=== PATIENT | male | born 1970 | race American Indian/Alaskan Native ===

== ENCOUNTER 2018-01-11 15:15 | Inpatient (IN) | payer MEDICARE, BC ==
[2018-01-11] MEDS ORDERED: Aspirin 325 mg EC Tablets PO STA (15:30)
--- NOTE | 2018-01-11 15:35 | C.PDOC ---
History Of Present Illness 47 y/o male with history of HTN, CHF and End stage Renal disease presents to ED after dialysis with c/o chest pain 4/10 and palpitations with associated nausea and sob. Patient speaking in short sentences and denies vomiting, abdominal pain , leg swelling, lightheadedness or any other complaints at this time. PMD Dr. Johns in [place], [place] Time Seen by Provider: 01/11/18 15:22 Chief Complaint (Nursing): Chest Pain History Per: Patient History/Exam Limitations: no limitations Onset/Duration Of Symptoms: Hrs Current Symptoms Are (Timing): Still Present Quality: "Pain" Past Medical History Reviewed: Historical Data, Nursing Documentation, Vital Signs Vital Signs: Last Vital Signs Temp 100.5 F H 01/11/18 15:39 Pulse 98 H 01/11/18 17:04 Resp 21 01/11/18 17:04 BP 92/55 L 01/11/18 17:04 Pulse Ox 100 01/11/18 17:37 - Medical History PMH: CHF, HTN Surgical History: No Surg Hx Family History: States: No Known Family Hx - Social History Hx Alcohol Use: No Hx Substance Use: No - Immunization History Hx Tetanus Toxoid Vaccination: No Hx Influenza Vaccination: No Hx Pneumococcal Vaccination: No Review Of Systems Constitutional: Negative for: Fever, Chills Cardiovascular: Positive for: Chest Pain, Palpitations Respiratory: Positive for: Shortness of Breath. Negative for: Cough Gastrointestinal: Positive for: Nausea. Negative for: Vomiting, Abdominal Pain Skin: Negative for: Rash Physical Exam - Physical Exam Appears: Non-toxic, Other (Anxious) Skin: Warm, Dry, No Rash Head: Atraumatic, Normacephalic Eye(s): bilateral: Normal Inspection Oral Mucosa: Moist Neck: Normal ROM, Supple Cardiovascular: Rhythm Regular, Other (Tachycardic) Respiratory: Normal Breath Sounds, No Rales, No Rhonchi, No Wheezing Gastrointestinal/Abdominal: Soft, No Tenderness, No Guarding, No Rebound Extremity: No Pedal Edema, No Calf Tenderness, Capillary Refill (<2 seconds), Other (AV fistula to right arm noted) Neurological/Psych: Oriented x3, Normal Speech, Normal Cognition ED Course And Treatment - Laboratory Results Result Diagrams: 01/11/18 15:54 01/11/18 15:54 ECG: Interpreted By Me, Viewed By Me ECG Rhythm: Sinus Tachycardia, L BBB Rate From EC (BPM) O2 Sat by Pulse Oximetry: 100 (RA) Pulse Ox Interpretation: Normal Progress Note: EKG, CXR, Blood work ordered. Apririn adminsitered. Spoke to Dr. Ortiz, consult with diyalysis doctor . Patient on repeat vitals fever of 102 started on antibiotics to treat possible infection. Patient stable feeling comfortable denies any pain sat O2 at 100%. Spoke to Dr. Herrera leather currier for consult Disposition Discussed With Dr.: Almita Ortiz Doctor Will See Patient In The: Hospital Counseled Patient/Family Regarding: Studies Performed - Disposition Disposition: HOSPITALIZED Disposition Time: 17:31 Condition: GUARDED - Clinical Impression Clinical Impression: Chest pain, SOB (shortness of breath) - Scribe Statement The provider has reviewed the documentation as recorded by the Scribe Artie Mcpherson All medical record entries made by the Scribe were at my direction and personally dictated by me. I have reviewed the chart and agree that the record accurately reflects my personal performance of the history, physical exam, medical decision making, and the department course for this patient. I have also personally directed, reviewed, and agree with the discharge instructions and disposition. Decision To Admit - Pt Status Changed To: Hospital Disposition Of: Observation - InPatient: Physician Admission Certification: I certify that this patient requires 2 or more midnights of care for the following reason:: cp, SOB in patient with multiple risk factors. Abnormal EKG - . Bed Request Type: Telemetry Patient Diagnosis: Chest pain, SOB (shortness of breath)
[2018-01-11 15:57] LABS: BASO # 0.1 K/uL (0.0-0.2); BASO % 1.1 % (0.0-2.0); EOS % 0.2 % (0.0-4.0); HEMOGLOBIN 11.1 g/dL (12.0-18.0); LYMPH # 2.4 K/uL (1.0-4.3); LYMPH % 20.9 % (20.0-40.0); MEAN CELL VOLUME 91.8 fL (80.0-94.0); MEAN CORPUSCULAR HEMOGLOBIN 31.4 pg (27.0-31.0); MEAN CORPUSCULAR HGB CONC 34.2 g/dL (33.0-37.0); MEAN PLATELET VOLUME 7.1 fL (7.2-11.7); MONO # 1.4 K/uL (0.0-0.8); MONO % 11.7 % (0.0-10.0); NEUT # 7.7 K/uL (1.8-7.0); NEUT % 66.1 % (50.0-75.0); RBC 3.54 Mil/uL (4.40-5.90); RED CELL DISTRIBUTION WIDTH 13.4 % (11.5-14.5); WHITE BLOOD COUNT 11.7 K/uL (4.8-10.8)
--- NOTE | 2018-01-11 16:17 | RAD ---
PROCEDURE: CHEST RADIOGRAPH, 1 VIEW HISTORY: chest pain COMPARISON: None available. FINDINGS: LUNGS: Clear. PLEURA: No pneumothorax or pleural fluid seen. CARDIOVASCULAR: No radiographic findings to suggest acute or significant cardiovascular disease. OSSEOUS STRUCTURES: No significant abnormalities. VISUALIZED UPPER ABDOMEN: Normal. OTHER FINDINGS: None. IMPRESSION: No active disease.
[2018-01-11 16:35] LABS: ALBUMIN 4.2 g/dL (3.5-5.0); CALCIUM 9.2 mg/dl (8.6-10.4)
[2018-01-11 16:38] LABS: TROPONIN I 0.07 ng/mL (0.00-0.120)
[2018-01-11] MEDS ORDERED: Vancomycin 1 gm/NS 200 ml 1 GM/200 ML BAG IVPB STA (18:08)
[2018-01-11] MEDS ORDERED: Piperacill/Tazo 3.375gm in Dex 3.375 GM/50 ML BAG IVPB STA (18:08)
[2018-01-11 18:57] LABS: VENOUS BLOOD GAS BASE EXCESS 10.5 mmol/L (0.0-2.0); VENOUS BLOOD GAS PCO2 41 mmHg (40-60); VENOUS BLOOD GAS PO2 35 mm/Hg (30-55); VENOUS BLOOD PH 7.53 (7.32-7.43)
--- NOTE | 2018-01-11 19:00 | RAD ---
HISTORY: Sepsis Patient COMPARISON: January 11, 2018. 15:53. FINDINGS: LUNGS: No active pulmonary disease. PLEURA: No significant pleural effusion identified, no pneumothorax apparent. CARDIOVASCULAR: She No radiographic findings to suggest acute or significant cardiovascular disease. OSSEOUS STRUCTURES: No significant abnormalities. VISUALIZED UPPER ABDOMEN: Normal. OTHER FINDINGS: None. IMPRESSION: No active disease. No significant interval change compared to the prior examination(s).
--- NOTE | 2018-01-11 20:09 | CP.PCM.HP ---
History of Present Illness - History of Present Illness History of Present Illness: COMPREHENSIVE HISTORY & PHYSICAL EXAM HPI ADMITTED [facility] FOR CHEST PAIN AND FEVER OF 101F NO COUGH/SOB PAST HIST. HTN/CRF ON HD PERSONAL HIST: Smoking. N Alcohol. N Allergy N Travel_- . FAMILY HIST : ROS : Constitutional: . Eyes: Negative for redness, swelling, itching, discharge, vision changes, blurry vision, double vision, glaucoma, cataracts, Ears: Negative for hearing loss, ringing, , tinnitus, vertigo Nose: Negative for rhinorrhea, stuffiness, sniffing, itching, postnasal drip, discoloration, nasal congestion and epistaxis. Throat: Negative for throat clearing, sore throat, hoarseness, difficulty swallowing and difficulty speaking. Respiratory: Negative for cough, chest tightness, sputum or phlegm, chronic cough, hemoptysis, wheezing, snoring at night, pleuritic chest pain and daytime somnolence. Cardiovascular: Negative, Edema of legs, leg cramps, angina, claudication, , irregular heartbeat, Neurology: Negative for irritability, muscle weakness, numbness and tingling, seizures, tremors, migraines, slurred speech, syncope, memory loss, mood changes , recurrent headaches Gastrointestinal: Negative for difficulty swallowing, diarrhea, constipation, black stools, rectal bleeding, nausea, flatulence, reflux, poor appetite, changes in bowel habits, abdominal pain Genitourinary: Negative for frequent urination, hematuria, discharge, incontinence, urinary retention, frequent UTI, Psychiatric: Negative for depression, anxiety/panic, suicidal tendencies, Musculoskeletal: Negative for swollen joints, back pain, , neck pain, morning stiffness of joints, . Skin: Negative for rash, ulcers, itching, dry skin and pigmented lesions. P/E: Constitutional: Appears stated age and in no apparent distress. Head: Normocephalic. Ears: External ear canals patent without inflammation. Tympanic membranes intact with normal light reflex and landmark. Eyes: Pupils are central, bilaterally equal, symmetrical and reacts to light with normal movements and no icterus or pallor. Nose: External nares are patent. Mucosa is pink Mouth-Throat: Good general appearance and condition. No post-pharyngeal/oropharyngeal erythema and tonsillar hypertrophy. Good dental hygiene. Neck-Lymphatic: Neck is supple with normal ROM, no thyromegaly, lymph nodes or masses. JVD is normal with no carotid bruit. Lungs: Clear to percussion and auscultation with bilateral normal air entry. Cardiovascular: S1 and S2 are normal with no murmurs, gallops and rub. GI Exam: No hepatomegaly. Abdomen is soft and non-tender. No Organomegaly , masses or hernias are evident and bowel sounds are normal and active. Neurology: Higher function and all cranial nerves intact, with no gross motor or sensory deficit. Superficial and deep reflexes are normal with downwards planters. No cerebellar deficit with normal gait. Musculoskeletal: No tender spots with normal curvature of the spine with no swelling or restricted ROM of the small and large joints. Extremities: Homans sign absent. Intact pulses with no pitting edema, calf tenderness or skin color changes. L ARM AV SHUNT Skin: No rash, eruptions or abnormal skin pigmentation LAB/RADIOLOGY: ASSESMENT : ACUTE CORONARY SYND SEPSIS CRF ON HD ACUTE ON CH. SYSTOLIC HF Present on Admission - Present on Admission Any Indicators Present on Admission: No Past Patient History - Past Social History Smoking Status: Never Smoked - CARDIAC Hx Congestive Heart Failure: Yes Hx Hypertension: Yes - RENAL Hx Renal Failure: Yes - PSYCHIATRIC Hx Substance Use: No Meds Allergies/Adverse Reactions: Allergies Allergy/AdvReac Type Severity Reaction Status Date / Time No Known Allergies Allergy Verified 01/11/18 15:23 Results - Vital Signs Recent Vital Signs: Last Vital Signs Temp 98.3 F 01/11/18 19:20 Pulse 92 H 01/11/18 19:20 Resp 20 01/11/18 19:20 BP 104/68 01/11/18 19:20 Pulse Ox 98 01/11/18 19:20 - Labs Result Diagrams: 01/14/18 11:32 01/14/18 11:32 Labs: Laboratory Results - last 24 hr 01/11/18 01/11/18 01/11/18 15:54 15:54 18:53 WBC 11.7 H RBC 3.54 L Hgb 11.1 L Hct 32.5 L MCV 91.8 MCH 31.4 H MCHC 34.2 RDW 13.4 Plt Count 337 MPV 7.1 L Neut % (Auto) 66.1 Lymph % (Auto) 20.9 [place] % (Auto) 11.7 H Eos % (Auto) 0.2 Baso % (Auto) 1.1 Neut # (Auto) 7.7 H Lymph # (Auto) 2.4 [place] # (Auto) 1.4 H Eos # (Auto) 0.0 Baso # (Auto) 0.1 pO2 35 VBG pH 7.53 H VBG pCO2 41 VBG HCO3 32.5 VBG Total CO2 35.6 H VBG O2 Sat (Calc) 76.9 H VBG Base Excess 10.5 H VBG Potassium 3.2 L Glucose 133 H Lactate 1.5 Sodium 140 138.0 Potassium 3.6 Chloride 89 L 97.0 L Carbon Dioxide 29 Anion Gap 25 H BUN 40 H Creatinine 8.8 H* Est GFR ( Amer) 8 Est GFR (Non-Af Amer) 6 Random Glucose 109 Calcium 9.2 Total Bilirubin 1.0 AST 27 ALT 21 Alkaline Phosphatase 77 Troponin I 0.0700 NT-Pro-B Natriuret Pep 6870 H Total Protein 8.5 H Albumin 4.2 Globulin 4.3 H Albumin/Globulin Ratio 1.0 Venous Blood Potassium 3.2 L
--- NOTE | 2018-01-11 21:26 | CP.PCM.CON ---
History of Present Illness - History of Present Illness History of Present Illness: INFECTIOUS DISEASE CONSULT; HPI; 47 y/o male with history of HTN, CHF and End stage Renal disease on HD TTS, presents to ED after dialysis with c/o chest pain 4/10 and palpitations with associated nausea and Shortness of breath. Patient was found to have fever of 102 with chills, myalgias and pain both lower extremities. Patient's proBNP was 6870, a chest x-ray was unremarkable with no active disease. Patient's d-dimer was also elevated to 863. Patient was empirically started on Zosyn 3.3751 dose and IV vancomycin 1 g dose was given in the ER after appropriate cultures. Patient denies any history of hemoptysis/or hematemesis. Patient reported he was at urologist Dr. Cervantes 's office yesterday because of hematuria, who sent him to lab [facility] for appropriate UA and urine cultures and patient was supposed to see him the next day that he had chest pain and came to the ER. INFECTIOUS DISEASE CONSULTATION REQUESTED BY PMD FOR ELEVATED FEVERS AND LEUKOCYTOSIS. PATIENT UNDERWENT VQ SCAN THIS A.M WHICH WAS NEGATIVE FOR PE. VENOUS DOPPLERS LOWER EXTREMITY ALSO -VE FOR DVT. PMH: CHF, HTN Surgical History: No Surg Hx Family History: States: No Known Family Hx - Social History Hx Alcohol Use: No Hx Substance Use: No - Immunization History Hx Tetanus Toxoid Vaccination: No Hx Influenza Vaccination: No Hx Pneumococcal Vaccination: No ALLERGY; NKA Review of Systems - Review of Systems Systems not reviewed;Unavailable: Respiratory Distress - Constitutional Constitutional: Chills, Fever. absent: Headache - EENT Eyes: absent: Change in Vision, Photophobia Nose/Mouth/Throat: absent: Mouth Lesions, Sore Throat - Cardiovascular Cardiovascular: Chest Pain, Dyspnea, Leg Edema - Respiratory Respiratory: absent: Cough, Hemoptysis - Gastrointestinal Gastrointestinal: absent: Abdominal Pain, Constipation, Diarrhea, Loose Stools - Genitourinary Genitourinary: Difficulty Urinating, Dysuria, Hematuria, Urinary Hesitance - Musculoskeletal Musculoskeletal: Myalgias. absent: Back Pain, Neck Pain - Neurological Neurological: absent: Dizziness, Headaches - Hematologic/Lymphatic Hematologic: As Per HPI. absent: Easy Bruising, Lymphadenopathy Past Patient History - Past Social History Smoking Status: Never Smoked - CARDIAC Hx Congestive Heart Failure: Yes Hx Hypertension: Yes - RENAL Hx Renal Failure: Yes - PSYCHIATRIC Hx Substance Use: No Meds Allergies/Adverse Reactions: Allergies Allergy/AdvReac Type Severity Reaction Status Date / Time No Known Allergies Allergy Verified 01/11/18 15:23 - Medications Medications: Current Medications Aspirin (Ecotrin) 81 mg PO DAILY [facility] Cinacalcet (Sensipar) 60 mg PO DAILY [facility] Heparin Sodium (Porcine) (Heparin) 5,000 units SC Q8 [facility] Ceftriaxone Sodium 1 gm/ (Sodium Chloride) 100 mls @ 100 mls/hr IVPB DAILY [facility] PRN Reason: Protocol Sevelamer Carbonate (Renvela) 3,200 mg PO TIDCC [facility] Vitamin B Complex/Vit C/Folic Acid (Nephro-Kell) 1 tab PO DAILY [facility] Physical Exam - Constitutional Appears: No Acute Distress - Head Exam Head Exam: NORMAL INSPECTION - Eye Exam Eye Exam: EOMI, PERRL - ENT Exam ENT Exam: Normal Oropharynx - Neck Exam Neck exam: Positive for: Normal Inspection - Respiratory Exam Respiratory Exam: Clear to Auscultation Bilateral - Cardiovascular Exam Cardiovascular Exam: Tachycardia, REGULAR RHYTHM, +S1, +S2 - GI/Abdominal Exam GI & Abdominal Exam: Normal Bowel Sounds - Extremities Exam Extremities exam: Positive for: pedal pulses present. Negative for: calf tenderness, pedal edema - Neurological Exam Neurological exam: Alert, CN II-XII Intact, Oriented x3, Reflexes Normal - Psychiatric Exam Psychiatric exam: Normal Affect, Normal Mood - Skin Skin Exam: Normal Color, Warm Results - Vital Signs Recent Vital Signs: Last Vital Signs Temp 98.3 F 01/11/18 19:20 Pulse 95 H 01/11/18 20:06 Resp 20 01/11/18 19:20 BP 104/68 01/11/18 19:20 Pulse Ox 98 01/11/18 19:20 - Labs Result Diagrams: 01/12/18 06:58 01/12/18 06:58 Labs: Laboratory Results - last 24 hr 01/11/18 01/11/18 01/11/18 15:54 15:54 18:53 WBC 11.7 H RBC 3.54 L Hgb 11.1 L Hct 32.5 L MCV 91.8 MCH 31.4 H MCHC 34.2 RDW 13.4 Plt Count 337 MPV 7.1 L Neut % (Auto) 66.1 Lymph % (Auto) 20.9 [place] % (Auto) 11.7 H Eos % (Auto) 0.2 Baso % (Auto) 1.1 Neut # (Auto) 7.7 H Lymph # (Auto) 2.4 [place] # (Auto) 1.4 H Eos # (Auto) 0.0 Baso # (Auto) 0.1 pO2 35 VBG pH 7.53 H VBG pCO2 41 VBG HCO3 32.5 VBG Total CO2 35.6 H VBG O2 Sat (Calc) 76.9 H VBG Base Excess 10.5 H VBG Potassium 3.2 L Glucose 133 H Lactate 1.5 Sodium 140 138.0 Potassium 3.6 Chloride 89 L 97.0 L Carbon Dioxide 29 Anion Gap 25 H BUN 40 H Creatinine 8.8 H* Est GFR ( Amer) 8 Est GFR (Non-Af Amer) 6 Random Glucose 109 Calcium 9.2 Total Bilirubin 1.0 AST 27 ALT 21 Alkaline Phosphatase 77 Troponin I 0.0700 NT-Pro-B Natriuret Pep 6870 H Total Protein 8.5 H Albumin 4.2 Globulin 4.3 H Albumin/Globulin Ratio 1.0 Venous Blood Potassium 3.2 L - Imaging and Cardiology Chest x-ray Status: Report reviewed by me (NAD) Assessment & Plan (1) Chest pain Assessment and Plan: PER PMD. Status: Acute (2) Fever and chills Assessment and Plan: SEPTIC W/U IN PROGRESS SOURCE OF FEVER NOT CLEAR ? (HEMATURIA ) START iv CEFTRIAXONE 1 G ONCE A DAY DAILY 01/11/18. PATIENT GOT ONE DOSE OF VANCOMYCIN 1 G IN THE ER. Status: Acute (3) ESRD (end stage renal disease) on dialysis Assessment and Plan: ON HD TTS Status: Acute (4) SOB (shortness of breath) Assessment and Plan: CXR -NAD. VQ SCAN -VE PE. Status: Acute
[2018-01-11 22:21] LABS: VENOUS BLOOD GAS BASE EXCESS 10.3 mmol/L (0.0-2.0); VENOUS BLOOD GAS PCO2 46 mmHg (40-60); VENOUS BLOOD GAS PO2 38 mm/Hg (30-55); VENOUS BLOOD PH 7.49 (7.32-7.43)
[2018-01-11 23:23] LABS: CK-MB < 0.22 ng/mL (0.0-3.38)
[2018-01-12 07:08] LABS: BASO # 0.1 K/uL (0.0-0.2); BASO % 0.4 % (0.0-2.0); EOS # 0.1 K/uL (0.0-0.7); EOS % 0.7 % (0.0-4.0); HEMOGLOBIN 10.3 g/dL (12.0-18.0); LYMPH # 2.9 K/uL (1.0-4.3); LYMPH % 17.8 % (20.0-40.0); MEAN CORPUSCULAR HEMOGLOBIN 30.9 pg (27.0-31.0); MEAN CORPUSCULAR HGB CONC 33.6 g/dL (33.0-37.0); MEAN PLATELET VOLUME 6.7 fL (7.2-11.7); MONO # 1.8 K/uL (0.0-0.8); MONO % 11.2 % (0.0-10.0); NEUT # 11.3 K/uL (1.8-7.0); NEUT % 69.9 % (50.0-75.0); RBC 3.32 Mil/uL (4.40-5.90); RED CELL DISTRIBUTION WIDTH 13.5 % (11.5-14.5); WHITE BLOOD COUNT 16.2 K/uL (4.8-10.8)
--- NOTE | 2018-01-12 07:19 | NM ---
EXAM: NM Lung Perfusion and Ventilation Scan CLINICAL HISTORY: 47 years old, male; Pain and signs and symptoms; Shortness of breath and other: Nausea, palpitations; Chest pain; Type not specified; Patient HX: HTN, chf, end stage renal disease (on dialysis); Additional info: SOB. Chest x-rays sent for comparison. Additional clinical information (emergency department documentation) also sent for clinical correlation. TECHNIQUE: Nuclear Medicine ventilation and perfusion images of the lungs were obtained in multiple projections following inhalation of and injection of Tc99m MAA. COMPARISON: CR - CHEST PORTABLE 2018-01-11 18:29 FINDINGS: Ventilation: Unremarkable. No ventilation defects. Perfusion: Unremarkable. No perfusion defects. IMPRESSION: No findings to suggest pulmonary embolism.
[2018-01-12 07:47] LABS: CK-MB < 0.22 ng/mL (0.0-3.38)
[2018-01-12 08:19] LABS: CALCIUM 9.6 mg/dl (8.6-10.4)
[2018-01-12] MEDS ORDERED: Perflutren Lipid Microsphere 1.5 ML SUS IV ONE (09:16)
[2018-01-12] MEDS: Multivitamin Vitamin B Complex (Nephro-Vite) Tab PO SCH (10:06)
--- NOTE | 2018-01-12 12:03 | VASCLAB ---
PROCEDURE: Lower Extremity Venous Duplex Exam. HISTORY: sob PRIORS: None. TECHNIQUE: Bilateral common femoral, femoral, popliteal and posterior tibial, peroneal and great saphenous veins were evaluated. Flow was assessed with color Doppler, compressibility, assessment of phasic flow and augmentation response. Report prepared by Levi Mckeon, CAITLIN, RVT FINDINGS: RIGHT: 1. Common Femoral Vein: 1.1. Compressibility - Fully compressible: Thrombus - None : Flow - Phasic: Augmentation -Normal: Reflux - None. 2. Femoral Vein: 2.1. Compressibility - Fully compressible: Thrombus - None : Flow - Phasic: Augmentation -Normal: Reflux - None. 3. Popliteal Vein: 3.1. Compressibility - Fully compressible: Thrombus - None : Flow - Phasic: Augmentation -Normal: Reflux - None. 4. Posterior Tibial Vein: 4.1. Compressibility - Fully compressible: Thrombus - None: Flow - Phasic: Augmentation -Normal: Reflux - None. 5. Peroneal Vein: 5.1. Compressibility - Fully compressible: Thrombus - None: Flow - Phasic: Augmentation -Normal: Reflux - None. 6. Great Saphenous Vein: 6.1. Compressibility - Fully compressible: Thrombus - None: Flow - Phasic: Augmentation - Normal: Reflux - None. LEFT: 1. Common Femoral Vein: 1.1. Compressibility - Fully compressible: Thrombus - None: Flow - Phasic: Augmentation -Normal: Reflux - None. 2. Femoral Vein: 2.1. Compressibility - Fully compressible: Thrombus - None: Flow - Phasic: Augmentation -Normal: Reflux - None. 3. Popliteal Vein: 3.1. Compressibility - Fully compressible: Thrombus - None : Flow - Phasic: Augmentation -Normal: Reflux - None. 4. Posterior Tibial Vein: 4.1. Compressibility - Fully compressible: Thrombus - None: Flow - Phasic: Augmentation -Normal: Reflux - None. 5. Peroneal Vein: 5.1. Compressibility - Fully compressible: Thrombus - None: Flow - Phasic: Augmentation -Normal: Reflux - None. 6. Great Saphenous Vein: 6.1. Compressibility - Fully compressible: Thrombus - None: Flow - Phasic: Augmentation - Normal: Reflux - None. OTHER FINDINGS: Right: None significant. Left: None significant. IMPRESSION: Right: No evidence of deep or superficial vein thrombosis of the right lower extremity. Normal valve function noted of the right side. Left: No evidence of deep or superficial vein thrombosis of the left lower extremity. Normal valve function noted of the left side.
--- NOTE | 2018-01-12 13:51 | CP.PCM.PN ---
Subjective - Date & Time of Evaluation Date of Evaluation: 01/12/18 Time of Evaluation: 13:48 - Subjective Subjective: CHIEF COMPLAINTS TODAY : NO FURTHER TEMP/CP ROS. HEENT : N. Resp : No cough, wheezing ,pleuritic CP ,or hemoptysis Cardio : No anginal CP, PND, orthopnea, palpitation GI : No abd.pain, n/v ,diarrhea or GI bleeding . TURK[employer] RUBBER : No headache, vertigo, focal deficit. Musculoskel : No joint swelling , Derm : No rash Psych : Normal affect. Ext : No swelling ,calf pain PE. Pt. is alert awake in no distress. V.S As noted in the chart Head ,ear nose,throat and eyes : Normal. Neck : Supple with normal carotids. Lungs: Clear air entry. Heart : S1 & S2 normal with S4. No murmur. Abd : Soft non tender with normal bowel sounds. Neuro : Moves all ext. with no localized deficit. Ext : No edema with intact pulses.Non tender calves Derm : No rashes or decubitus ulcer. LABS/RADIOLOGY: V/Q SCAN AND VENOUS DOPPLER NEG ECHO : LFEV 25%, APICAL BALLOONING SEPTAL WALL MOTION ABN ASSESSMENT/PLAN : ADD CARVIEDOL IV AB NO CATH NOW Objective - Vital Signs/Intake and Output Vital Signs (last 24 hours): Temp Pulse Resp BP Pulse Ox 97.5 F L 102 H 20 119/75 98 01/12/18 07:00 01/12/18 07:44 01/12/18 07:00 01/12/18 07:00 01/12/18 07:00 Intake and Output: 01/12/18 01/12/18 11:59 23:59 Intake Total 20 Balance 20 - Medications Medications: Current Medications Aspirin (Ecotrin) 81 mg PO DAILY [facility] Last Admin: 01/12/18 10:05 Dose: 81 mg Cinacalcet (Sensipar) 60 mg PO DAILY [facility] Last Admin: 01/12/18 10:05 Dose: 60 mg Heparin Sodium (Porcine) (Heparin) 5,000 units SC Q8 [facility] Last Admin: 01/12/18 05:26 Dose: 5,000 units Ceftriaxone Sodium 1 gm/ (Sodium Chloride) 100 mls @ 100 mls/hr IVPB DAILY [facility] PRN Reason: Protocol Last Admin: 01/12/18 10:08 Dose: 100 mls/hr Pneumococcal Polyvalent Vaccine (Pneumovax 23 Vaccine) 0.5 ml IM .ONCE ONE Stop: 01/13/18 12:01 Sevelamer Carbonate (Renvela) 3,200 mg PO TIDCC [facility] Last Admin: 01/12/18 12:58 Dose: 3,200 mg Vitamin B Complex/Vit C/Folic Acid (Nephro-Kell) 1 tab PO DAILY [facility] Last Admin: 01/12/18 10:06 Dose: 1 tab - Labs Labs: 01/12/18 06:58 01/12/18 06:58
--- NOTE | 2018-01-12 15:18 | CP.PCM.PN ---
Subjective - Date & Time of Evaluation Date of Evaluation: 01/12/18 Time of Evaluation: 09:45 - Subjective Subjective: Renal Note pt seen and examined labs and vitals reviewed plan for HD in AM as per TTS schedule Thanks for consult Objective - Vital Signs/Intake and Output Vital Signs (last 24 hours): Temp Pulse Resp BP Pulse Ox 97.5 F L 102 H 20 119/75 98 01/12/18 07:00 01/12/18 07:44 01/12/18 07:00 01/12/18 07:00 01/12/18 07:00 Intake and Output: 01/12/18 01/12/18 06:59 18:59 Intake Total 460 Balance 460 - Medications Medications: Current Medications Aspirin (Ecotrin) 81 mg PO DAILY [facility] Last Admin: 01/12/18 10:05 Dose: 81 mg Carvedilol (Coreg) 12.5 mg PO BID [facility] Cinacalcet (Sensipar) 60 mg PO DAILY [facility] Last Admin: 01/12/18 10:05 Dose: 60 mg Heparin Sodium (Porcine) (Heparin) 5,000 units SC Q8 [facility] Last Admin: 01/12/18 14:53 Dose: 5,000 units Ceftriaxone Sodium 1 gm/ (Sodium Chloride) 100 mls @ 100 mls/hr IVPB DAILY [facility] PRN Reason: Protocol Last Admin: 01/12/18 10:08 Dose: 100 mls/hr Ondansetron HCl (Zofran Inj) 4 mg IVP Q6 PRN PRN Reason: Nausea/Vomiting Last Admin: 01/12/18 14:53 Dose: 4 mg Pneumococcal Polyvalent Vaccine (Pneumovax 23 Vaccine) 0.5 ml IM .ONCE ONE Stop: 01/13/18 12:01 Sevelamer Carbonate (Renvela) 3,200 mg PO TIDCC [facility] Last Admin: 01/12/18 12:58 Dose: 3,200 mg Vitamin B Complex/Vit C/Folic Acid (Nephro-Kell) 1 tab PO DAILY [facility] Last Admin: 01/12/18 10:06 Dose: 1 tab - Labs Labs: 01/12/18 06:58 01/12/18 06:58
--- NOTE | 2018-01-12 21:10 | CP.PCM.PN ---
Subjective - Date & Time of Evaluation Date of Evaluation: 01/12/18 Time of Evaluation: 21:10 - Subjective Subjective: CHIEF COMPLAINTS TODAY : TEMP DOWN -N TODAY DENIES ANY FURTHER CHEST PAIN. DECREASE SHORTNESS OF BREATH. ROS. HEENT : N. Resp : No cough, wheezing ,pleuritic CP ,or hemoptysis Cardio : +VE CHEST PAIN ,NO PND, orthopnea, palpitation GI : No abd.pain, n/v ,diarrhea or GI bleeding . GIRL FRIDAY : No headache, vertigo, focal deficit. Musculoskel : No joint swelling , Derm : No rash Psych : Normal affect. Ext : No swelling ,calf pain PE. Pt. is alert awake in no distress. V.S As noted in the chart Head ,ear nose,throat and eyes : Normal. Neck : Supple with normal carotids. Lungs: Clear air entry. Heart : S1 & S2 normal with S4. No murmur. Abd : Soft non tender with normal bowel sounds. Neuro : Moves all ext. with no localized deficit. Ext : No edema with intact pulses.Non tender calves Derm : No rashes or decubitus ulcer. LABS/RADIOLOGY: V/Q SCAN AND VENOUS DOPPLER NEG ECHO : LFEV 25%, APICAL BALLOONING SEPTAL WALL MOTION ABN Objective - Vital Signs/Intake and Output Vital Signs (last 24 hours): Temp Pulse Resp BP Pulse Ox 98.7 F 100 H 20 121/77 98 01/12/18 15:03 01/12/18 16:27 01/12/18 15:03 01/12/18 17:37 01/12/18 16:27 - Medications Medications: Current Medications Acetaminophen (Tylenol 325mg Tab) 650 mg PO Q6 PRN PRN Reason: Pain Aspirin (Ecotrin) 81 mg PO DAILY [facility] Last Admin: 01/12/18 10:05 Dose: 81 mg Carvedilol (Coreg) 12.5 mg PO BID [facility] Last Admin: 01/12/18 17:37 Dose: 12.5 mg Cinacalcet (Sensipar) 60 mg PO DAILY [facility] Last Admin: 01/12/18 10:05 Dose: 60 mg Heparin Sodium (Porcine) (Heparin) 5,000 units SC Q8 [facility] Last Admin: 01/12/18 14:53 Dose: 5,000 units Ceftriaxone Sodium 1 gm/ (Sodium Chloride) 100 mls @ 100 mls/hr IVPB DAILY [facility] PRN Reason: Protocol Last Admin: 01/12/18 10:08 Dose: 100 mls/hr Ondansetron HCl (Zofran Inj) 4 mg IVP Q6 PRN PRN Reason: Nausea/Vomiting Last Admin: 01/12/18 14:53 Dose: 4 mg Pneumococcal Polyvalent Vaccine (Pneumovax 23 Vaccine) 0.5 ml IM .ONCE ONE Stop: 01/13/18 12:01 Sevelamer Carbonate (Renvela) 3,200 mg PO TIDCC [facility] Last Admin: 01/12/18 17:36 Dose: 3,200 mg Vitamin B Complex/Vit C/Folic Acid (Nephro-Kell) 1 tab PO DAILY [facility] Last Admin: 01/12/18 10:06 Dose: 1 tab - Labs Labs: 01/12/18 06:58 01/12/18 06:58 Assessment and Plan (1) Fever and chills Assessment & Plan: W/U IN PROGRESS. SOURCE OF FEVER MOST LIKELY ? RECENT HEMATURIA AND DYSURIA F/U UA / URINE CULTURES CONTINUE iv CEFTRIAXONE 1 G ONCE A DAY DAILY. ADD IV VANCOMYCIN 1GM POST HD TTS X 5 DOSES.STARTING 01/13/18 F/U VANCO TROUGH PRIOR TO 4TH DOSE AND KEEP BTWEEN 10-20. EVAL TO CONSIDER CYSTOSCOPY. Status: Acute (2) Chest pain Assessment & Plan: W/U PER PMD. Status: Acute (3) SOB (shortness of breath) Status: Acute (4) ESRD (end stage renal disease) on dialysis Assessment & Plan: ON HD TTS. Status: Acute
--- NOTE | 2018-01-13 | CARD ---
APPROVED REPORT EKG Measurement Heart [id number] IA [id number] [id number] <Conclusion> Sinus tachycardia Left axis deviation Left bundle branch block Abnormal ECG
[2018-01-13] MEDS: Vancomycin 1 gm/NS 200 ml 1 GM/200 ML BAG IVPB SCH ×2 (10:00→14:57)
[2018-01-13] MEDS: Multivitamin Vitamin B Complex (Nephro-Vite) Tab PO SCH (10:00)
--- NOTE | 2018-01-13 10:46 | US ---
Renal ultrasound History: Hematuria. Comparison: None available. Technique: Real-time sonography was performed through the kidneys. Findings: Right kidney: Atrophic. 6.9 x 3.2 x 3.2 centimeters. Increased echogenicity of the renal parenchymal cortex suggestive for medical renal disease. Lower pole hypoechoic cyst measuring 9 x 7 x 9 millimeters. No calculi or hydronephrosis. Left Kidney: Atrophic. 8.1 x 4.4 x 4.7 centimeters. Midpole hypoechoic cyst with associated thickening of the peripheral wall measuring up to 2.7 x 3.1 x 3.1 centimeters. Increased echogenicity of the renal parenchymal cortex suggestive for medical renal disease. No calculi or hydronephrosis. Visualized aorta is grossly preserved. Urinary bladder is not well distended, limiting evaluation. Impression: 1. Atrophic kidneys bilaterally. 2. Bilateral renal cysts as described above. The left renal cyst appears to demonstrate a prominent wall thickening and measures up to 3.1 centimeters. Continued interval followup may be helpful if clinically indicated. 3. Increased echogenicity of the bilateral renal parenchymal cortices suggestive for medical renal disease. Clinical correlation. 4. Limited evaluation of the urinary bladder.
[2018-01-13] MEDS ORDERED: Pneumococcal 23-Valent Vaccine IM ONE (12:00)
--- NOTE | 2018-01-13 13:44 | CP.PCM.PN ---
Subjective - Date & Time of Evaluation Date of Evaluation: 01/13/18 Time of Evaluation: 13:43 - Subjective Subjective: CHIEF COMPLAINTS TODAY : NO FURTHER TEMP/CP PT. HAD CARDIAC CATH FEW WEEKS AGO IN [facility]. HEENT : N. Resp : No cough, wheezing ,pleuritic CP ,or hemoptysis Cardio : No anginal CP, PND, orthopnea, palpitation GI : No abd.pain, n/v ,diarrhea or GI bleeding . 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 Musculoskel : No joint swelling , Derm : No rash Psych : Normal affect. Ext : No swelling ,calf pain PE. Pt. is alert awake in no distress. V.S As noted in the chart Head ,ear nose,throat and eyes : Normal. Neck : Supple with normal carotids. Lungs: Clear air entry. Heart : S1 & S2 normal with S4. DANIELLE IN [facility]LS[facility] Abd : Soft non tender with normal bowel sounds. Neuro : Moves all ext. with no localized deficit. Ext : No edema with intact pulses.Non tender calves Derm : No rashes or decubitus ulcer. LABS/RADIOLOGY: V/Q SCAN AND VENOUS DOPPLER NEG ECHO : LFEV 25%, APICAL BALLOONING SEPTAL WALL MOTION ABN ASSESSMENT/PLAN : ADD CARVIEDOL IV AB NO CATH NOW Objective - Vital Signs/Intake and Output Vital Signs (last 24 hours): Temp Pulse Resp BP Pulse Ox 98 F 79 20 142/81 99 01/13/18 13:10 01/13/18 13:10 01/13/18 10:25 01/13/18 13:10 01/13/18 07:25 - Medications Medications: Current Medications Acetaminophen (Tylenol 325mg Tab) 650 mg PO Q6 PRN PRN Reason: Pain Aspirin (Ecotrin) 81 mg PO DAILY [facility] Last Admin: 01/12/18 10:05 Dose: 81 mg Carvedilol (Coreg) 12.5 mg PO BID [facility] Last Admin: 01/12/18 17:37 Dose: 12.5 mg Cinacalcet (Sensipar) 60 mg PO DAILY [facility] Last Admin: 01/12/18 10:05 Dose: 60 mg Heparin Sodium (Porcine) (Heparin) 5,000 units SC Q8 [facility] Last Admin: 01/13/18 05:34 Dose: 5,000 units Ceftriaxone Sodium 1 gm/ (Sodium Chloride) 100 mls @ 100 mls/hr IVPB DAILY [facility] PRN Reason: Protocol Last Admin: 01/12/18 10:08 Dose: 100 mls/hr Vancomycin/Sodium Chloride (Vancomycin 1 Gm/Ns 200 Ml) 1 gm in 200 mls @ 166.7 mls/hr IVPB TTS [facility] PRN Reason: Protocol Stop: 01/18/18 10:01 Ondansetron HCl (Zofran Inj) 4 mg IVP Q6 PRN PRN Reason: Nausea/Vomiting Last Admin: 01/12/18 14:53 Dose: 4 mg Sevelamer Carbonate (Renvela) 3,200 mg PO TIDCC [facility] Last Admin: 01/13/18 08:40 Dose: 1,600 mg Vitamin B Complex/Vit C/Folic Acid (Nephro-Kell) 1 tab PO DAILY [facility] Last Admin: 01/12/18 10:06 Dose: 1 tab - Labs Labs: 01/12/18 06:58 01/12/18 06:58
--- NOTE | 2018-01-13 14:21 | CP.PCM.PN ---
Subjective - Date & Time of Evaluation Date of Evaluation: 01/13/18 Time of Evaluation: 14:19 - Subjective Subjective: pt seen on dialysis labs and vitals reviewed tolerating dialysis well, says feel always cold while on HD d/w team Objective - Vital Signs/Intake and Output Vital Signs (last 24 hours): Temp Pulse Resp BP Pulse Ox 98 F 79 20 142/81 99 01/13/18 13:10 01/13/18 13:10 01/13/18 10:25 01/13/18 13:10 01/13/18 07:25 - Medications Medications: Current Medications Acetaminophen (Tylenol 325mg Tab) 650 mg PO Q6 PRN PRN Reason: Pain Aspirin (Ecotrin) 81 mg PO DAILY [facility] Last Admin: 01/12/18 10:05 Dose: 81 mg Carvedilol (Coreg) 12.5 mg PO BID [facility] Last Admin: 01/12/18 17:37 Dose: 12.5 mg Cinacalcet (Sensipar) 60 mg PO DAILY [facility] Last Admin: 01/12/18 10:05 Dose: 60 mg Heparin Sodium (Porcine) (Heparin) 5,000 units SC Q8 [facility] Last Admin: 01/13/18 05:34 Dose: 5,000 units Ceftriaxone Sodium 1 gm/ (Sodium Chloride) 100 mls @ 100 mls/hr IVPB DAILY [facility] PRN Reason: Protocol Last Admin: 01/12/18 10:08 Dose: 100 mls/hr Vancomycin/Sodium Chloride (Vancomycin 1 Gm/Ns 200 Ml) 1 gm in 200 mls @ 166.7 mls/hr IVPB TTS [facility] PRN Reason: Protocol Stop: 01/18/18 10:01 Ondansetron HCl (Zofran Inj) 4 mg IVP Q6 PRN PRN Reason: Nausea/Vomiting Last Admin: 01/12/18 14:53 Dose: 4 mg Sevelamer Carbonate (Renvela) 3,200 mg PO TIDCC [facility] Last Admin: 01/13/18 08:40 Dose: 1,600 mg Vitamin B Complex/Vit C/Folic Acid (Nephro-Kell) 1 tab PO DAILY [facility] Last Admin: 01/12/18 10:06 Dose: 1 tab - Labs Labs: 01/12/18 06:58 01/12/18 06:58
[2018-01-13 15:17] LABS: SQUAMOUS EPITHIAL 1 /hpf (0-5); URINE BACTERIA RARE (<OCC); URINE BILIRUBIN NEGATIVE (NEGATIVE); URINE BLOOD 1+ (NEGATIVE); URINE CLARITY Hazy (Clear); URINE COLOR Yellow (YELLOW); URINE GLUCOSE (UA) NORMAL (Normal); URINE LEUKOCYTE ESTERASE 3+ Leu/uL (Negative); URINE PROTEIN 2+ mg/dL (NEGATIVE); URINE UROBILINOGEN NORMAL mg/dL (0.2-1.0)
--- NOTE | 2018-01-13 19:25 | CP.PCM.PN ---
Subjective - Date & Time of Evaluation Date of Evaluation: 01/13/18 Time of Evaluation: 19:25 - Subjective Subjective: CHIEF COMPLAINTS TODAY : TEMP DOWN -N TODAY DENIES ANY FURTHER CHEST PAIN. DECREASE SHORTNESS OF BREATH. C/O LT.FLANK PAIN S/P HD TODAY (TTS ) ROS. HEENT : N. Resp : No cough, wheezing ,pleuritic CP ,or hemoptysis Cardio : +VE CHEST PAIN ,NO PND, orthopnea, palpitation GI : LT. FLANK PAIN, NO n/v ,diarrhea or GI bleeding . 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 Musculoskel : No joint swelling , Derm : No rash Psych : Normal affect. Ext : No swelling ,calf pain PE. Pt. is alert awake in no distress. V.S As noted in the chart Head ,ear nose,throat and eyes : Normal. Neck : Supple with normal carotids. Lungs: Clear air entry. Heart : S1 & S2 normal with S4. No murmur. Abd : Soft non tender with normal bowel sounds. Neuro : Moves all ext. with no localized deficit. Ext : No edema with intact pulses.Non tender calves Derm : No rashes or decubitus ulcer. LABS/RADIOLOGY: REVIEWED WBC 16.5 BLOOD CULTURES -VE TO DATE V/Q SCAN AND VENOUS DOPPLER NEG ECHO : LFEV 25%, APICAL BALLOONING SEPTAL WALL MOTION ABN Objective - Vital Signs/Intake and Output Vital Signs (last 24 hours): Temp Pulse Resp BP Pulse Ox 100.0 F H 79 20 101/66 97 01/13/18 18:20 01/13/18 17:36 01/13/18 17:36 01/13/18 18:55 01/13/18 15:06 - Medications Medications: Current Medications Acetaminophen (Tylenol 325mg Tab) 650 mg PO Q6 PRN PRN Reason: Pain Last Admin: 01/13/18 17:20 Dose: 650 mg Aspirin (Ecotrin) 81 mg PO DAILY [facility] Last Admin: 01/13/18 14:58 Dose: 81 mg Carvedilol (Coreg) 12.5 mg PO BID [facility] Last Admin: 01/13/18 18:55 Dose: Not Given Cinacalcet (Sensipar) 60 mg PO DAILY [facility] Last Admin: 01/13/18 10:00 Dose: Not Given Heparin Sodium (Porcine) (Heparin) 5,000 units SC Q8 [facility] Last Admin: 01/13/18 15:00 Dose: 5,000 units Ceftriaxone Sodium 1 gm/ (Sodium Chloride) 100 mls @ 100 mls/hr IVPB DAILY [facility] PRN Reason: Protocol Last Admin: 01/13/18 10:00 Dose: Not Given Vancomycin/Sodium Chloride (Vancomycin 1 Gm/Ns 200 Ml) 1 gm in 200 mls @ 166.7 mls/hr IVPB TTS [facility] PRN Reason: Protocol Stop: 01/18/18 10:01 Last Admin: 01/13/18 14:57 Dose: 166.7 mls/hr Ondansetron HCl (Zofran Inj) 4 mg IVP Q6 PRN PRN Reason: Nausea/Vomiting Last Admin: 01/12/18 14:53 Dose: 4 mg Sevelamer Carbonate (Renvela) 3,200 mg PO TIDCC [facility] Last Admin: 01/13/18 17:21 Dose: 3,200 mg Vitamin B Complex/Vit C/Folic Acid (Nephro-Kell) 1 tab PO DAILY [facility] Last Admin: 01/13/18 10:00 Dose: Not Given - Labs Labs: 01/12/18 06:58 01/12/18 06:58 Assessment and Plan (1) Fever and chills Assessment & Plan: W/U IN PROGRESS. SOURCE OF FEVER MOST LIKELY ? RECENT HEMATURIA AND DYSURIA F/U UA / URINE CULTURES CONTINUE iv CEFTRIAXONE 1 G ONCE A DAY DAILY. ADD IV VANCOMYCIN 1GM POST HD TTS X 5 DOSES.STARTING 01/13/18 F/U VANCO TROUGH PRIOR TO 4TH DOSE AND KEEP BTWEEN 10-20. EVAL TO CONSIDER CYSTOSCOPY. CT ABDOMEN /PELVIS ORDERED BY PMD. Status: Acute (2) Chest pain Status: Acute (3) SOB (shortness of breath) Status: Acute (4) ESRD (end stage renal disease) on dialysis Status: Acute
[2018-01-13] MEDS ORDERED: Iohexol 240 (50 ml) PO ONE (21:00)
--- NOTE | 2018-01-13 23:14 | CARD ---
APPROVED REPORT EXAM: Two-dimensional and M-mode echocardiogram with Doppler, color Doppler with contrast. Other Information Quality : GoodRhythm : INDICATION Dyspnea Chest Pain Congestive Heart Failure DIALYSIS Echo Enhancing Agent Indication: LOW EF Agent/Amount Used: Definity RISK FACTORS Hypertension Obesity 2D DIMENSIONS IVSd1.6 (0.7-1.1cm)LVDd6.2 (3.9-5.9cm) PWd1.5 (0.7-1.1cm)LVDs5.0 (2.5-4.0cm) FS (%) 20.6 %LVEF (%)25.0 (>50%) M-Mode DIMENSIONS RVDd2.14 (2.1-3.2cm)Left Atrium (MM)4.04 (2.5-4.0cm) IVSd1.14 (0.7-1.1cm)Aortic Root3.36 (2.2-3.7cm) LVDd7.31 (4.0-5.6cm)Aortic Cusp Exc.2.46 (1.5-2.0cm) PWd1.24 (0.7-1.1cm)FS (%) 27 % LVDs5.34 (2.0-3.8cm)LVEF (%)28 (>50%) Mitral Valve MV E Bswnhmwz76.3cm/sMV A Wxajkyep656.0cm/sE/A ratio0.4 TDI E/Lateral E'0.0E/Medial E'0.0 Tricuspid Valve TR Peak Isbiikwc706kz/sTR Peak Gr.[id number] LEFT VENTRICLE The Left Ventricle is severely dilated. There is mild to mild to moderate concentric left ventricular hypertrophy. Left ventricle systolic function is severely impaired. The Ejection Fraction is 20-25%. There is moderate to severe hypokinesis in the the basal anteroseptal wall. The left ventricular diastolic function is abnormal- Grade I-abnormal relaxation pattern. No left ventricle thrombus noted on this study. RIGHT VENTRICLE The right ventricle is normal size. The right ventricular systolic function is normal. ATRIA The left atrium is borderline dilated. The right atrium size is normal. The interatrial septum is intact with no evidence for an atrial septal defect. AORTIC VALVE The aortic valve is mildlymildly thickened. The aortic valve is trileaflet. No aortic regurgitation is present. There is no aortic valvular stenosis. There is no aortic valvular vegetation. MITRAL VALVE Mitral annular calcification is mild. There is no evidence of mitral valve prolapse. There is no mitral valve stenosis. Mitral regurgitation is mild. TRICUSPID VALVE The tricuspid valve is normal in structure. There is mild tricuspid regurgitation. Right ventricular systolic pressure is estimated at less than 30 mmHg. There is no pulmonary hypertension. There is no tricuspid valve prolapse or vegetation. There is no tricuspid valve stenosis. PULMONIC VALVE The pulmonary valve is normal in structure. There is trace pulmonic valvular regurgitation. There is no pulmonic valvular stenosis. GREAT VESSELS The aortic root is normal in size. The IVC is normal in size and collapses >50% with inspiration. PERICARDIAL EFFUSION There is no pericardial effusion. There is no pleural effusion. <Conclusion> The Left Ventricle is severely dilated. There is mild to mild to moderate concentric left ventricular hypertrophy. Left ventricle systolic function is severely impaired. The Ejection Fraction is 20-25%. The left ventricular diastolic function is abnormal- Grade I-abnormal relaxation pattern. The right ventricle is normal size. The right ventricular systolic function is normal. The left atrium is borderline dilated. The right atrium size is normal. Mitral regurgitation is mild. There is mild tricuspid regurgitation. The pulmonary valve is normal in structure.
--- NOTE | 2018-01-13 23:35 | CT ---
EXAM: CT Abdomen and Pelvis Without Intravenous Contrast CLINICAL HISTORY: 47 years old, male; Pain; Abdominal pain; Flank; Left upper quadrant (luq); Additional info: Left lower abdominal pain radiating to lower back TECHNIQUE: Axial computed tomography images of the abdomen and pelvis without intravenous contrast. All CT scans at this facility use one or more dose reduction techniques, viz.: automated exposure control; ma/kV adjustment per patient size (including targeted exams where dose is matched to indication; i.e. head); or iterative reconstruction technique. Coronal and sagittal reformatted images were created and reviewed. COMPARISON: No relevant prior studies available. FINDINGS: Lung bases: Trace left pleural effusion and lung base consolidation secondary to atelectasis or infiltrate. Mild right lung base atelectasis. ABDOMEN: Liver: There is a 2.1 x 1.0 cm low density lesion in the left hepatic lobe. Gallbladder and bile ducts: Unremarkable. No calcified stones. No ductal dilation. Pancreas: Unremarkable. No ductal dilation. Spleen: Unremarkable. No splenomegaly. Adrenals: Unremarkable. No mass. Kidneys and ureters: The kidneys are atrophic bilaterally. Solid appearing lesion in the upper pole the right kidney measures 2.0 x 2.1 x 3.1 cm. There is a cyst in the lower pole the right kidney measuring 11 mm. Thick walled, complex cystic mass in the upper to midpole the left kidney with moderate surrounding inflammatory stranding measuring 3.8 x 3.4 x 3.8 cm. Diagnostic considerations include infected cyst or abscess. Neoplasia is not excluded. Stomach and bowel: Mild diverticulosis is present in the sigmoid and descending colon. There is no evidence of diverticulitis. No obstruction. PELVIS: Appendix: Not visualized. Bladder: Decompressed. Reproductive: Unremarkable as visualized. ABDOMEN and PELVIS: Intraperitoneal space: Unremarkable. No free air. No significant fluid collection. Bones/joints: No acute fracture. No dislocation. Soft tissues: Unremarkable. Vasculature: The vasculature demonstrates diffuse mild atherosclerotic calcification. No abdominal aortic aneurysm. Lymph nodes: There are multiple small retroperitoneal lymph nodes. The largest lymph node at the level of the left renal hilum measures 1.3 cm. IMPRESSION: Solid appearing right renal lesion. Renal cell carcinoma should be considered until proven otherwise. Evaluation is limited by unenhanced technique. Followup MRI of the abdomen is recommended. Thick walled, complex left renal cystic mass with surrounding inflammatory stranding. Diagnostic considerations include infected renal cyst or abscess. Neoplasia is not excluded. Atrophic kidneys bilaterally. Right renal cyst. Diverticulosis without acute diverticulitis.
--- NOTE | 2018-01-13 23:52 | CP.PCM.PN ---
Subjective - Date & Time of Evaluation Date of Evaluation: 01/13/18 Time of Evaluation: 23:49 - Subjective Subjective: MRI w/ contrast recommended for f/u as per [facility] for mass seen on CT scan What looks like infected cyst on CT scan Call will be placed to Dr. Ortiz for further orders Marshall Edmonds PGY2 Objective - Vital Signs/Intake and Output Vital Signs (last 24 hours): Temp Pulse Resp BP Pulse Ox 100.0 F H 79 20 101/66 97 01/13/18 18:20 01/13/18 17:36 01/13/18 17:36 01/13/18 18:55 01/13/18 15:06 - Medications Medications: Current Medications Acetaminophen (Tylenol 325mg Tab) 650 mg PO Q6 PRN PRN Reason: Pain Last Admin: 01/13/18 17:20 Dose: 650 mg Aspirin (Ecotrin) 81 mg PO DAILY [facility] Last Admin: 01/13/18 14:58 Dose: 81 mg Carvedilol (Coreg) 12.5 mg PO BID [facility] Last Admin: 01/13/18 18:55 Dose: Not Given Cinacalcet (Sensipar) 60 mg PO DAILY [facility] Last Admin: 01/13/18 10:00 Dose: Not Given Heparin Sodium (Porcine) (Heparin) 5,000 units SC Q8 [facility] Last Admin: 01/13/18 21:02 Dose: 5,000 units Ceftriaxone Sodium 1 gm/ (Sodium Chloride) 100 mls @ 100 mls/hr IVPB DAILY [facility] PRN Reason: Protocol Last Admin: 01/13/18 23:25 Dose: 100 mls/hr Vancomycin/Sodium Chloride (Vancomycin 1 Gm/Ns 200 Ml) 1 gm in 200 mls @ 166.7 mls/hr IVPB TTS [facility] PRN Reason: Protocol Stop: 01/18/18 10:01 Last Admin: 01/13/18 14:57 Dose: 166.7 mls/hr Ondansetron HCl (Zofran Inj) 4 mg IVP Q6 PRN PRN Reason: Nausea/Vomiting Last Admin: 01/12/18 14:53 Dose: 4 mg Sevelamer Carbonate (Renvela) 3,200 mg PO TIDCC [facility] Last Admin: 01/13/18 17:21 Dose: 3,200 mg Vitamin B Complex/Vit C/Folic Acid (Nephro-Kell) 1 tab PO DAILY [facility] Last Admin: 01/13/18 10:00 Dose: Not Given - Labs Labs: 01/12/18 06:58 01/12/18 06:58
[2018-01-14] MEDS: Multivitamin Vitamin B Complex (Nephro-Vite) Tab PO SCH (09:52)
[2018-01-14 11:45] LABS: BASO # 0.1 K/uL (0.0-0.2); BASO % 0.7 % (0.0-2.0); EOS # 0.1 K/uL (0.0-0.7); EOS % 0.8 % (0.0-4.0); HEMOGLOBIN 9.7 g/dL (12.0-18.0); LYMPH # 2.9 K/uL (1.0-4.3); LYMPH % 16.6 % (20.0-40.0); MEAN CELL VOLUME 92.6 fL (80.0-94.0); MEAN CORPUSCULAR HEMOGLOBIN 32.1 pg (27.0-31.0); MEAN CORPUSCULAR HGB CONC 34.7 g/dL (33.0-37.0); MEAN PLATELET VOLUME 7.4 fL (7.2-11.7); MONO # 1.6 K/uL (0.0-0.8); MONO % 9.5 % (0.0-10.0); NEUT # 12.6 K/uL (1.8-7.0); NEUT % 72.4 % (50.0-75.0); RBC 3.03 Mil/uL (4.40-5.90); RED CELL DISTRIBUTION WIDTH 13.2 % (11.5-14.5); WHITE BLOOD COUNT 17.4 K/uL (4.8-10.8)
[2018-01-14 12:16] LABS: ALB/GLOB RATIO 0.9 (1.0-2.1); ALBUMIN 3.7 g/dL (3.5-5.0); CALCIUM 9.6 mg/dl (8.6-10.4)
--- NOTE | 2018-01-14 12:47 | CP.PCM.PN ---
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 Continue with Nephrovite 1 tab/day. PRBC as needed for anemia. not On FUNMI with HD as with concerns for RCC Continue with phos binders home dose, check phos level Continue with sensipar BP controlled with meds as ordered. Glycemic control, Dialysis consistent diet Further work up/management as per primary team Dose meds/antibiotics (if needed) for ESRD status. Avoid fleets enema/magnesium based laxatives. ID following. work up for fever ongoing Thanks for allowing me to participate in care of your patient. Will follow patient with you. Please call if any Qs Dr Tomas Cox Office: [phone] Chief Complaint; feels cold HPI: Pt is a 47 M with hx of ESRD on hemodialysis (TTS) via AVF, last dialysis Wednesday, chronic anemia, hyperphosphatemia, secondary hyperparathyroidism, HTN presented with complaints of chest pain, SOB and fever at home after dialysis session. renal consult for ESRD management now feels better. reports resolved SOB. denies chest pain pt on HD x 4 years, minimal urine output ROS: Cardiovascular: No chest pain now. Pulmonary: no shortness of breath Gastrointestinal: denies abdominal pain No nausea. No vomiting. reports lef lower back pain/flank pain better Genitourinary: anuric mostly. reports hx of hematuria and seeing urologist All other negative except as mentioned in HPI Physical Examination: General Appearance: Comfortable, in no acute respiratory distress, co-operative . obese Vitals reviewed and noted as below Head; Atraumatic, normocephalic ENT: no ulcers no thrush. Tongue is midline. Oropharynx: no rash or ulcers. EYES: Pupils are equal, round and reactive to light accommodation. Eye muscles and extraocular movement intact. Sclera is anicteric. Neck; supple no lymphadenopathy, no thyromegaly or bruit Lungs: Normal respiratory rate/effort. Breath sounds bilateral equal and clear Heart: Normal rate. s1s2 normal. No rub or gallop. Extremities: no edema. No varicose veins Neurological: Patient is alert, awake and oriented to person, place and time. No focal deficit. Strength bilateral appropriate and equal Skin: Warm and dry. Normal turgor. No rash. Palpitation: Normal elasticity for age Abdomen: Abdomen is soft. Bowel sounds +. There is no abdominal tenderness, no guarding/rigidity or organomegaly. Psych: normal insight and normal affect/mood MSK: no joint tenderness or swelling. Digits and nails normal, no deformity : kidney or bladder not palpable Access: left AVF Labs/imaging reviewed. Past medical history, past surgical history, family history, social history, allergy reviewed and noted as below Family Hx: 2 brother on dialysis rest Non contributory Objective - Vital Signs/Intake and Output Vital Signs (last 24 hours): Temp Pulse Resp BP Pulse Ox 99.1 F 87 20 116/76 99 01/14/18 09:11 01/14/18 09:11 01/14/18 09:11 01/14/18 09:11 01/14/18 09:11 Intake and Output: 01/14/18 01/14/18 06:59 18:59 Intake Total 150 Balance 150 - Medications Medications: Current Medications Acetaminophen (Tylenol 325mg Tab) 650 mg PO Q6 PRN PRN Reason: Pain Last Admin: 01/14/18 09:03 Dose: 650 mg Aspirin (Ecotrin) 81 mg PO DAILY [facility] Last Admin: 01/14/18 09:00 Dose: 81 mg Carvedilol (Coreg) 12.5 mg PO BID [facility] Last Admin: 01/14/18 09:00 Dose: 12.5 mg Cinacalcet (Sensipar) 60 mg PO DAILY [facility] Last Admin: 01/14/18 09:58 Dose: 60 mg Heparin Sodium (Porcine) (Heparin) 5,000 units SC Q8 [facility] Last Admin: 01/14/18 05:07 Dose: 5,000 units Ceftriaxone Sodium 1 gm/ (Sodium Chloride) 100 mls @ 100 mls/hr IVPB DAILY [facility] PRN Reason: Protocol Last Admin: 01/14/18 09:50 Dose: 100 mls/hr Vancomycin/Sodium Chloride (Vancomycin 1 Gm/Ns 200 Ml) 1 gm in 200 mls @ 166.7 mls/hr IVPB TTS [facility] PRN Reason: Protocol Stop: 01/18/18 10:01 Last Admin: 01/13/18 14:57 Dose: 166.7 mls/hr Ondansetron HCl (Zofran Inj) 4 mg IVP Q6 PRN PRN Reason: Nausea/Vomiting Last Admin: 01/12/18 14:53 Dose: 4 mg Sevelamer Carbonate (Renvela) 3,200 mg PO TIDCC [facility] Last Admin: 01/14/18 12:18 Dose: 3,200 mg Vitamin B Complex/Vit C/Folic Acid (Nephro-Kell) 1 tab PO DAILY [facility] Last Admin: 01/14/18 09:52 Dose: 1 tab - Labs Labs: 01/14/18 11:32 01/14/18 11:32
--- NOTE | 2018-01-14 13:28 | CARD ---
APPROVED REPORT EKG Measurement Heart [id number] CT [id number] <Conclusion> Normal sinus rhythm Left axis deviation Left bundle branch block Abnormal ECG
--- NOTE | 2018-01-14 14:39 | CP.PCM.PN ---
Subjective - Date & Time of Evaluation Date of Evaluation: 01/14/18 Time of Evaluation: 14:37 - Subjective Subjective: CHIEF COMPLAINTS TODAY : SPIKED TEMP 101F ROS. HEENT : N. Resp : No cough, wheezing ,pleuritic CP ,or hemoptysis Cardio : No anginal CP, PND, orthopnea, palpitation GI : No abd.pain, n/v ,diarrhea or GI bleeding . WELLNESS SPECIALIST : No headache, vertigo, focal deficit. Musculoskel : No joint swelling , Derm : No rash Psych : Normal affect. Ext : No swelling ,calf pain PE. Pt. is alert awake in no distress. V.S As noted in the chart Head ,ear nose,throat and eyes : Normal. Neck : Supple with normal carotids. Lungs: Clear air entry. Heart : S1 & S2 normal with S4. DANIELLE IN LLSB Abd : Soft non tender with normal bowel sounds. Neuro : Moves all ext. with no localized deficit. Ext : No edema with intact pulses.Non tender calves Derm : No rashes or decubitus ulcer. LABS/RADIOLOGY: CT ABD , R. RENAL MASS , LEFT : INFECTED CYST OR ABSCESS ASSESSMENT/PLAN : ADD CARVIEDOL IV AB PER ID UROLOGY EVAL Objective - Vital Signs/Intake and Output Vital Signs (last 24 hours): Temp Pulse Resp BP Pulse Ox 99.1 F 87 20 116/76 99 01/14/18 09:11 01/14/18 09:11 01/14/18 09:11 01/14/18 09:11 01/14/18 09:11 Intake and Output: 01/14/18 01/14/18 11:59 23:59 Intake Total 150 Balance 150 - Medications Medications: Current Medications Acetaminophen (Tylenol 325mg Tab) 650 mg PO Q6 PRN PRN Reason: Pain Last Admin: 01/14/18 09:03 Dose: 650 mg Aspirin (Ecotrin) 81 mg PO DAILY [facility] Last Admin: 01/14/18 09:00 Dose: 81 mg Carvedilol (Coreg) 12.5 mg PO BID [facility] Last Admin: 01/14/18 09:00 Dose: 12.5 mg Cinacalcet (Sensipar) 60 mg PO DAILY [facility] Last Admin: 01/14/18 09:58 Dose: 60 mg Heparin Sodium (Porcine) (Heparin) 5,000 units SC Q8 [facility] Last Admin: 01/14/18 13:49 Dose: 5,000 units Ceftriaxone Sodium 1 gm/ (Sodium Chloride) 100 mls @ 100 mls/hr IVPB DAILY [facility] PRN Reason: Protocol Last Admin: 01/14/18 09:50 Dose: 100 mls/hr Vancomycin/Sodium Chloride (Vancomycin 1 Gm/Ns 200 Ml) 1 gm in 200 mls @ 166.7 mls/hr IVPB TTS [facility] PRN Reason: Protocol Stop: 01/18/18 10:01 Last Admin: 01/13/18 14:57 Dose: 166.7 mls/hr Ondansetron HCl (Zofran Inj) 4 mg IVP Q6 PRN PRN Reason: Nausea/Vomiting Last Admin: 01/12/18 14:53 Dose: 4 mg Sevelamer Carbonate (Renvela) 3,200 mg PO TIDCC [facility] Last Admin: 01/14/18 12:18 Dose: 3,200 mg Vitamin B Complex/Vit C/Folic Acid (Nephro-Kell) 1 tab PO DAILY [facility] Last Admin: 01/14/18 09:52 Dose: 1 tab - Labs Labs: 01/14/18 11:32 01/14/18 11:32
--- NOTE | 2018-01-14 22:24 | CP.PCM.PN ---
Subjective - Date & Time of Evaluation Date of Evaluation: 01/14/18 Time of Evaluation: 22:24 - Subjective Subjective: CHIEF COMPLAINTS TODAY : SPIKED A FEVER OF 101.1 C/O LT. fLANK PAIN . S/P CT ABDOMEN AND PELVIS WITH BY MOUTH CONTRAST-NOTED 01/13/18 SOLID-APPEARING RT. RENAL MASS/LEFT RENAL CYSTIC MASS WITH INFLAMATORY STRANDING ? RENAL CELL CA VS INFECTED CYST VS ABSCESS. ROS. HEENT : N. Resp : No cough, wheezing ,pleuritic CP ,or hemoptysis Cardio : +VE CHEST PAIN ,NO PND, orthopnea, palpitation GI : LT. FLANK PAIN, NO n/v ,diarrhea or GI bleeding . 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 Musculoskel : No joint swelling , Derm : No rash Psych : Normal affect. Ext : No swelling ,calf pain PE. Pt. is alert awake in no distress. V.S As noted in the chart Head ,ear nose,throat and eyes : Normal. Neck : Supple with normal carotids. Lungs: Clear air entry. Heart : S1 & S2 normal with S4. No murmur. Abd : Soft non tender with normal bowel sounds. Neuro : Moves all ext. with no localized deficit. Ext : No edema with intact pulses.Non tender calves Derm : No rashes or decubitus ulcer. LABS/RADIOLOGY: REVIEWED WBC 17.4 RANDOM VANCO LEVEL 13.89 K. BLOOD CULTURES -VE TO DATE V/Q SCAN AND VENOUS DOPPLER NEG ECHO : LFEV 25%, APICAL BALLOONING SEPTAL WALL MOTION ABN Objective - Vital Signs/Intake and Output Vital Signs (last 24 hours): Temp Pulse Resp BP Pulse Ox 98.7 F 83 20 130/79 100 01/14/18 15:29 01/14/18 16:00 01/14/18 15:29 01/14/18 17:15 01/14/18 15:29 - Medications Medications: Current Medications Acetaminophen (Tylenol 325mg Tab) 650 mg PO Q6 PRN PRN Reason: Pain Last Admin: 01/14/18 09:03 Dose: 650 mg Aspirin (Ecotrin) 81 mg PO DAILY [facility] Last Admin: 01/14/18 09:00 Dose: 81 mg Carvedilol (Coreg) 12.5 mg PO BID [facility] Last Admin: 01/14/18 17:15 Dose: 12.5 mg Cinacalcet (Sensipar) 60 mg PO DAILY [facility] Last Admin: 01/14/18 09:58 Dose: 60 mg Ceftriaxone Sodium 1 gm/ (Sodium Chloride) 100 mls @ 100 mls/hr IVPB DAILY [facility] PRN Reason: Protocol Last Admin: 01/14/18 09:50 Dose: 100 mls/hr Vancomycin/Sodium Chloride (Vancomycin 1 Gm/Ns 200 Ml) 1 gm in 200 mls @ 166.7 mls/hr IVPB TTS [facility] PRN Reason: Protocol Stop: 01/18/18 10:01 Last Admin: 01/13/18 14:57 Dose: 166.7 mls/hr Ondansetron HCl (Zofran Inj) 4 mg IVP Q6 PRN PRN Reason: Nausea/Vomiting Last Admin: 01/12/18 14:53 Dose: 4 mg Sevelamer Carbonate (Renvela) 3,200 mg PO TIDCC [facility] Last Admin: 01/14/18 17:15 Dose: 3,200 mg Vitamin B Complex/Vit C/Folic Acid (Nephro-Kell) 1 tab PO DAILY [facility] Last Admin: 01/14/18 09:52 Dose: 1 tab - Labs Labs: 01/14/18 11:32 01/14/18 11:32 Assessment and Plan (1) Fever and chills Assessment & Plan: SOURCE OF FEVER MOST LIKELY ? RECENT HEMATURIA AND DYSURIA F/U UA / URINE CULTURES DC iv CEFTRIAXONE 1 G ONCE A DAY DAILY. ON IV ZOSYN 2.25 GRAMS iv PIGGYBACK EVERY 8 HOURLY 01/14/18. CONTINUE IV VANCOMYCIN 1GM POST HD TTS X 5 DOSES.STARTING 01/13/18 EVAL IN PROGRESS. PATIENT WILL NEED BIOPSY/ASPIRATION CYST ? IR TO EVALUATE FOR ASPIRATION /BX MASS RT KIDNEY. Status: Acute (2) Chest pain Status: Acute (3) SOB (shortness of breath) Status: Acute (4) ESRD (end stage renal disease) on dialysis Status: Acute
[2018-01-15] MEDS: Piperacill/Tazo 2.25gm in Dex 2.25 GM/50 ML BAG IVPB SCH ×3 (00:30→15:13)
[2018-01-15 01:02] LABS: SQUAMOUS EPITHIAL < 1 /hpf (0-5); URINE BACTERIA RARE (<OCC); URINE BILIRUBIN NEGATIVE (NEGATIVE); URINE BLOOD 1+ (NEGATIVE); URINE CLARITY Hazy (Clear); URINE COLOR Yellow (YELLOW); URINE GLUCOSE (UA) NORMAL (Normal); URINE LEUKOCYTE ESTERASE 3+ Leu/uL (Negative); URINE PROTEIN 2+ mg/dL (NEGATIVE); URINE UROBILINOGEN NORMAL mg/dL (0.2-1.0)
[2018-01-15 07:37] LABS: BASO # 0.1 K/uL (0.0-0.2); BASO % 0.4 % (0.0-2.0); EOS # 0.1 K/uL (0.0-0.7); EOS % 0.6 % (0.0-4.0); HEMOGLOBIN 8.9 g/dL (12.0-18.0); LYMPH # 2.1 K/uL (1.0-4.3); LYMPH % 14.3 % (20.0-40.0); MEAN CELL VOLUME 92.7 fL (80.0-94.0); MEAN CORPUSCULAR HEMOGLOBIN 31.3 pg (27.0-31.0); MEAN CORPUSCULAR HGB CONC 33.8 g/dL (33.0-37.0); MEAN PLATELET VOLUME 6.7 fL (7.2-11.7); MONO % 7.1 % (0.0-10.0); NEUT # 11.3 K/uL (1.8-7.0); NEUT % 77.6 % (50.0-75.0); RBC 2.85 Mil/uL (4.40-5.90); RED CELL DISTRIBUTION WIDTH 13.6 % (11.5-14.5); WHITE BLOOD COUNT 14.5 K/uL (4.8-10.8)
[2018-01-15 08:20] LABS: ALBUMIN 3.7 g/dL (3.5-5.0); CALCIUM 9.5 mg/dl (8.6-10.4)
[2018-01-15] MEDS: Vancomycin 1 gm/NS 200 ml 1 GM/200 ML BAG IVPB SCH ×2 (10:00→13:31)
[2018-01-15] MEDS: Multivitamin Vitamin B Complex (Nephro-Vite) Tab PO SCH ×2 (10:00→13:25)
--- NOTE | 2018-01-15 14:25 | CP.PCM.PN ---
Subjective - Date & Time of Evaluation Date of Evaluation: 01/15/18 Time of Evaluation: 14:23 - Subjective Subjective: CHIEF COMPLAINTS TODAY : TEMP DOWN NO HEMATURIA ROS. HEENT : N. Resp : No cough, wheezing ,pleuritic CP ,or hemoptysis Cardio : No anginal CP, PND, orthopnea, palpitation GI : No abd.pain, n/v ,diarrhea or GI bleeding . WOUND SPECIALIST : No headache, vertigo, focal deficit. Musculoskel : No joint swelling , Derm : No rash Psych : Normal affect. Ext : No swelling ,calf pain PE. Pt. is alert awake in no distress. V.S As noted in the chart Head ,ear nose,throat and eyes : Normal. Neck : Supple with normal carotids. Lungs: Clear air entry. Heart : S1 & S2 normal with S4. DANIELLE IN LLSB Abd : Soft non tender with normal bowel sounds. Neuro : Moves all ext. with no localized deficit. Ext : No edema with intact pulses.Non tender calves Derm : No rashes or decubitus ulcer. LABS/RADIOLOGY: CT ABD , R. RENAL MASS , LEFT : INFECTED CYST OR ABSCESS ASSESSMENT/PLAN : IV AB URO EVAL FOR MASS AWAITING RECORDS OF CARDIAC CATH FROM [place] Objective - Vital Signs/Intake and Output Vital Signs (last 24 hours): Temp Pulse Resp BP Pulse Ox 98.6 F 89 20 130/66 99 01/15/18 12:10 01/15/18 12:10 01/15/18 12:10 01/15/18 12:10 01/15/18 12:10 Intake and Output: 01/15/18 01/15/18 11:59 23:59 Intake Total 220 Output Total 50 Balance 170 - Medications Medications: Current Medications Acetaminophen (Tylenol 325mg Tab) 650 mg PO Q6 PRN PRN Reason: Pain Last Admin: 01/14/18 09:03 Dose: 650 mg Aspirin (Ecotrin) 81 mg PO DAILY [facility] Last Admin: 01/15/18 13:31 Dose: 81 mg Carvedilol (Coreg) 12.5 mg PO BID [facility] Last Admin: 01/15/18 10:07 Dose: Not Given Cinacalcet (Sensipar) 60 mg PO DAILY [facility] Last Admin: 01/15/18 13:25 Dose: 60 mg Vancomycin/Sodium Chloride (Vancomycin 1 Gm/Ns 200 Ml) 1 gm in 200 mls @ 166.7 mls/hr IVPB TTS [facility] PRN Reason: Protocol Stop: 01/18/18 10:01 Last Admin: 01/15/18 13:31 Dose: 166.7 mls/hr Piperacillin Sod/Tazobactam Sod (Zosyn 2.25 Gm Iv Premix) 2.25 gm in 50 mls @ 100 mls/hr IVPB Q8H [facility] PRN Reason: Protocol Last Admin: 01/15/18 06:46 Dose: 100 mls/hr Ondansetron HCl (Zofran Inj) 4 mg IVP Q6 PRN PRN Reason: Nausea/Vomiting Last Admin: 01/12/18 14:53 Dose: 4 mg Sevelamer Carbonate (Renvela) 3,200 mg PO TIDCC [facility] Last Admin: 01/15/18 13:24 Dose: 3,200 mg Vitamin B Complex/Vit C/Folic Acid (Nephro-Kell) 1 tab PO DAILY [facility] Last Admin: 01/15/18 13:25 Dose: 1 tab - Labs Labs: 01/15/18 07:27 01/15/18 07:27
--- NOTE | 2018-01-15 20:27 | CP.PCM.PN ---
Subjective - Date & Time of Evaluation Date of Evaluation: 01/15/18 Time of Evaluation: 20:27 - Subjective Subjective: CHIEF COMPLAINTS TODAY : SPIKED A FEVER OF 102.8 S/P HD TODAY C/O LT. fLANK PAIN . S/P CT ABDOMEN AND PELVIS WITH BY MOUTH CONTRAST-NOTED 01/13/18 SOLID-APPEARING RT. RENAL MASS/LEFT RENAL CYSTIC MASS WITH INFLAMATORY STRANDING ? RENAL CELL CA VS INFECTED CYST VS ABSCESS. ROS. HEENT : N. Resp : No cough, wheezing ,pleuritic CP ,or hemoptysis Cardio : +VE CHEST PAIN ,NO PND, orthopnea, palpitation GI : LT. FLANK PAIN, NO n/v ,diarrhea or GI bleeding . CORONER : No headache, vertigo, focal deficit. Musculoskel : No joint swelling , Derm : No rash Psych : Normal affect. Ext : No swelling ,calf pain PE. Pt. is alert awake in no distress. V.S As noted in the chart Head ,ear nose,throat and eyes : Normal. Neck : Supple with normal carotids. Lungs: Clear air entry. Heart : S1 & S2 normal with S4. No murmur. Abd : LT FLANK TENDERNESS with normal bowel sounds. Neuro : Moves all ext. with no localized deficit. Ext : No edema with intact pulses.Non tender calves Derm : No rashes or decubitus ulcer. LABS/RADIOLOGY: REVIEWED WBC 17.4--> 14.5 CXR -VE RANDOM VANCO LEVEL 13.89 K. BLOOD CULTURES -VE TO DATE V/Q SCAN AND VENOUS DOPPLER NEG ECHO : LFEV 25%, APICAL BALLOONING SEPTAL WALL MOTION ABN Objective - Vital Signs/Intake and Output Vital Signs (last 24 hours): Temp Pulse Resp BP Pulse Ox 98.8 F 92 H 20 106/70 98 01/15/18 20:01 01/15/18 20:01 01/15/18 20:01 01/15/18 20:01 01/15/18 20:01 Intake and Output: 01/15/18 01/16/18 18:59 06:59 Intake Total 250 Balance 250 - Medications Medications: Current Medications Acetaminophen (Tylenol 325mg Tab) 650 mg PO Q4 PRN PRN Reason: Pain and temp >100.4 Last Admin: 01/15/18 16:13 Dose: 650 mg Aspirin (Ecotrin) 81 mg PO DAILY [facility] Last Admin: 01/15/18 13:31 Dose: 81 mg Carvedilol (Coreg) 12.5 mg PO BID [facility] Last Admin: 01/15/18 17:18 Dose: Not Given Cinacalcet (Sensipar) 60 mg PO DAILY [facility] Last Admin: 01/15/18 13:25 Dose: 60 mg Vancomycin/Sodium Chloride (Vancomycin 1 Gm/Ns 200 Ml) 1 gm in 200 mls @ 166.7 mls/hr IVPB TTS [facility] PRN Reason: Protocol Stop: 01/18/18 10:01 Last Admin: 01/15/18 13:31 Dose: 166.7 mls/hr Metronidazole (Flagyl) 500 mg in 100 mls @ 100 mls/hr IVPB Q8 [facility] PRN Reason: Protocol Meropenem 500 mg/ Sodium (Chloride) 100 mls @ 100 mls/hr IVPB Q12H [facility] PRN Reason: Protocol Ondansetron HCl (Zofran Inj) 4 mg IVP Q6 PRN PRN Reason: Nausea/Vomiting Last Admin: 01/15/18 16:49 Dose: 4 mg Sevelamer Carbonate (Renvela) 3,200 mg PO TIDCC [facility] Last Admin: 01/15/18 17:17 Dose: 3,200 mg Vitamin B Complex/Vit C/Folic Acid (Nephro-Kell) 1 tab PO DAILY [facility] Last Admin: 01/15/18 13:25 Dose: 1 tab - Labs Labs: 01/15/18 07:27 01/15/18 07:27 Assessment and Plan (1) Fever and chills Assessment & Plan: SOURCE OF FEVER MOST LIKELY ? RECENT HEMATURIA AND DYSURIA/ RT RENALMASS/LT. KIDNEY CYST/ABSCESS F/U UA / URINE CULTURES DC IV ZOSYN 2.25 GRAMS iv PIGGYBACK EVERY 8 HOURLY 01/14/18. START IV MERREM 500MG IVPB [id number] 01/15/18 ADD IV FLAGYL 500MG IV Q 8HRLY 01/15/18. CONTINUE IV VANCOMYCIN 1GM POST HD TTS X 5 DOSES.STARTING 01/13/18 EVAL IN PROGRESS. PATIENT WILL NEED BIOPSY/ASPIRATION CYST ? IR TO EVALUATE FOR ASPIRATION /BX MASS RT KIDNEY. Status: Acute (2) Chest pain Status: Acute (3) SOB (shortness of breath) Status: Acute (4) ESRD (end stage renal disease) on dialysis Assessment & Plan: PT ON HD TTS. Status: Acute
[2018-01-15] MEDS ORDERED: Meropenem 500 MG in Sodium Chloride 0.9% 100 ML IVPB SCH (22:00)
[2018-01-15] MEDS: Meropenem 500 MG in Sodium Chloride 0.9% 100 ML IVPB SCH (22:06)
--- NOTE | 2018-01-15 22:39 | CP.PCM.PN ---
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 PRBC as needed for anemia. not On FUNMI with HD as with concerns for RCC Continue with phos binders, check phos level Continue with sensipar BP controlled with meds Dose meds/antibiotics (if needed) for ESRD status. Physical Examination: General Appearance: Comfortable, in no acute respiratory distress, co-operative . obese Vitals reviewed and noted as below Head; Atraumatic, normocephalic ENT: no ulcers no thrush. Tongue is midline. Oropharynx: no rash or ulcers. EYES: Eye muscles and extraocular movement intact. Sclera is anicteric. Neck; supple no JVD Lungs: Normal respiratory rate/effort. Breath sounds bilateral equal and clear Heart: Normal rate. s1s2 normal. No rub or gallop. Extremities: no edema. No varicose veins Neurological: Patient is alert, awake and oriented to person, place and time. No focal deficit. Strength bilateral appropriate and equal Skin: Warm and dry. Normal turgor. No rash. Palpitation: Normal elasticity for age Abdomen: Abdomen is soft. Bowel sounds +. There is no abdominal tenderness, no guarding/rigidity or organomegaly. Psych: normal insight and normal affect/mood MSK: no joint tenderness or swelling. Objective - Vital Signs/Intake and Output Vital Signs (last 24 hours): Temp Pulse Resp BP Pulse Ox 98.8 F 92 H 20 106/70 98 01/15/18 20:01 01/15/18 20:01 01/15/18 20:01 01/15/18 20:01 01/15/18 20:01 Intake and Output: 01/15/18 01/16/18 18:59 06:59 Intake Total 250 Balance 250 - Medications Medications: Current Medications Acetaminophen (Tylenol 325mg Tab) 650 mg PO Q4 PRN PRN Reason: Pain and temp >100.4 Last Admin: 01/15/18 16:13 Dose: 650 mg Aspirin (Ecotrin) 81 mg PO DAILY [facility] Last Admin: 01/15/18 13:31 Dose: 81 mg Carvedilol (Coreg) 12.5 mg PO BID [facility] Last Admin: 01/15/18 17:18 Dose: Not Given Cinacalcet (Sensipar) 60 mg PO DAILY [facility] Last Admin: 01/15/18 13:25 Dose: 60 mg Vancomycin/Sodium Chloride (Vancomycin 1 Gm/Ns 200 Ml) 1 gm in 200 mls @ 166.7 mls/hr IVPB TTS [facility] PRN Reason: Protocol Stop: 01/18/18 10:01 Last Admin: 01/15/18 13:31 Dose: 166.7 mls/hr Metronidazole (Flagyl) 500 mg in 100 mls @ 100 mls/hr IVPB Q8 [facility] PRN Reason: Protocol Meropenem 500 mg/ Sodium (Chloride) 100 mls @ 100 mls/hr IVPB Q24H [facility] PRN Reason: Protocol Last Admin: 01/15/18 22:06 Dose: 100 mls/hr Ondansetron HCl (Zofran Inj) 4 mg IVP Q6 PRN PRN Reason: Nausea/Vomiting Last Admin: 01/15/18 16:49 Dose: 4 mg Sevelamer Carbonate (Renvela) 3,200 mg PO TIDCC [facility] Last Admin: 01/15/18 17:17 Dose: 3,200 mg Vitamin B Complex/Vit C/Folic Acid (Nephro-Kell) 1 tab PO DAILY [facility] Last Admin: 01/15/18 13:25 Dose: 1 tab - Labs Labs: 01/15/18 07:27 01/15/18 07:27
[2018-01-15] MEDS: metroNIDAZOLE IV 500 mg/100 ml 500 MG/100 ML BAG IVPB SCH (23:00)
[2018-01-16] MEDS: metroNIDAZOLE IV 500 mg/100 ml 500 MG/100 ML BAG IVPB SCH ×3 (05:39→21:33)
[2018-01-16] MEDS: Multivitamin Vitamin B Complex (Nephro-Vite) Tab PO SCH (10:15)
--- NOTE | 2018-01-16 14:59 | CP.PCM.PN ---
Subjective - Date & Time of Evaluation Date of Evaluation: 01/16/18 Time of Evaluation: 14:58 - Subjective Subjective: SPIKING TEMP NO HEMATURIA CT GUIDED RENAL MASS BIOPSY CARDIAC CAth report INCOMPLETE Objective - Vital Signs/Intake and Output Vital Signs (last 24 hours): Temp Pulse Resp BP Pulse Ox 98.1 F 85 20 113/71 100 01/16/18 07:15 01/16/18 08:03 01/16/18 07:15 01/16/18 10:16 01/16/18 07:15 - Medications Medications: Current Medications Acetaminophen (Tylenol 325mg Tab) 650 mg PO Q4 PRN PRN Reason: Pain and temp >100.4 Last Admin: 01/15/18 16:13 Dose: 650 mg Aspirin (Ecotrin) 81 mg PO DAILY [facility] Last Admin: 01/16/18 10:16 Dose: 81 mg Carvedilol (Coreg) 12.5 mg PO BID [facility] Last Admin: 01/16/18 10:16 Dose: 12.5 mg Cinacalcet (Sensipar) 60 mg PO DAILY [facility] Last Admin: 01/16/18 10:20 Dose: 60 mg Vancomycin/Sodium Chloride (Vancomycin 1 Gm/Ns 200 Ml) 1 gm in 200 mls @ 166.7 mls/hr IVPB TTS [facility] PRN Reason: Protocol Stop: 01/18/18 10:01 Last Admin: 01/15/18 13:31 Dose: 166.7 mls/hr Metronidazole (Flagyl) 500 mg in 100 mls @ 100 mls/hr IVPB Q8 [facility] PRN Reason: Protocol Last Admin: 01/16/18 14:16 Dose: 100 mls/hr Meropenem 500 mg/ Sodium (Chloride) 100 mls @ 100 mls/hr IVPB Q24H [facility] PRN Reason: Protocol Last Admin: 01/15/18 22:06 Dose: 100 mls/hr Ondansetron HCl (Zofran Inj) 4 mg IVP Q6 PRN PRN Reason: Nausea/Vomiting Last Admin: 01/15/18 16:49 Dose: 4 mg Sevelamer Carbonate (Renvela) 3,200 mg PO T[facility]CC [facility] Last Admin: 01/16/18 12:42 Dose: 3,200 mg Vitamin B Complex/Vit C/Folic Acid (Nephro-Kell) 1 tab PO DAILY [facility] Last Admin: 01/16/18 10:15 Dose: 1 tab - Labs Labs: 01/15/18 07:27 01/15/18 07:27
[2018-01-16] MEDS: Meropenem 500 MG in Sodium Chloride 0.9% 100 ML IVPB SCH (20:10)
[2018-01-17] MEDS: metroNIDAZOLE IV 500 mg/100 ml 500 MG/100 ML BAG IVPB SCH ×3 (05:02→21:15)
[2018-01-17] MEDS: Multivitamin Vitamin B Complex (Nephro-Vite) Tab PO SCH (09:23)
--- NOTE | 2018-01-17 09:34 | PCM.IRP ---
History of Present Illness - History of Present Illness History of Present Illness: IR requested to evaluate Mr. Foster for renal mass biopsy and left renal cyst drainage. Kidneys are atrophic and complex cystic lesions are present. Recommend contrast enhanced study to determine if lesion in right kidney is renal cell cancer or hemorrhagic cyst. Complex cystic lesions left kidney could represent infected cyst, renal cell. Cyst is too small to drain. Cyst could be aspirated. Recommend continued abx and will plan aspiration. Objective - Vital Signs/Intake and Output Vital Signs (last 24 hours): Vital Signs - 24 hr 01/16/18 01/16/18 01/16/18 10:16 15:53 17:12 Temperature 99.3 F Pulse Rate 91 H Respiratory 20 Rate Blood Pressure 113/71 127/80 127/73 O2 Sat by Pulse 97 Oximetry 01/16/18 01/16/18 01/16/18 18:00 23:10 23:30 Temperature 98.7 F Pulse Rate 86 86 84 Respiratory 20 Rate Blood Pressure 102/66 O2 Sat by Pulse 95 Oximetry 01/17/18 01/17/18 01/17/18 03:30 07:25 09:23 Temperature 98.8 F Pulse Rate 81 86 Respiratory 20 Rate Blood Pressure 135/81 121/73 O2 Sat by Pulse 98 Oximetry Intake and Output (last 12 hours): Intake & Output 01/16/18 01/17/18 01/17/18 18:59 06:59 18:59 Intake Total 100 Balance 100 Weight 230 lb Intake: Intake, IV Amount 100 Left Wrist 100 - Medications Medications: Current Medications Acetaminophen (Tylenol 325mg Tab) 650 mg PO Q4 PRN PRN Reason: Pain and temp >100.4 Last Admin: 01/16/18 21:40 Dose: 650 mg Aspirin (Ecotrin) 81 mg PO DAILY [facility] Last Admin: 01/17/18 09:24 Dose: 81 mg Carvedilol (Coreg) 12.5 mg PO BID [facility] Last Admin: 01/17/18 09:23 Dose: 12.5 mg Cinacalcet (Sensipar) 60 mg PO DAILY [facility] Last Admin: 01/17/18 09:24 Dose: 60 mg Vancomycin/Sodium Chloride (Vancomycin 1 Gm/Ns 200 Ml) 1 gm in 200 mls @ 166.7 mls/hr IVPB TTS [facility] PRN Reason: Protocol Stop: 01/18/18 10:01 Last Admin: 01/15/18 13:31 Dose: 166.7 mls/hr Metronidazole (Flagyl) 500 mg in 100 mls @ 100 mls/hr IVPB Q8 [facility] PRN Reason: Protocol Last Admin: 01/17/18 05:02 Dose: 100 mls/hr Meropenem 500 mg/ Sodium (Chloride) 100 mls @ 100 mls/hr IVPB Q24H [facility] PRN Reason: Protocol Last Admin: 01/16/18 20:10 Dose: 100 mls/hr Ondansetron HCl (Zofran Inj) 4 mg IVP Q6 PRN PRN Reason: Nausea/Vomiting Last Admin: 01/15/18 16:49 Dose: 4 mg Sevelamer Carbonate (Renvela) 3,200 mg PO TIDCC [facility] Last Admin: 01/17/18 08:00 Dose: Not Given Vitamin B Complex/Vit C/Folic Acid (Nephro-Kell) 1 tab PO DAILY [facility] Last Admin: 01/17/18 09:23 Dose: 1 tab
--- NOTE | 2018-01-17 10:59 | CP.PCM.CON ---
Past Patient History - Past Medical History & Family History Past Medical History?: Yes - Past Social History Smoking Status: Never Smoked - CARDIAC Hx Congestive Heart Failure: Yes Hx Hypertension: Yes - PULMONARY Hx Respiratory Disorders: No - NEUROLOGICAL Hx Neurological Disorder: No - HEENT Hx HEENT Problems: No - RENAL Hx Renal Failure: Yes - ENDOCRINE/METABOLIC Hx Endocrine Disorders: No - HEMATOLOGICAL/ONCOLOGICAL Hx Blood Disorders: No - INTEGUMENTARY Hx Dermatological Problems: No - MUSCULOSKELETAL/RHEUMATOLOGICAL Hx Musculoskeletal Disorders: No - GASTROINTESTINAL Hx Gastrointestinal Disorders: No - GENITOURINARY/GYNECOLOGICAL Hx Genitourinary Disorders: No - PSYCHIATRIC Hx Substance Use: No - SURGICAL HISTORY Hx Surgeries: No - ANESTHESIA Hx Anesthesia: No Hx Anesthesia Reactions: No Hx Malignant Hyperthermia: No Has any member of the family had a problem w/ anesthesia?: No Meds Allergies/Adverse Reactions: Allergies Allergy/AdvReac Type Severity Reaction Status Date / Time No Known Allergies Allergy Verified 01/11/18 15:23 - Medications Medications: Current Medications Acetaminophen (Tylenol 325mg Tab) 650 mg PO Q4 PRN PRN Reason: Pain and temp >100.4 Last Admin: 01/16/18 21:40 Dose: 650 mg Aspirin (Ecotrin) 81 mg PO DAILY [facility] Last Admin: 01/17/18 09:24 Dose: 81 mg Carvedilol (Coreg) 12.5 mg PO BID [facility] Last Admin: 01/17/18 09:23 Dose: 12.5 mg Cinacalcet (Sensipar) 60 mg PO DAILY [facility] Last Admin: 01/17/18 09:24 Dose: 60 mg Vancomycin/Sodium Chloride (Vancomycin 1 Gm/Ns 200 Ml) 1 gm in 200 mls @ 166.7 mls/hr IVPB TTS [facility] PRN Reason: Protocol Stop: 01/18/18 10:01 Last Admin: 01/15/18 13:31 Dose: 166.7 mls/hr Metronidazole (Flagyl) 500 mg in 100 mls @ 100 mls/hr IVPB Q8 [facility] PRN Reason: Protocol Last Admin: 01/17/18 05:02 Dose: 100 mls/hr Meropenem 500 mg/ Sodium (Chloride) 100 mls @ 100 mls/hr IVPB Q24H [facility] PRN Reason: Protocol Last Admin: 01/16/18 20:10 Dose: 100 mls/hr Ondansetron HCl (Zofran Inj) 4 mg IVP Q6 PRN PRN Reason: Nausea/Vomiting Last Admin: 01/15/18 16:49 Dose: 4 mg Sevelamer Carbonate (Renvela) 3,200 mg PO TIDCC [facility] Last Admin: 01/17/18 08:00 Dose: Not Given Vitamin B Complex/Vit C/Folic Acid (Nephro-Kell) 1 tab PO DAILY [facility] Last Admin: 01/17/18 09:23 Dose: 1 tab Results - Vital Signs Recent Vital Signs: Last Vital Signs Temp 98.8 F 01/17/18 07:25 Pulse 86 01/17/18 07:25 Resp 20 01/17/18 07:25 BP 121/73 01/17/18 09:23 Pulse Ox 98 01/17/18 07:25 - Labs Result Diagrams: 01/15/18 07:27 01/15/18 07:27 Assessment & Plan - Assessment and Plan (Free Text) Assessment: Imp: Possible renal mass Renal failure Hypertension Hx of hematuria Hx of abdominal and flan pain Full note t/f YS - Date & Time Date: 01/17/18 Time: 10:30
--- NOTE | 2018-01-17 12:43 | CP.PCM.PN ---
Subjective - Date & Time of Evaluation Date of Evaluation: 01/17/18 Time of Evaluation: 12:42 - Subjective Subjective: CHIEF COMPLAINTS TODAY : TEMP DOWN NO HEMATURIA ROS. HEENT : N. Resp : No cough, wheezing ,pleuritic CP ,or hemoptysis Cardio : No anginal CP, PND, orthopnea, palpitation GI : No abd.pain, n/v ,diarrhea or GI bleeding . CASINO MANAGER : No headache, vertigo, focal deficit. Musculoskel : No joint swelling , Derm : No rash Psych : Normal affect. Ext : No swelling ,calf pain PE. Pt. is alert awake in no distress. V.S As noted in the chart Head ,ear nose,throat and eyes : Normal. Neck : Supple with normal carotids. Lungs: Clear air entry. Heart : S1 & S2 normal with S4. DANIELLE IN LLSB Abd : Soft non tender with normal bowel sounds. Neuro : Moves all ext. with no localized deficit. Ext : No edema with intact pulses.Non tender calves Derm : No rashes or decubitus ulcer. LABS/RADIOLOGY: CT ABD , R. RENAL MASS , LEFT : INFECTED CYST OR ABSCESS ASSESSMENT/PLAN : RENAL BIOPSY IV AB CATH REPORT Objective - Vital Signs/Intake and Output Vital Signs (last 24 hours): Temp Pulse Resp BP Pulse Ox 98.8 F 86 20 121/73 98 01/17/18 07:25 01/17/18 07:25 01/17/18 07:25 01/17/18 09:23 01/17/18 07:25 - Medications Medications: Current Medications Acetaminophen (Tylenol 325mg Tab) 650 mg PO Q4 PRN PRN Reason: Pain and temp >100.4 Last Admin: 01/16/18 21:40 Dose: 650 mg Aspirin (Ecotrin) 81 mg PO DAILY [facility] Last Admin: 01/17/18 09:24 Dose: 81 mg Carvedilol (Coreg) 12.5 mg PO BID [facility] Last Admin: 01/17/18 09:23 Dose: 12.5 mg Cinacalcet (Sensipar) 60 mg PO DAILY [facility] Last Admin: 01/17/18 09:24 Dose: 60 mg Vancomycin/Sodium Chloride (Vancomycin 1 Gm/Ns 200 Ml) 1 gm in 200 mls @ 166.7 mls/hr IVPB TTS [facility] PRN Reason: Protocol Stop: 01/18/18 10:01 Last Admin: 01/15/18 13:31 Dose: 166.7 mls/hr Metronidazole (Flagyl) 500 mg in 100 mls @ 100 mls/hr IVPB Q8 [facility] PRN Reason: Protocol Last Admin: 01/17/18 05:02 Dose: 100 mls/hr Meropenem 500 mg/ Sodium (Chloride) 100 mls @ 100 mls/hr IVPB Q24H [facility] PRN Reason: Protocol Last Admin: 01/16/18 20:10 Dose: 100 mls/hr Ondansetron HCl (Zofran Inj) 4 mg IVP Q6 PRN PRN Reason: Nausea/Vomiting Last Admin: 01/15/18 16:49 Dose: 4 mg Sevelamer Carbonate (Renvela) 3,200 mg PO TIDCC [facility] Last Admin: 01/17/18 12:24 Dose: Not Given Vitamin B Complex/Vit C/Folic Acid (Nephro-Kell) 1 tab PO DAILY [facility] Last Admin: 01/17/18 09:23 Dose: 1 tab - Labs Labs: 01/15/18 07:27 01/15/18 07:27
--- NOTE | 2018-01-17 15:07 | CP.PCM.PN ---
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 Continue with Nephrovite 1 tab/day. PRBC as needed for anemia. not On FUNMI with HD as with concerns for RCC Continue with phos binders home dose, check phos level Continue with sensipar BP controlled with meds as ordered. Glycemic control, Dialysis consistent diet Further work up/management as per primary team Dose meds/antibiotics (if needed) for ESRD status. Avoid fleets enema/magnesium based laxatives. ID, and IR following. work up for renal mass, cyst ongoing Thanks for allowing me to participate in care of your patient. Will follow patient with you. Please call if any Qs Dr Tomas Cox Office: [phone] HPI: Pt is a 47 M with hx of ESRD on hemodialysis (TTS) via AVF, last dialysis Wednesday, chronic anemia, hyperphosphatemia, secondary hyperparathyroidism, HTN presented with complaints of chest pain, SOB and fever at home after dialysis session. renal consult for ESRD management now feels better. reports resolved SOB. denies chest pain pt on HD x 4 years, minimal urine output ROS: Cardiovascular: No chest pain now. Pulmonary: no shortness of breath Gastrointestinal: denies abdominal pain No nausea. No vomiting. reports lef lower back pain/flank pain better Genitourinary: anuric mostly. All other negative except as mentioned in HPI. says BP was low during HD on wednesday Physical Examination: General Appearance: Comfortable, in no acute respiratory distress, co-operative . obese Vitals reviewed and noted as below Head; Atraumatic, normocephalic ENT: no ulcers no thrush. Tongue is midline. Oropharynx: no rash or ulcers. EYES: Pupils are equal, round and reactive to light accommodation. Eye muscles and extraocular movement intact. Sclera is anicteric. Neck; supple no lymphadenopathy, no thyromegaly or bruit Lungs: Normal respiratory rate/effort. Breath sounds bilateral equal and clear Heart: Normal rate. s1s2 normal. No rub or gallop. Extremities: no edema. No varicose veins Neurological: Patient is alert, awake and oriented to person, place and time. No focal deficit. Strength bilateral appropriate and equal Skin: Warm and dry. Normal turgor. No rash. Palpitation: Normal elasticity for age Abdomen: Abdomen is soft. Bowel sounds +. There is no abdominal tenderness, no guarding/rigidity or organomegaly. Psych: normal insight and normal affect/mood MSK: no joint tenderness or swelling. Digits and nails normal, no deformity : kidney or bladder not palpable Access: left AVF Labs/imaging reviewed. Past medical history, past surgical history, family history, social history, allergy reviewed and noted as below Family Hx: 2 brother on dialysis rest Non contributory Objective - Vital Signs/Intake and Output Vital Signs (last 24 hours): Temp Pulse Resp BP Pulse Ox 98.8 F 81 20 121/73 98 01/17/18 07:25 01/17/18 07:50 01/17/18 07:25 01/17/18 09:23 01/17/18 07:25 - Medications Medications: Current Medications Acetaminophen (Tylenol 325mg Tab) 650 mg PO Q4 PRN PRN Reason: Pain and temp >100.4 Last Admin: 01/16/18 21:40 Dose: 650 mg Aspirin (Ecotrin) 81 mg PO DAILY [facility] Last Admin: 01/17/18 09:24 Dose: 81 mg Carvedilol (Coreg) 12.5 mg PO BID [facility] Last Admin: 01/17/18 09:23 Dose: 12.5 mg Cinacalcet (Sensipar) 60 mg PO DAILY [facility] Last Admin: 01/17/18 09:24 Dose: 60 mg Vancomycin/Sodium Chloride (Vancomycin 1 Gm/Ns 200 Ml) 1 gm in 200 mls @ 166.7 mls/hr IVPB TTS [facility] PRN Reason: Protocol Stop: 01/18/18 10:01 Last Admin: 01/15/18 13:31 Dose: 166.7 mls/hr Metronidazole (Flagyl) 500 mg in 100 mls @ 100 mls/hr IVPB Q8 [facility] PRN Reason: Protocol Last Admin: 01/17/18 14:23 Dose: 100 mls/hr Meropenem 500 mg/ Sodium (Chloride) 100 mls @ 100 mls/hr IVPB Q24H [facility] PRN Reason: Protocol Last Admin: 01/16/18 20:10 Dose: 100 mls/hr Ondansetron HCl (Zofran Inj) 4 mg IVP Q6 PRN PRN Reason: Nausea/Vomiting Last Admin: 01/15/18 16:49 Dose: 4 mg Sevelamer Carbonate (Renvela) 3,200 mg PO TIDCC [facility] Last Admin: 01/17/18 14:23 Dose: 3,200 mg Vitamin B Complex/Vit C/Folic Acid (Nephro-Kell) 1 tab PO DAILY [facility] Last Admin: 01/17/18 09:23 Dose: 1 tab - Labs Labs: 01/15/18 07:27 01/15/18 07:27
[2018-01-17] MEDS ORDERED: Iodixanol 320 MG/ML 100 ML BOTTLE IV ONE (18:41)
[2018-01-17] MEDS: Meropenem 500 MG in Sodium Chloride 0.9% 100 ML IVPB SCH (21:15)
--- NOTE | 2018-01-17 21:50 | CP.PCM.PN ---
Subjective - Date & Time of Evaluation Date of Evaluation: 01/17/18 Time of Evaluation: 21:50 - Subjective Subjective: CHIEF COMPLAINTS TODAY : SPIKING FEVER OF 10I.6 C/O LT. fLANK PAIN EVALUATED BY IR -needs contrast enhanced study. seen by . S/P CT ABDOMEN AND PELVIS WITH BY MOUTH CONTRAST-NOTED 01/13/18 SOLID-APPEARING RT. RENAL MASS/LEFT RENAL CYSTIC MASS WITH INFLAMATORY STRANDING ? RENAL CELL CA VS INFECTED CYST VS ABSCESS. ROS. HEENT : N. Resp : No cough, wheezing ,pleuritic CP ,or hemoptysis Cardio : NO CHEST PAIN,,NO PND, orthopnea, palpitation GI : LT. FLANK PAIN, NO n/v ,diarrhea or GI bleeding . AUDITOR/QUALITY : No headache, vertigo, focal deficit. Musculoskel : No joint swelling , Derm : No rash Psych : Normal affect. Ext : No swelling ,calf pain PE. Pt. is alert awake in no distress. V.S As noted in the chart Head ,ear nose,throat and eyes : Normal. Neck : Supple with normal carotids. Lungs: Clear air entry. Heart : S1 & S2 normal with S4. No murmur. Abd : LT FLANK TENDERNESS with normal bowel sounds. Neuro : Moves all ext. with no localized deficit. Ext : No edema with intact pulses.Non tender calves Derm : No rashes or decubitus ulcer. LABS/RADIOLOGY: REVIEWED WBC 17.4--> 14.5 CXR -VE RANDOM VANCO LEVEL 13.89 K. BLOOD CULTURES -VE TO DATE V/Q SCAN AND VENOUS DOPPLER NEG ECHO : LFEV 25%, APICAL BALLOONING SEPTAL WALL MOTION ABN Objective - Vital Signs/Intake and Output Vital Signs (last 24 hours): Temp Pulse Resp BP Pulse Ox 101.6 F H 98 H 16 96/57 L 97 01/17/18 21:14 01/17/18 21:12 01/17/18 21:12 01/17/18 21:12 01/17/18 15:04 Intake and Output: 01/17/18 01/18/18 18:59 06:59 Intake Total 100 Balance 100 - Medications Medications: Current Medications Acetaminophen (Tylenol 325mg Tab) 650 mg PO Q4 PRN PRN Reason: Pain and temp >100.4 Last Admin: 01/17/18 21:14 Dose: 650 mg Aspirin (Ecotrin) 81 mg PO DAILY [facility] Last Admin: 01/17/18 09:24 Dose: 81 mg Carvedilol (Coreg) 12.5 mg PO BID [facility] Last Admin: 01/17/18 17:33 Dose: 12.5 mg Cinacalcet (Sensipar) 60 mg PO DAILY [facility] Last Admin: 01/17/18 09:24 Dose: 60 mg Vancomycin/Sodium Chloride (Vancomycin 1 Gm/Ns 200 Ml) 1 gm in 200 mls @ 166.7 mls/hr IVPB TTS [facility] PRN Reason: Protocol Stop: 01/18/18 10:01 Last Admin: 01/15/18 13:31 Dose: 166.7 mls/hr Metronidazole (Flagyl) 500 mg in 100 mls @ 100 mls/hr IVPB Q8 [facility] PRN Reason: Protocol Last Admin: 01/17/18 21:15 Dose: 100 mls/hr Meropenem 500 mg/ Sodium (Chloride) 100 mls @ 100 mls/hr IVPB Q24H [facility] PRN Reason: Protocol Last Admin: 01/17/18 21:15 Dose: 100 mls/hr Ondansetron HCl (Zofran Inj) 4 mg IVP Q6 PRN PRN Reason: Nausea/Vomiting Last Admin: 01/15/18 16:49 Dose: 4 mg Sevelamer Carbonate (Renvela) 3,200 mg PO TIDCC [facility] Last Admin: 01/17/18 17:33 Dose: 3,200 mg Vitamin B Complex/Vit C/Folic Acid (Nephro-Kell) 1 tab PO DAILY [facility] Last Admin: 01/17/18 09:23 Dose: 1 tab - Labs Labs: 01/15/18 07:27 01/15/18 07:27 Assessment and Plan (1) Fever and chills Assessment & Plan: BLOOD CULTURES X 2 SETS TODAY. CONTINUE ON IV MERREM 500MG IVPB [id number] 01/15/18 ON IV FLAGYL 500MG IV Q 8HRLY 01/15/18. CONTINUE IV VANCOMYCIN 1GM POST HD TTS X 5 DOSES.STARTING 01/13/18 EVAL IN PROGRESS. PATIENT WILL NEED BIOPSY/ASPIRATION CYST WILL REVIEW CONTRAST STUDY CT DONE TODAY Status: Acute (2) Chest pain Status: Acute (3) SOB (shortness of breath) Status: Acute (4) ESRD (end stage renal disease) on dialysis Assessment & Plan: PT ON HD TTS. Status: Acute
[2018-01-18] MEDS: metroNIDAZOLE IV 500 mg/100 ml 500 MG/100 ML BAG IVPB SCH ×3 (05:35→21:06)
[2018-01-18 07:08] LABS: BASO # 0.1 K/uL (0.0-0.2); BASO % 0.5 % (0.0-2.0); EOS # 0.2 K/uL (0.0-0.7); EOS % 1.1 % (0.0-4.0); HEMOGLOBIN 7.5 g/dL (12.0-18.0); LYMPH # 2.2 K/uL (1.0-4.3); LYMPH % 14.2 % (20.0-40.0); MEAN CELL VOLUME 93.6 fL (80.0-94.0); MEAN CORPUSCULAR HEMOGLOBIN 32.1 pg (27.0-31.0); MEAN CORPUSCULAR HGB CONC 34.4 g/dL (33.0-37.0); MEAN PLATELET VOLUME 6.5 fL (7.2-11.7); MONO # 1.1 K/uL (0.0-0.8); MONO % 7.1 % (0.0-10.0); NEUT # 11.7 K/uL (1.8-7.0); NEUT % 77.1 % (50.0-75.0); RBC 2.34 Mil/uL (4.40-5.90); RED CELL DISTRIBUTION WIDTH 13.8 % (11.5-14.5); WHITE BLOOD COUNT 15.2 K/uL (4.8-10.8)
[2018-01-18 08:22] LABS: ALB/GLOB RATIO 0.8 (1.0-2.1); ALBUMIN 2.2 g/dL (3.5-5.0); CALCIUM 6.3 mg/dl (8.6-10.4)
--- NOTE | 2018-01-18 09:10 | PCM.URO ---
Urology Progress Note - General General: No Complaints, Tolerating Diet - Subjective Abdominal Pain: No Flank Pain: Yes (less. L flanl) Nausea: No Vomiting: No Dysuria: No Hematuria: No (previous hx of hematuria) Dsypnea: No Fever & Chills: Yes (t=102 on 01/15. T=101 yesterday) - Objective Lab Studies: Reviewed (leukocytosis) Lab Results Last 24 Hours: Laboratory Results - last 24 hr 01/18/18 01/18/18 06:47 06:47 WBC 15.2 H RBC 2.34 L Hgb 7.5 L Hct 21.9 L MCV 93.6 MCH 32.1 H MCHC 34.4 RDW 13.8 Plt Count 397 MPV 6.5 L Neut % (Auto) 77.1 H Lymph % (Auto) 14.2 L [place] % (Auto) 7.1 Eos % (Auto) 1.1 Baso % (Auto) 0.5 Neut # (Auto) 11.7 H Lymph # (Auto) 2.2 [place] # (Auto) 1.1 H Eos # (Auto) 0.2 Baso # (Auto) 0.1 Sodium 141 Potassium 3.0 L Chloride 104 Carbon Dioxide 9 L* D Anion Gap 30 H BUN 52 H Creatinine 10.2 H* Est GFR ( Amer) 7 Est GFR (Non-Af Amer) 5 Random Glucose 85 Calcium 6.3 L Phosphorus 8.0 H Total Bilirubin 0.4 AST 13 L D ALT 93 H D Alkaline Phosphatase 46 Total Protein 4.7 L Albumin 2.2 L D Globulin 2.6 Albumin/Globulin Ratio 0.8 L Intake & Output: Intake & Output 01/17/18 01/18/18 01/18/18 18:59 06:59 18:59 Intake Total 100 500 Balance 100 500 Weight 234 lb Intake: Intake, IV Amount 100 Left Wrist 100 Oral 500 Vital Signs: Vital Signs - 24 hr 01/17/18 01/17/18 01/17/18 09:23 15:04 16:00 Temperature 97.9 F Pulse Rate 87 90 Respiratory 20 Rate Blood Pressure 121/73 106/66 O2 Sat by Pulse 97 Oximetry 01/17/18 01/17/18 01/17/18 17:33 21:12 21:14 Temperature 101.6 F H 101.6 F H Pulse Rate 98 H Respiratory 16 Rate Blood Pressure 110/60 96/57 L O2 Sat by Pulse Oximetry 01/17/18 01/17/18 01/18/18 23:25 23:30 03:30 Temperature 98.4 F Pulse Rate 82 85 79 Respiratory 20 Rate Blood Pressure 111/66 O2 Sat by Pulse 98 Oximetry 01/18/18 01/18/18 04:20 07:00 Temperature 98.6 F 98.3 F Pulse Rate 83 80 Respiratory 20 20 Rate Blood Pressure 114/68 116/66 O2 Sat by Pulse 99 100 Oximetry - Physical Exam Abdominal Exam: Soft, Non-Tender, Non-Distended Back: No CVA Tenderness (Imp: stable clinically Fever, leukocytosis - less ESRD. P: for dialysis today Antibiotic rx as per ID - meropenem, vancomycin, metronidaole Review new CT scan discussed w pt)
[2018-01-18] MEDS: Vancomycin 1 gm/NS 200 ml 1 GM/200 ML BAG IVPB SCH ×2 (10:00→15:51)
--- NOTE | 2018-01-18 11:06 | CT ---
PROCEDURE: CT Abdomen and Pelvis with contrast HISTORY: for kidney biopsy/ Dr. Edgar chandler COMPARISON: 01/13/2018 TECHNIQUE: Contrast dose: 100 mL Visipaque 320 Radiation dose: Total exam DLP = 113.81 mGy-cm. This CT exam was performed using one or more of the following dose reduction techniques: Automated exposure control, adjustment of the mA and/or kV according to patient size, and/or use of iterative reconstruction technique. FINDINGS: LOWER THORAX: Minimal linear scar/ atelectasis left lower lobe LIVER: Normal size, contour and attenuation. Several low-density lesions in lateral segment left hepatic lobe, largest 1.6 cm. Possibly cysts. No other mass. No biliary dilatation. Smooth contour. GALLBLADDER AND BILE DUCTS: Dependent sludge without definite calculi. No mural thickening. PANCREAS: Unremarkable. No gross lesion or ductal dilatation. SPLEEN: Unremarkable. ADRENALS: Unremarkable. No mass. KIDNEYS AND URETERS: Exophytic left renal cyst/cystic mass, 5.0 x 4.3 cm, with surrounding inflammatory change in the perinephric fat. There is enhancement of the periphery of this structure. There is also associated thickening of Gerota's fascia. Concerning for infected cyst or abscess. Doubt neoplasm. Several very small cortical cysts are scattered throughout both kidneys, largest 1.6 cm in the lower pole right kidney. No calculus. No hydronephrosis. Findings concerning for solid mass in right kidney on recent noncontrast CT examination of 01/13/2018 does not appear concerning for mass on this examination. However, correlation with ultrasound is advised. Alternatively, consider gadolinium enhanced magnetic resonance imaging. VASCULATURE: Unremarkable. No aortic aneurysm. BOWEL: Unremarkable. No obstruction. No gross mural thickening. APPENDIX: Status post appendectomy. PERITONEUM: Unremarkable. No free fluid. No free air. LYMPH NODES: Mild retroperitoneal lymphadenopathy. Largest 13 mm short axis. No pelvic lymphadenopathy. BLADDER: Nondistended REPRODUCTIVE: Unremarkable prostate BONES: No acute fracture. OTHER FINDINGS: None. IMPRESSION: 5 cm peripherally enhancing low-density exophytic mass left kidney concerning for infected cyst versus abscess. Surrounding inflammatory change with associated thickening of Gerota's fascia.No solid renal mass appreciated. Nevertheless, consider further evaluation with ultrasound examination as above. Minor findings as above.
--- NOTE | 2018-01-18 13:56 | CP.PCM.PN ---
Subjective - Date & Time of Evaluation Date of Evaluation: 01/18/18 Time of Evaluation: 13:55 - Subjective Subjective: CHIEF COMPLAINTS TODAY : SPIKING TEMP NO HEMATURIA ROS. HEENT : N. Resp : No cough, wheezing ,pleuritic CP ,or hemoptysis Cardio : No anginal CP, PND, orthopnea, palpitation GI : No abd.pain, n/v ,diarrhea or GI bleeding . 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 Musculoskel : No joint swelling , Derm : No rash Psych : Normal affect. Ext : No swelling ,calf pain PE. Pt. is alert awake in no distress. V.S As noted in the chart Head ,ear nose,throat and eyes : Normal. Neck : Supple with normal carotids. Lungs: Clear air entry. Heart : S1 & S2 normal with S4. DANIELLE IN LLSB Abd : Soft non tender with normal bowel sounds. Neuro : Moves all ext. with no localized deficit. Ext : No edema with intact pulses.Non tender calves Derm : No rashes or decubitus ulcer. LABS/RADIOLOGY: CT ABD , R. RENAL MASS , LEFT : INFECTED CYST OR ABSCESS ASSESSMENT/PLAN : RENAL BIOPSY IV AB CATH REPORT REPEAT CT WITH CONTRAST , SAME BEFORE NEED ASPIRATION OF MASS KIDNEY Objective - Vital Signs/Intake and Output Vital Signs (last 24 hours): Temp Pulse Resp BP Pulse Ox 98.4 F 92 H 18 127/80 99 01/18/18 13:51 01/18/18 13:51 01/18/18 13:51 01/18/18 13:51 01/18/18 13:51 Intake and Output: 01/18/18 01/18/18 11:59 23:59 Intake Total 0 325 Balance 0 325 - Medications Medications: Current Medications Acetaminophen (Tylenol 325mg Tab) 650 mg PO Q4 PRN PRN Reason: Pain and temp >100.4 Last Admin: 01/17/18 21:14 Dose: 650 mg Aspirin (Ecotrin) 81 mg PO DAILY [facility] Last Admin: 01/17/18 09:24 Dose: 81 mg Carvedilol (Coreg) 12.5 mg PO BID [facility] Last Admin: 01/18/18 10:00 Dose: Not Given Cinacalcet (Sensipar) 60 mg PO DAILY [facility] Last Admin: 01/17/18 09:24 Dose: 60 mg Metronidazole (Flagyl) 500 mg in 100 mls @ 100 mls/hr IVPB Q8 [facility] PRN Reason: Protocol Last Admin: 01/18/18 05:35 Dose: 100 mls/hr Meropenem 500 mg/ Sodium (Chloride) 100 mls @ 100 mls/hr IVPB Q24H [facility] PRN Reason: Protocol Last Admin: 01/17/18 21:15 Dose: 100 mls/hr Ondansetron HCl (Zofran Inj) 4 mg IVP Q6 PRN PRN Reason: Nausea/Vomiting Last Admin: 01/15/18 16:49 Dose: 4 mg Sevelamer Carbonate (Renvela) 3,200 mg PO TIDCC [facility] Last Admin: 01/18/18 08:16 Dose: 3,200 mg Vitamin B Complex/Vit C/Folic Acid (Nephro-Kell) 1 tab PO DAILY [facility] Last Admin: 01/17/18 09:23 Dose: 1 tab - Labs Labs: 01/18/18 06:47 01/18/18 06:47
[2018-01-18] MEDS: Multivitamin Vitamin B Complex (Nephro-Vite) Tab PO SCH (14:07)
--- NOTE | 2018-01-18 15:39 | CP.PCM.PN ---
Subjective - Date & Time of Evaluation Date of Evaluation: 01/18/18 Time of Evaluation: 15:37 - Subjective Subjective: Nephrology Consultation Note: Assessment: Stable left renal infected cyst/abscess End stage renal disease (N18.6) dependence on hemodialysis (Z99.2) (TTS) via AVF Anemia (D64.9), Hyperphosphatemia (E83.39), Secondary Hyperparathyroidism (E21.1 ), HTN (I12.0) Obesity severe systolic CHF (LVEF 20-25%) with severely dilated LV Plan: Will plan for HD today as ordered. Continue with Nephrovite 1 tab/day. PRBC as needed for anemia. 1 unit PRBC 01/18/18. will resume epogen as CT with IV contrast without evidence of solid renal mass Continue with phos binders home dose, check phos level Continue with sensipar BP controlled with meds as ordered. Glycemic control, Dialysis consistent diet Further work up/management as per primary team Dose meds/antibiotics (if needed) for ESRD status. Avoid fleets enema/magnesium based laxatives. ID, and IR following. work up for renal mass, cyst ongoing todays labs showed low bicarb, high phos, low ca and low K, ? lab error, repeat today evening. normal lactic acid. Thanks for allowing me to participate in care of your patient. Will follow patient with you. Please call if any Qs. d/w team Dr Tomas Cox Office: [phone] HPI: Pt is a 47 M with hx of ESRD on hemodialysis (TTS) via AVF, last dialysis Wednesday, chronic anemia, hyperphosphatemia, secondary hyperparathyroidism, HTN presented with complaints of chest pain, SOB and fever at home after dialysis session. renal consult for ESRD management now feels better. reports resolved SOB. denies chest pain pt on HD x 4 years, minimal urine output ROS: Cardiovascular: No chest pain now. Pulmonary: no shortness of breath Gastrointestinal: denies abdominal pain No nausea. No vomiting. reports lef lower back pain/flank pain better Genitourinary: anuric mostly. All other negative except as mentioned in HPI. says BP was low during HD on wednesday Physical Examination: seen on HD General Appearance: Comfortable, in no acute respiratory distress, co-operative . obese Vitals reviewed and noted as below Head; Atraumatic, normocephalic ENT: no ulcers no thrush. Tongue is midline. Oropharynx: no rash or ulcers. EYES: Pupils are equal, round and reactive to light accommodation. Eye muscles and extraocular movement intact. Sclera is anicteric. Neck; supple no lymphadenopathy, no thyromegaly or bruit Lungs: Normal respiratory rate/effort. Breath sounds bilateral equal and clear Heart: Normal rate. s1s2 normal. No rub or gallop. Extremities: no edema. No varicose veins Neurological: Patient is alert, awake and oriented to person, place and time. No focal deficit. Strength bilateral appropriate and equal Skin: Warm and dry. Normal turgor. No rash. Palpitation: Normal elasticity for age Abdomen: Abdomen is soft. Bowel sounds +. There is no abdominal tenderness, no guarding/rigidity or organomegaly. Psych: normal insight and normal affect/mood MSK: no joint tenderness or swelling. Digits and nails normal, no deformity : kidney or bladder not palpable Access: left AVF Labs/imaging reviewed. Past medical history, past surgical history, family history, social history, allergy reviewed and noted as below Family Hx: 2 brother on dialysis rest Non contributory Objective - Vital Signs/Intake and Output Vital Signs (last 24 hours): Temp Pulse Resp BP Pulse Ox 99 F 66 18 123/66 99 01/18/18 15:35 01/18/18 15:35 01/18/18 15:35 01/18/18 15:35 01/18/18 15:35 Intake and Output: 01/18/18 01/18/18 06:59 18:59 Intake Total 500 825 Balance 500 825 - Medications Medications: Current Medications Acetaminophen (Tylenol 325mg Tab) 650 mg PO Q4 PRN PRN Reason: Pain and temp >100.4 Last Admin: 01/17/18 21:14 Dose: 650 mg Aspirin (Ecotrin) 81 mg PO DAILY [facility] Last Admin: 01/18/18 14:06 Dose: Not Given Carvedilol (Coreg) 12.5 mg PO BID [facility] Last Admin: 01/18/18 10:00 Dose: Not Given Cinacalcet (Sensipar) 60 mg PO DAILY [facility] Last Admin: 01/18/18 14:02 Dose: 60 mg Epoetin Ramirez (Procrit) 10,000 unit IV TTS [facility] Metronidazole (Flagyl) 500 mg in 100 mls @ 100 mls/hr IVPB Q8 [facility] PRN Reason: Protocol Last Admin: 01/18/18 14:07 Dose: 100 mls/hr Meropenem 500 mg/ Sodium (Chloride) 100 mls @ 100 mls/hr IVPB Q24H [facility] PRN Reason: Protocol Last Admin: 01/17/18 21:15 Dose: 100 mls/hr Ondansetron HCl (Zofran Inj) 4 mg IVP Q6 PRN PRN Reason: Nausea/Vomiting Last Admin: 01/15/18 16:49 Dose: 4 mg Sevelamer Carbonate (Renvela) 3,200 mg PO TIDCC [facility] Last Admin: 01/18/18 14:01 Dose: 3,200 mg Vitamin B Complex/Vit C/Folic Acid (Nephro-Kell) 1 tab PO DAILY [facility] Last Admin: 01/18/18 14:07 Dose: 1 tab - Labs Labs: 01/18/18 06:47 01/18/18 06:47
--- NOTE | 2018-01-18 16:50 | CON ---
DATE: UROLOGY CONSULTATION REQUESTED BY: Almita Ortiz MD Urology consultation filled by Dr. Liana Tafoya. REASON FOR CONSULTATION: Renal mass. HISTORY OF PRESENT ILLNESS: The patient is a 47-year-old male with renal mass. The patient was admitted with abdominal pain and flank pain. The patient presented to emergency room. He is admitted for evaluation and therapy. The patient has significant past medical history. The patient has history of hypertension. He has history of renal failure, requiring hemodialysis. The patient reports he has been on hemodialysis for the past 4 years. The patient reports that last month he had one episode of hematuria. There has been no recent fever or rigors. The patient voids with fair urinary stream. He reports he voids only small amounts. He reports that he voids approximately one ounce per day. He voids once or twice per day. There is no history of urolithiasis. No recent fever or rigors. The patient reported previous nausea. No chest pain. No history of diabetes. The patient lives with his . 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 The patient reports that he is feeling better since admission. The patient has been treated for possible infection. The patient had a CT scan performed, which revealed possible renal mass. PHYSICAL EXAMINATION: GENERAL: The patient is a well-developed, well-nourished male, appearing his stated age. The patient is awake and alert. ABDOMEN: Soft, nontender, nondistended. No mass or organomegaly. BACK: No CVA tenderness. LABORATORY DATA: Reviewed. Renal failure is noted. CAT scan is reviewed as well. The CAT scan and renal ultrasound were reviewed. The x-rays reported to show a right upper pole renal mass. There was also a somewhat cystic structure involving the left kidney. However, this is not a simple cyst as there is some thick-walled nature to the mass. I am uncertain if there is a right renal mass at all. The possibility of tumors exist. However, the findings are not complete and well defined due to the absence of IV contrast for the study. RECOMMENDATIONS AND PLAN: A repeat CT scan without and with IV contrast, this study will better define the vascularity in the nature of a renal mass or masses. Further therapy to follow according to the patient's clinical course. Thank you for recommending the patient for Urology consultation. Malden MD Lottie cc: Almita Ortiz MD
[2018-01-18 19:53] LABS: BASO # 0.1 K/uL (0.0-0.2); BASO % 0.5 % (0.0-2.0); EOS # 0.2 K/uL (0.0-0.7); LYMPH # 2.5 K/uL (1.0-4.3); LYMPH % 14.8 % (20.0-40.0); MEAN CELL VOLUME 92.5 fL (80.0-94.0); MEAN CORPUSCULAR HEMOGLOBIN 31.9 pg (27.0-31.0); MEAN CORPUSCULAR HGB CONC 34.5 g/dL (33.0-37.0); MEAN PLATELET VOLUME 6.6 fL (7.2-11.7); MONO # 0.9 K/uL (0.0-0.8); MONO % 5.3 % (0.0-10.0); NEUT # 13.4 K/uL (1.8-7.0); NEUT % 78.4 % (50.0-75.0); RBC 3.11 Mil/uL (4.40-5.90); RED CELL DISTRIBUTION WIDTH 13.6 % (11.5-14.5)
[2018-01-18 19:57] LABS: HEMOGLOBIN 9.9 g/dL (12.0-18.0)
[2018-01-18 20:05] LABS: CALCIUM 9.1 mg/dl (8.6-10.4)
[2018-01-18 20:08] LABS: INR 1.4; PROTHROMBIN TIME 16.1 SECONDS (9.7-12.2)
[2018-01-18] MEDS: Meropenem 500 MG in Sodium Chloride 0.9% 100 ML IVPB SCH (21:06)
--- NOTE | 2018-01-18 21:55 | CP.PCM.PN ---
Subjective - Date & Time of Evaluation Date of Evaluation: 01/18/18 Time of Evaluation: 21:55 - Subjective Subjective: CHIEF COMPLAINTS TODAY : tmax 100.8. C/O LT. fLANK PAIN Contrast enhanced CT ABD/PELVIS study NOTED seen by . CASE DISCUSSED WITH SARITHA VIEIRA. PATIENT FOR CT GUIDED IR ASPIRATION CYST IN AM . ROS. HEENT : N. Resp : No cough, wheezing ,pleuritic CP ,or hemoptysis Cardio : NO CHEST PAIN,,NO PND, orthopnea, palpitation GI : LT. FLANK PAIN, NO n/v ,diarrhea or GI bleeding . 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 Musculoskel : No joint swelling , Derm : No rash Psych : Normal affect. Ext : No swelling ,calf pain PE. Pt. is alert awake in no distress. V.S As noted in the chart Head ,ear nose,throat and eyes : Normal. Neck : Supple with normal carotids. Lungs: Clear air entry. Heart : S1 & S2 normal with S4. No murmur. Abd : LT FLANK TENDERNESS with normal bowel sounds. Neuro : Moves all ext. with no localized deficit. Ext : No edema with intact pulses.Non tender calves Derm : No rashes or decubitus ulcer. LABS/RADIOLOGY: REVIEWED CXR -VE RANDOM VANCO LEVEL 13.89 K. BLOOD CULTURES -VE TO DATE V/Q SCAN AND VENOUS DOPPLER NEG ECHO : LFEV 25%, APICAL BALLOONING SEPTAL WALL MOTION ABN Objective - Vital Signs/Intake and Output Vital Signs (last 24 hours): Temp Pulse Resp BP Pulse Ox 98.8 F 98 H 16 108/66 99 01/18/18 19:33 01/18/18 19:33 01/18/18 19:33 01/18/18 19:33 01/18/18 15:35 Intake and Output: 01/18/18 01/19/18 18:59 06:59 Intake Total 825 Balance 825 - Medications Medications: Current Medications Acetaminophen (Tylenol 325mg Tab) 650 mg PO Q4 PRN PRN Reason: Pain and temp >100.4 Last Admin: 01/18/18 17:13 Dose: 650 mg Aspirin (Ecotrin) 81 mg PO DAILY [facility] Last Admin: 01/18/18 14:06 Dose: Not Given Carvedilol (Coreg) 12.5 mg PO BID [facility] Last Admin: 01/18/18 17:13 Dose: 12.5 mg Cinacalcet (Sensipar) 60 mg PO DAILY [facility] Last Admin: 01/18/18 14:02 Dose: 60 mg Epoetin Ramirez (Procrit) 10,000 unit IV TTS [facility] Metronidazole (Flagyl) 500 mg in 100 mls @ 100 mls/hr IVPB Q8 [facility] PRN Reason: Protocol Last Admin: 01/18/18 21:06 Dose: 100 mls/hr Meropenem 500 mg/ Sodium (Chloride) 100 mls @ 100 mls/hr IVPB Q24H [facility] PRN Reason: Protocol Last Admin: 01/18/18 21:06 Dose: 100 mls/hr Ondansetron HCl (Zofran Inj) 4 mg IVP Q6 PRN PRN Reason: Nausea/Vomiting Last Admin: 01/15/18 16:49 Dose: 4 mg Sevelamer Carbonate (Renvela) 3,200 mg PO TIDCC [facility] Last Admin: 01/18/18 17:13 Dose: 3,200 mg Vitamin B Complex/Vit C/Folic Acid (Nephro-Kell) 1 tab PO DAILY [facility] Last Admin: 01/18/18 14:07 Dose: 1 tab - Labs Labs: 01/18/18 19:46 01/18/18 19:46 PT 16.1 SECONDS (9.7-12.2) H 01/18/18 19:46 INR 1.4 01/18/18 19:46 APTT 33 SECONDS (21-34) 01/18/18 19:46 Assessment and Plan (1) Fever and chills Assessment & Plan: CONTINUE ON IV MERREM 500MG IVPB [id number] 01/15/18 ON IV FLAGYL 500MG IV Q 8HRLY 01/15/18. CONTINUE IV VANCOMYCIN 1GM POST HD TTS X 5 DOSES.STARTING 01/13/18 EVAL NOTED PATIENT FOR IR CT -GUIDED ASPIRATION CYST /VS ABSCESS IN AM . DISCUSSED WITH FAMILY ABOUT REPEAT cat SCAN WITH CONTRAST FINDINGS. Status: Acute (2) Bilateral renal cysts Assessment & Plan: repeat CT scan of the abdomen and pelvis with contrast noted. Bilateral renal cysts/infected versus abscess. Patient for CT-guided aspiration left renal cysts and appropriate cultures for bacteria, fungal and AFB smear and culture/and cytology. Status: Acute (3) Chest pain Status: Acute (4) SOB (shortness of breath) Status: Acute (5) ESRD (end stage renal disease) on dialysis Assessment & Plan: hemodialysis TTS. Status: Acute
[2018-01-19] MEDS: metroNIDAZOLE IV 500 mg/100 ml 500 MG/100 ML BAG IVPB SCH ×3 (05:15→22:27)
[2018-01-19] MEDS: Multivitamin Vitamin B Complex (Nephro-Vite) Tab PO SCH (09:47)
[2018-01-19] MEDS ORDERED: Absorbable Gelatin Sponge Size 12-7 ONE (11:27)
[2018-01-19] MEDS ORDERED: Midazolam 2 MG/2 ML VIAL ONE (11:34)
--- NOTE | 2018-01-19 11:52 | PCM.SURG1 ---
Surgeon's Initial Post Op Note - Surgeon's Notes Surgeon: Daniel Pennington MD Real Estate Utilization Officer: NONE Type of Anesthesia: IV Sedation Pre-Operative Diagnosis: Left renal cystic mass Operative Findings: US showed complex cystic left renal mass. Post-Operative Diagnosis: Left renal cystic mass Operation Performed: US guided aspiration Specimen/Specimens Removed: 10 cc of viscous dark bloody drainage. Estimated Blood Loss: EBL {In ML}: 0 Blood Products Given: N/A Drains Used: No Drains Post-Op Condition: Fair Date of Surgery/Procedure: 01/19/18 Time of Surgery/Procedure: 11:45
--- NOTE | 2018-01-19 12:30 | PCM.URO ---
Urology Progress Note - General General: No Complaints, Tolerating Diet - Subjective Abdominal Pain: No Flank Pain: No Nausea: No Vomiting: No Hematuria: No Chest Pain: No Fever & Chills: No - Objective Lab Results Last 24 Hours: Laboratory Results - last 24 hr 01/18/18 01/18/18 01/18/18 19:46 19:46 19:46 WBC 17.0 H RBC 3.11 L Hgb 9.9 L D Hct 28.8 L MCV 92.5 MCH 31.9 H MCHC 34.5 RDW 13.6 Plt Count 516 H D MPV 6.6 L Neut % (Auto) 78.4 H Lymph % (Auto) 14.8 L [place] % (Auto) 5.3 Eos % (Auto) 1.0 Baso % (Auto) 0.5 Neut # (Auto) 13.4 H Lymph # (Auto) 2.5 [place] # (Auto) 0.9 H Eos # (Auto) 0.2 Baso # (Auto) 0.1 PT 16.1 H INR 1.4 APTT 33 Sodium 145 Potassium 4.0 Chloride 96 L Carbon Dioxide 34 H Anion Gap 18 BUN 39 H Creatinine 9.5 H* Est GFR ( Amer) 7 Est GFR (Non-Af Amer) 6 Random Glucose 137 H Calcium 9.1 Phosphorus 2.7 Magnesium 2.2 Intake & Output: Intake & Output 01/18/18 01/19/18 01/19/18 18:59 06:59 18:59 Intake Total 825 500 Balance 825 500 Intake: Intake, IV Amount 100 Left Wrist 100 Oral 400 500 Blood Product 325 Red Blood Cells Cpd As1 325 Lr Unit [id number] Other: # Voids Urine, Voided 1 1 # Bowel Movements 3 Vital Signs: Vital Signs - 24 hr 01/18/18 01/18/18 01/18/18 12:40 12:57 13:10 Temperature 98.1 F 98 F Pulse Rate 82 80 Pulse Rate [ 80 Left Brachial] Respiratory 19 17 Rate Blood Pressure 119/78 140/76 Blood Pressure 130/70 119/74 [Left Arm] O2 Sat by Pulse 100 Oximetry 01/18/18 01/18/18 01/18/18 13:51 15:35 16:00 Temperature 98.4 F 99 F Pulse Rate 92 H 99 H 98 H Pulse Rate [ Left Brachial] Respiratory 18 18 Rate Blood Pressure 127/80 123/66 Blood Pressure [Left Arm] O2 Sat by Pulse 99 99 Oximetry 01/18/18 01/18/18 01/18/18 17:13 18:13 18:46 Temperature 100.4 F H 99.1 F 99.1 F Pulse Rate 105 H Pulse Rate [ Left Brachial] Respiratory Rate Blood Pressure 121/78 Blood Pressure [Left Arm] O2 Sat by Pulse Oximetry 01/18/18 01/18/18 01/18/18 19:33 23:15 23:30 Temperature 98.8 F 99.4 F Pulse Rate 98 H 84 85 Pulse Rate [ Left Brachial] Respiratory 16 20 Rate Blood Pressure 108/66 109/62 Blood Pressure [Left Arm] O2 Sat by Pulse 100 Oximetry 01/19/18 01/19/18 01/19/18 03:10 03:23 04:15 Temperature 99.3 F 100.1 F H Pulse Rate 100 H 94 H 93 H Pulse Rate [ Left Brachial] Respiratory 20 20 Rate Blood Pressure 118/79 124/81 Blood Pressure [Left Arm] O2 Sat by Pulse 95 98 Oximetry 01/19/18 01/19/18 01/19/18 06:50 07:00 09:17 Temperature 98.5 F 98.6 F Pulse Rate 94 H 86 Pulse Rate [ Left Brachial] Respiratory 20 20 Rate Blood Pressure 122/77 129/79 142/82 Blood Pressure [Left Arm] O2 Sat by Pulse 97 100 Oximetry 01/19/18 12:10 Temperature 98.0 F Pulse Rate 79 Pulse Rate [ Left Brachial] Respiratory 16 Rate Blood Pressure 127/69 Blood Pressure [Left Arm] O2 Sat by Pulse Oximetry - Physical Exam Abdominal Exam: Soft, Non-Tender, Non-Distended Back: No CVA Tenderness (dressing dry and intact on L flank) - Plan Additional Information: Imp: stable post cyst aspiration by IR. renal failure. Hx of hematuria, for which patient may need cystoscopy. - Date & Time of Note Date: 01/19/18 Time: 12:37
--- NOTE | 2018-01-19 13:51 | US ---
PROCEDURE: Date of procedure: 01/19/2018 Procedure: Ultrasound-guided left renal cyst aspiration Medication: 8 cc 2% Lidocaine, patient received IV sedation by the anesthesiologist along with physiologic monitoring. HISTORY: Complex left renal cystic mass TECHNIQUE: Following informed consent and procedure time-out, the patient was placed prone on the interventional table and a limited ultrasound showed complex left renal cystic mass which was seen on previous CT scan. The patient left back was prepped and draped in the usual sterile fashion. After patient sedated by the anesthesiologist and the skin anesthetized with lidocaine, a 5 [place] drainage catheter was advanced under direct ultrasound guidance into the cystic mass. 10 cubic centimeters of viscous serosanguineous fluid was aspirated and sent for cytology along with culture. There were no immediate complications. IMPRESSION: Ultrasound-guided left renal cystic mass aspiration.
--- NOTE | 2018-01-19 13:52 | CP.PCM.PN ---
Subjective - Date & Time of Evaluation Date of Evaluation: 01/19/18 Time of Evaluation: 13:49 - Subjective Subjective: CHIEF COMPLAINTS TODAY : SPIKING TEMP NO HEMATURIA ROS. HEENT : N. Resp : No cough, wheezing ,pleuritic CP ,or hemoptysis Cardio : No anginal CP, PND, orthopnea, palpitation GI : No abd.pain, n/v ,diarrhea or GI bleeding . 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 Musculoskel : No joint swelling , Derm : No rash Psych : Normal affect. Ext : No swelling ,calf pain PE. Pt. is alert awake in no distress. V.S As noted in the chart Head ,ear nose,throat and eyes : Normal. Neck : Supple with normal carotids. Lungs: Clear air entry. Heart : S1 & S2 normal with S4. DANIELLE IN LLSB Abd : Soft non tender with normal bowel sounds. Neuro : Moves all ext. with no localized deficit. Ext : No edema with intact pulses.Non tender calves Derm : No rashes or decubitus ulcer. LABS/RADIOLOGY: ASSESSMENT/PLAN : ASPIRATED 10 CC DARK BROWN BLOODY FLUID FROM L CYST RECURRENT S TACHY WITH LBBB, D/C CRVEDIOL AND START B BRUNO Objective - Vital Signs/Intake and Output Vital Signs (last 24 hours): Temp Pulse Resp BP Pulse Ox 98.0 F 79 16 127/69 100 01/19/18 12:10 01/19/18 12:10 01/19/18 12:10 01/19/18 12:10 01/19/18 07:00 - Medications Medications: Current Medications Acetaminophen (Tylenol 325mg Tab) 650 mg PO Q4 PRN PRN Reason: Pain and temp >100.4 Last Admin: 01/18/18 17:13 Dose: 650 mg Aspirin (Ecotrin) 81 mg PO DAILY [facility] Last Admin: 01/19/18 09:11 Dose: Not Given Carvedilol (Coreg) 12.5 mg PO BID [facility] Last Admin: 01/19/18 09:17 Dose: 12.5 mg Cinacalcet (Sensipar) 60 mg PO DAILY [facility] Last Admin: 01/19/18 09:17 Dose: 60 mg Epoetin Ramirez (Procrit) 10,000 unit IV TTS [facility] Metronidazole (Flagyl) 500 mg in 100 mls @ 100 mls/hr IVPB Q8 [facility] PRN Reason: Protocol Last Admin: 01/19/18 13:49 Dose: 100 mls/hr Meropenem 500 mg/ Sodium (Chloride) 100 mls @ 100 mls/hr IVPB Q24H [facility] PRN Reason: Protocol Last Admin: 01/18/18 21:06 Dose: 100 mls/hr Ondansetron HCl (Zofran Inj) 4 mg IVP Q6 PRN PRN Reason: Nausea/Vomiting Last Admin: 01/15/18 16:49 Dose: 4 mg Sevelamer Carbonate (Renvela) 3,200 mg PO TIDCC [facility] Last Admin: 01/19/18 12:37 Dose: 3,200 mg Vitamin B Complex/Vit C/Folic Acid (Nephro-Kell) 1 tab PO DAILY [facility] Last Admin: 01/19/18 09:47 Dose: 1 tab - Labs Labs: 01/18/18 19:46 01/18/18 19:46 PT 16.1 SECONDS (9.7-12.2) H 01/18/18 19:46 INR 1.4 01/18/18 19:46 APTT 33 SECONDS (21-34) 01/18/18 19:46
--- NOTE | 2018-01-19 15:03 | CP.PCM.PN ---
Subjective - Date & Time of Evaluation Date of Evaluation: 01/19/18 Time of Evaluation: 14:59 - Subjective Subjective: Nephrology Consultation Note: Assessment: Stable left renal infected cyst/abscess s/p drainage 01/19/18 (10 mL) End stage renal disease (N18.6) dependence on hemodialysis (Z99.2) (TTS) via AVF Anemia (D64.9), Hyperphosphatemia (E83.39), Secondary Hyperparathyroidism (E21.1 ), HTN (I12.0) Obesity severe systolic CHF (LVEF 20-25%) with severely dilated LV Plan: Will plan for HD tomorrow as ordered. Continue with Nephrovite 1 tab/day. PRBC as needed for anemia. 1 unit PRBC 01/18/18. will resume epogen as CT with IV contrast without evidence of solid renal mass Continue with phos binders home dose Continue with sensipar BP controlled with meds as ordered. added low dose losartan considering CHF Glycemic control, Dialysis consistent diet CHF optimization as per cardiology Further work up/management as per primary team Dose meds/antibiotics (if needed) for ESRD status. Avoid fleets enema/magnesium based laxatives. ID, and IR following. work up for renal mass, cyst ongoing Thanks for allowing me to participate in care of your patient. Will follow patient with you. Please call if any Qs. had d/w team Dr Tomas Cox Office: [phone] HPI: Pt is a 47 M with hx of ESRD on hemodialysis (TTS) via AVF, last dialysis Wednesday, chronic anemia, hyperphosphatemia, secondary hyperparathyroidism, HTN presented with complaints of chest pain, SOB and fever at home after dialysis session. renal consult for ESRD management now feels better. reports resolved SOB. denies chest pain pt on HD x 4 years, minimal urine output ROS: Cardiovascular: No chest pain now. Pulmonary: no shortness of breath Gastrointestinal: denies abdominal pain No nausea. No vomiting. Genitourinary: anuric mostly. All other negative except as mentioned in HPI. says BP was low during HD on wednesday Physical Examination: General Appearance: Comfortable, in no acute respiratory distress, co-operative . obese Vitals reviewed and noted as below Head; Atraumatic, normocephalic ENT: no ulcers no thrush. Tongue is midline. Oropharynx: no rash or ulcers. EYES: Pupils are equal, round and reactive to light accommodation. Eye muscles and extraocular movement intact. Sclera is anicteric. Neck; supple no lymphadenopathy, no thyromegaly or bruit Lungs: Normal respiratory rate/effort. Breath sounds bilateral equal and clear Heart: Normal rate. s1s2 normal. No rub or gallop. Extremities: no edema. No varicose veins Neurological: Patient is alert, awake and oriented to person, place and time. No focal deficit. Strength bilateral appropriate and equal Skin: Warm and dry. Normal turgor. No rash. Palpitation: Normal elasticity for age Abdomen: Abdomen is soft. Bowel sounds +. There is no abdominal tenderness, no guarding/rigidity or organomegaly. Psych: normal insight and normal affect/mood MSK: no joint tenderness or swelling. Digits and nails normal, no deformity : kidney or bladder not palpable Access: left AVF Labs/imaging reviewed. Past medical history, past surgical history, family history, social history, allergy reviewed and noted as below Family Hx: 2 brother on dialysis rest Non contributory Objective - Vital Signs/Intake and Output Vital Signs (last 24 hours): Temp Pulse Resp BP Pulse Ox 98.0 F 90 16 124/75 100 01/19/18 12:10 01/19/18 14:21 01/19/18 12:10 01/19/18 14:21 01/19/18 07:00 Intake and Output: 01/19/18 01/19/18 06:59 18:59 Intake Total 500 400 Balance 500 400 - Medications Medications: Current Medications Acetaminophen (Tylenol 325mg Tab) 650 mg PO Q4 PRN PRN Reason: Pain and temp >100.4 Last Admin: 01/18/18 17:13 Dose: 650 mg Aspirin (Ecotrin) 81 mg PO DAILY [facility] Last Admin: 01/19/18 09:11 Dose: Not Given Cinacalcet (Sensipar) 60 mg PO DAILY [facility] Last Admin: 01/19/18 09:17 Dose: 60 mg Epoetin Ramirez (Procrit) 10,000 unit IV TTS [facility] Metronidazole (Flagyl) 500 mg in 100 mls @ 100 mls/hr IVPB Q8 [facility] PRN Reason: Protocol Last Admin: 01/19/18 13:49 Dose: 100 mls/hr Meropenem 500 mg/ Sodium (Chloride) 100 mls @ 100 mls/hr IVPB Q24H [facility] PRN Reason: Protocol Last Admin: 01/18/18 21:06 Dose: 100 mls/hr Ondansetron HCl (Zofran Inj) 4 mg IVP Q6 PRN PRN Reason: Nausea/Vomiting Last Admin: 01/15/18 16:49 Dose: 4 mg Propranolol HCl (Inderal) 20 mg PO TID [facility] Last Admin: 01/19/18 14:21 Dose: 20 mg Sevelamer Carbonate (Renvela) 3,200 mg PO TIDCC [facility] Last Admin: 01/19/18 12:37 Dose: 3,200 mg Vitamin B Complex/Vit C/Folic Acid (Nephro-Kell) 1 tab PO DAILY [facility] Last Admin: 01/19/18 09:47 Dose: 1 tab - Labs Labs: 01/18/18 19:46 01/18/18 19:46 PT 16.1 SECONDS (9.7-12.2) H 01/18/18 19:46 INR 1.4 01/18/18 19:46 APTT 33 SECONDS (21-34) 01/18/18 19:46
--- NOTE | 2018-01-19 22:09 | CP.PCM.PN ---
Subjective - Date & Time of Evaluation Date of Evaluation: 01/19/18 Time of Evaluation: 22:08 - Subjective Subjective: CHIEF COMPLAINTS TODAY : SPIKING TEMP NO HEMATURIA s/p US GUIDED ASPIRATION LT. KIDNEY CYST BY IR. 01/19/18 ROS. HEENT : N. Resp : No cough, wheezing ,pleuritic CP ,or hemoptysis Cardio : No anginal CP, PND, orthopnea, palpitation GI : No abd.pain, n/v ,diarrhea or GI bleeding . SITE ENGINEER : No headache, vertigo, focal deficit. Musculoskel : No joint swelling , Derm : No rash Psych : Normal affect. Ext : No swelling ,calf pain PE. Pt. is alert awake in no distress. V.S As noted in the chart Head ,ear nose,throat and eyes : Normal. Neck : Supple with normal carotids. Lungs: Clear air entry. Heart : S1 & S2 normal with S4. DANIELLE IN LLSB Abd : Soft non tender with normal bowel sounds. Neuro : Moves all ext. with no localized deficit. Ext : No edema with intact pulses.Non tender calves Derm : No rashes or decubitus ulcer. LABS/RADIOLOGY: BLOOD CULTURES -VE TO DATE Objective - Vital Signs/Intake and Output Vital Signs (last 24 hours): Temp Pulse Resp BP Pulse Ox 99.1 F 80 20 114/66 95 01/19/18 15:08 01/19/18 20:29 01/19/18 15:08 01/19/18 20:29 01/19/18 15:08 Intake and Output: 01/19/18 01/20/18 18:59 06:59 Intake Total 400 Balance 400 - Medications Medications: Current Medications Acetaminophen (Tylenol 325mg Tab) 650 mg PO Q4 PRN PRN Reason: Pain and temp >100.4 Last Admin: 01/18/18 17:13 Dose: 650 mg Aspirin (Ecotrin) 81 mg PO DAILY [facility] Last Admin: 01/19/18 09:11 Dose: Not Given Cinacalcet (Sensipar) 60 mg PO DAILY [facility] Last Admin: 01/19/18 09:17 Dose: 60 mg Epoetin Ramirez (Procrit) 10,000 unit IV TTS [facility] Metronidazole (Flagyl) 500 mg in 100 mls @ 100 mls/hr IVPB Q8 [facility] PRN Reason: Protocol Last Admin: 01/19/18 13:49 Dose: 100 mls/hr Meropenem 500 mg/ Sodium (Chloride) 100 mls @ 100 mls/hr IVPB Q24H [facility] PRN Reason: Protocol Last Admin: 01/18/18 21:06 Dose: 100 mls/hr Losartan Potassium (Cozaar) 25 mg PO QPM [facility] Last Admin: 01/19/18 20:30 Dose: Not Given Ondansetron HCl (Zofran Inj) 4 mg IVP Q6 PRN PRN Reason: Nausea/Vomiting Last Admin: 01/15/18 16:49 Dose: 4 mg Propranolol HCl (Inderal) 20 mg PO TID [facility] Last Admin: 01/19/18 17:18 Dose: 20 mg Sevelamer Carbonate (Renvela) 3,200 mg PO TIDCC [facility] Last Admin: 01/19/18 17:18 Dose: 3,200 mg Vitamin B Complex/Vit C/Folic Acid (Nephro-Kell) 1 tab PO DAILY [facility] Last Admin: 01/19/18 09:47 Dose: 1 tab - Labs Labs: 01/18/18 19:46 01/18/18 19:46 PT 16.1 SECONDS (9.7-12.2) H 01/18/18 19:46 INR 1.4 01/18/18 19:46 APTT 33 SECONDS (21-34) 01/18/18 19:46 Assessment and Plan (1) Fever and chills Assessment & Plan: CONTINUE ON IV MERREM 500MG IVPB [id number] 01/15/18 ON IV FLAGYL 500MG IV Q 8HRLY 01/15/18. CONTINUE IV VANCOMYCIN 1GM POST HD TTS X 5 DOSES.STARTING 01/13/18 PATIENT FOR IR US -GUIDED ASPIRATION CYST /VS ABSCESS TODAY 10CC DARK COLORED FLUID OBTAINED. DISCUSSED WITH FAMILY/AND PT. Status: Acute (2) Bilateral renal cysts Assessment & Plan: Patient for US-guided aspiration left renal cysts 01/19/18. and appropriate cultures for bacteria, fungal and AFB smear and culture/and cytology Status: Acute (3) Chest pain Status: Acute (4) SOB (shortness of breath) Status: Acute (5) ESRD (end stage renal disease) on dialysis Status: Acute
[2018-01-19] MEDS: Meropenem 500 MG in Sodium Chloride 0.9% 100 ML IVPB SCH (23:56)
[2018-01-20] MEDS: metroNIDAZOLE IV 500 mg/100 ml 500 MG/100 ML BAG IVPB SCH ×3 (05:45→21:56)
[2018-01-20] MEDS: Epoetin Alfa 10,000 unit/ml Dialysis IV SCH (10:40)
[2018-01-20] MEDS: Multivitamin Vitamin B Complex (Nephro-Vite) Tab PO SCH ×2 (10:42→14:38)
[2018-01-20 11:17] LABS: BASO # 0.1 K/uL (0.0-0.2); BASO % 0.3 % (0.0-2.0); EOS # 0.3 K/uL (0.0-0.7); EOS % 1.6 % (0.0-4.0); HEMOGLOBIN 9.3 g/dL (12.0-18.0); LYMPH # 2.3 K/uL (1.0-4.3); LYMPH % 14.2 % (20.0-40.0); MEAN CELL VOLUME 93.1 fL (80.0-94.0); MEAN CORPUSCULAR HEMOGLOBIN 32.2 pg (27.0-31.0); MEAN CORPUSCULAR HGB CONC 34.5 g/dL (33.0-37.0); MEAN PLATELET VOLUME 6.5 fL (7.2-11.7); MONO # 1.1 K/uL (0.0-0.8); MONO % 6.7 % (0.0-10.0); NEUT # 12.6 K/uL (1.8-7.0); NEUT % 77.2 % (50.0-75.0); RBC 2.89 Mil/uL (4.40-5.90); RED CELL DISTRIBUTION WIDTH 13.7 % (11.5-14.5); WHITE BLOOD COUNT 16.3 K/uL (4.8-10.8)
--- NOTE | 2018-01-20 13:46 | CP.PCM.PN ---
Subjective - Date & Time of Evaluation Date of Evaluation: 01/20/18 Time of Evaluation: 13:45 - Subjective Subjective: CHIEF COMPLAINTS TODAY : SPIKING TEMP NO HEMATURIA ROS. HEENT : N. Resp : No cough, wheezing ,pleuritic CP ,or hemoptysis Cardio : No anginal CP, PND, orthopnea, palpitation GI : No abd.pain, n/v ,diarrhea or GI bleeding . GAMEMASTER : No headache, vertigo, focal deficit. Musculoskel : No joint swelling , Derm : No rash Psych : Normal affect. Ext : No swelling ,calf pain PE. Pt. is alert awake in no distress. V.S As noted in the chart Head ,ear nose,throat and eyes : Normal. Neck : Supple with normal carotids. Lungs: Clear air entry. Heart : S1 & S2 normal with S4. DANIELLE IN LLSB Abd : Soft non tender with normal bowel sounds. Neuro : Moves all ext. with no localized deficit. Ext : No edema with intact pulses.Non tender calves Derm : No rashes or decubitus ulcer. LABS/RADIOLOGY: ASPIRATE GRAM -VE RODS ASSESSMENT/PLAN : IV AB MONITOR HR Objective - Vital Signs/Intake and Output Vital Signs (last 24 hours): Temp Pulse Resp BP Pulse Ox 98.5 F 85 18 129/76 100 01/20/18 13:20 01/20/18 13:20 01/20/18 13:20 01/20/18 13:20 01/20/18 13:20 - Medications Medications: Current Medications Acetaminophen (Tylenol 325mg Tab) 650 mg PO Q4 PRN PRN Reason: Pain and temp >100.4 Last Admin: 01/18/18 17:13 Dose: 650 mg Aspirin (Ecotrin) 81 mg PO DAILY [facility] Last Admin: 01/20/18 10:41 Dose: Not Given Cinacalcet (Sensipar) 60 mg PO DAILY [facility] Last Admin: 01/20/18 10:42 Dose: Not Given Epoetin Ramirez (Procrit) 10,000 unit IV TTS [facility] Last Admin: 01/20/18 10:40 Dose: 10,000 unit Metronidazole (Flagyl) 500 mg in 100 mls @ 100 mls/hr IVPB Q8 [facility] PRN Reason: Protocol Last Admin: 01/20/18 05:45 Dose: 100 mls/hr Meropenem 500 mg/ Sodium (Chloride) 100 mls @ 100 mls/hr IVPB Q24H [facility] PRN Reason: Protocol Last Admin: 01/19/18 23:56 Dose: 100 mls/hr Losartan Potassium (Cozaar) 25 mg PO QPM [facility] Last Admin: 01/19/18 20:30 Dose: Not Given Ondansetron HCl (Zofran Inj) 4 mg IVP Q6 PRN PRN Reason: Nausea/Vomiting Last Admin: 01/15/18 16:49 Dose: 4 mg Propranolol HCl (Inderal) 20 mg PO TID [facility] Last Admin: 01/20/18 10:41 Dose: Not Given Sevelamer Carbonate (Renvela) 3,200 mg PO TIDCC [facility] Last Admin: 01/20/18 08:25 Dose: 3,200 mg Vitamin B Complex/Vit C/Folic Acid (Nephro-Kell) 1 tab PO DAILY [facility] Last Admin: 01/20/18 10:42 Dose: Not Given - Labs Labs: 01/20/18 11:13 01/18/18 19:46 PT 16.1 SECONDS (9.7-12.2) H 01/18/18 19:46 INR 1.4 01/18/18 19:46 APTT 33 SECONDS (21-34) 01/18/18 19:46
--- NOTE | 2018-01-20 14:02 | CP.PCM.PN ---
Subjective - Date & Time of Evaluation Date of Evaluation: 01/20/18 Time of Evaluation: 14:02 - Subjective Subjective: CHIEF COMPLAINTS TODAY : SPIKING TEMP. TMAX 100.1 NO HEMATURIA s/p US GUIDED ASPIRATION LT. KIDNEY CYST BY IR. 01/19/18 ROS. HEENT : N. Resp : No cough, wheezing ,pleuritic CP ,or hemoptysis Cardio : No anginal CP, PND, orthopnea, palpitation GI : No abd.pain, n/v ,diarrhea or GI bleeding . ELEVATOR RUNNER : No headache, vertigo, focal deficit. Musculoskel : No joint swelling , Derm : No rash Psych : Normal affect. Ext : No swelling ,calf pain PE. Pt. is alert awake in no distress. V.S As noted in the chart Head ,ear nose,throat and eyes : Normal. Neck : Supple with normal carotids. Lungs: Clear air entry. Heart : S1 & S2 normal with S4. DANIELLE IN LLSB Abd : Soft non tender with normal bowel sounds. Neuro : Moves all ext. with no localized deficit. Ext : No edema with intact pulses.Non tender calves Derm : No rashes or decubitus ulcer. LABS/RADIOLOGY: ASPIRATE LT KIDNEY CYST--GNR. BLOOD CULTURES -VE TO DATE Objective - Vital Signs/Intake and Output Vital Signs (last 24 hours): Temp Pulse Resp BP Pulse Ox 98.5 F 85 18 129/76 100 01/20/18 13:20 01/20/18 13:20 01/20/18 13:20 01/20/18 13:20 01/20/18 13:20 Intake and Output: 01/20/18 01/20/18 06:59 18:59 Intake Total 700 Balance 700 - Medications Medications: Current Medications Acetaminophen (Tylenol 325mg Tab) 650 mg PO Q4 PRN PRN Reason: Pain and temp >100.4 Last Admin: 01/18/18 17:13 Dose: 650 mg Aspirin (Ecotrin) 81 mg PO DAILY [facility] Last Admin: 01/20/18 10:41 Dose: Not Given Cinacalcet (Sensipar) 60 mg PO DAILY [facility] Last Admin: 01/20/18 10:42 Dose: Not Given Epoetin Ramirez (Procrit) 10,000 unit IV TTS [facility] Last Admin: 01/20/18 10:40 Dose: 10,000 unit Metronidazole (Flagyl) 500 mg in 100 mls @ 100 mls/hr IVPB Q8 [facility] PRN Reason: Protocol Last Admin: 01/20/18 05:45 Dose: 100 mls/hr Meropenem 500 mg/ Sodium (Chloride) 100 mls @ 100 mls/hr IVPB Q24H [facility] PRN Reason: Protocol Last Admin: 01/19/18 23:56 Dose: 100 mls/hr Losartan Potassium (Cozaar) 25 mg PO QPM [facility] Last Admin: 01/19/18 20:30 Dose: Not Given Ondansetron HCl (Zofran Inj) 4 mg IVP Q6 PRN PRN Reason: Nausea/Vomiting Last Admin: 01/15/18 16:49 Dose: 4 mg Propranolol HCl (Inderal) 20 mg PO TID [facility] Last Admin: 01/20/18 10:41 Dose: Not Given Sevelamer Carbonate (Renvela) 3,200 mg PO TIDCC [facility] Last Admin: 01/20/18 08:25 Dose: 3,200 mg Vitamin B Complex/Vit C/Folic Acid (Nephro-Kell) 1 tab PO DAILY [facility] Last Admin: 01/20/18 10:42 Dose: Not Given - Labs Labs: 01/20/18 11:13 01/18/18 19:46 PT 16.1 SECONDS (9.7-12.2) H 01/18/18 19:46 INR 1.4 01/18/18 19:46 APTT 33 SECONDS (21-34) 01/18/18 19:46 Assessment and Plan (1) Fever and chills Assessment & Plan: CONTINUE ON IV MERREM 500MG IVPB [id number] 01/15/18 ON IV FLAGYL 500MG IV Q 8HRLY 01/15/18. CONTINUE IV VANCOMYCIN 1GM POST HD TTS X 5 DOSES.STARTING 01/13/18 Status: Acute (2) Bilateral renal cysts Assessment & Plan: S/P ASPIRATION LT RENAL CYST. ASPIRATE FLUID -GNR. ? INFECTED CYST/ABSCESS. CONTINUE IV ABX.. Status: Acute (3) Chest pain Status: Acute (4) SOB (shortness of breath) Status: Acute (5) ESRD (end stage renal disease) on dialysis Assessment & Plan: HD TTS. Status: Acute
--- NOTE | 2018-01-20 14:32 | CP.PCM.PN ---
Subjective - Date & Time of Evaluation Date of Evaluation: 01/20/18 Time of Evaluation: 14:32 - Subjective Subjective: Nephrology Consultation Note: Assessment: Stable left renal infected cyst/abscess s/p drainage 01/19/18 (10 mL) with GNR End stage renal disease (N18.6) dependence on hemodialysis (Z99.2) (TTS) via AVF Anemia (D64.9), Hyperphosphatemia (E83.39), Secondary Hyperparathyroidism (E21.1 ), HTN (I12.0) Obesity severe systolic CHF (LVEF 20-25%) with severely dilated LV Plan: Will plan for HD today as ordered. Continue with Nephrovite 1 tab/day. PRBC as needed for anemia. 1 unit PRBC 01/18/18. will resume epogen as CT with IV contrast without evidence of solid renal mass Continue with phos binders home dose Continue with sensipar BP controlled with meds as ordered. added low dose losartan considering CHF Glycemic control, Dialysis consistent diet CHF optimization as per cardiology Further work up/management as per primary team Dose meds/antibiotics (if needed) for ESRD status. Avoid fleets enema/magnesium based laxatives. ID, and IR following. work up for renal mass, cyst ongoing Thanks for allowing me to participate in care of your patient. Will follow patient with you. Please call if any Qs. had d/w team Dr Tomas Cox Office: [phone] HPI: Pt is a 47 M with hx of ESRD on hemodialysis (TTS) via AVF, last dialysis Wednesday, chronic anemia, hyperphosphatemia, secondary hyperparathyroidism, HTN presented with complaints of chest pain, SOB and fever at home after dialysis session. renal consult for ESRD management now feels better. reports resolved SOB. denies chest pain pt on HD x 4 years, minimal urine output ROS: Cardiovascular: No chest pain now. Pulmonary: no shortness of breath Gastrointestinal: denies abdominal pain No nausea. No vomiting. Genitourinary: anuric mostly. All other negative except as mentioned in HPI. Physical Examination: seen on HD General Appearance: Comfortable, in no acute respiratory distress, co-operative . obese Vitals reviewed and noted as below Head; Atraumatic, normocephalic ENT: no ulcers no thrush. Tongue is midline. Oropharynx: no rash or ulcers. EYES: Pupils are equal, round and reactive to light accommodation. Eye muscles and extraocular movement intact. Sclera is anicteric. Neck; supple no lymphadenopathy, no thyromegaly or bruit Lungs: Normal respiratory rate/effort. Breath sounds bilateral equal and clear Heart: Normal rate. s1s2 normal. No rub or gallop. Extremities: no edema. No varicose veins Neurological: Patient is alert, awake and oriented to person, place and time. No focal deficit. Strength bilateral appropriate and equal Skin: Warm and dry. Normal turgor. No rash. Palpitation: Normal elasticity for age Abdomen: Abdomen is soft. Bowel sounds +. There is no abdominal tenderness, no guarding/rigidity or organomegaly. Psych: normal insight and normal affect/mood MSK: no joint tenderness or swelling. Digits and nails normal, no deformity : kidney or bladder not palpable Access: left AVF Labs/imaging reviewed. Past medical history, past surgical history, family history, social history, allergy reviewed and noted as below Family Hx: 2 brother on dialysis rest Non contributory Objective - Vital Signs/Intake and Output Vital Signs (last 24 hours): Temp Pulse Resp BP Pulse Ox 98.5 F 85 18 129/76 100 01/20/18 13:20 01/20/18 13:20 01/20/18 13:20 01/20/18 13:20 01/20/18 13:20 Intake and Output: 01/20/18 01/20/18 06:59 18:59 Intake Total 700 Balance 700 - Medications Medications: Current Medications Acetaminophen (Tylenol 325mg Tab) 650 mg PO Q4 PRN PRN Reason: Pain and temp >100.4 Last Admin: 01/18/18 17:13 Dose: 650 mg Aspirin (Ecotrin) 81 mg PO DAILY [facility] Last Admin: 01/20/18 10:41 Dose: Not Given Cinacalcet (Sensipar) 60 mg PO DAILY [facility] Last Admin: 01/20/18 10:42 Dose: Not Given Epoetin Ramirez (Procrit) 10,000 unit IV TTS [facility] Last Admin: 01/20/18 10:40 Dose: 10,000 unit Metronidazole (Flagyl) 500 mg in 100 mls @ 100 mls/hr IVPB Q8 [facility] PRN Reason: Protocol Last Admin: 01/20/18 05:45 Dose: 100 mls/hr Meropenem 500 mg/ Sodium (Chloride) 100 mls @ 100 mls/hr IVPB Q24H [facility] PRN Reason: Protocol Last Admin: 01/19/18 23:56 Dose: 100 mls/hr Losartan Potassium (Cozaar) 25 mg PO QPM [facility] Last Admin: 01/19/18 20:30 Dose: Not Given Ondansetron HCl (Zofran Inj) 4 mg IVP Q6 PRN PRN Reason: Nausea/Vomiting Last Admin: 01/15/18 16:49 Dose: 4 mg Propranolol HCl (Inderal) 20 mg PO TID [facility] Last Admin: 01/20/18 10:41 Dose: Not Given Sevelamer Carbonate (Renvela) 3,200 mg PO TIDCC [facility] Last Admin: 01/20/18 08:25 Dose: 3,200 mg Vitamin B Complex/Vit C/Folic Acid (Nephro-Kell) 1 tab PO DAILY [facility] Last Admin: 01/20/18 10:42 Dose: Not Given - Labs Labs: 01/20/18 11:13 01/18/18 19:46 PT 16.1 SECONDS (9.7-12.2) H 01/18/18 19:46 INR 1.4 01/18/18 19:46 APTT 33 SECONDS (21-34) 01/18/18 19:46
[2018-01-20] MEDS: Meropenem 500 MG in Sodium Chloride 0.9% 100 ML IVPB SCH (21:07)
[2018-01-21 04:40] VITALS: RESP 20
[2018-01-21] MEDS: metroNIDAZOLE IV 500 mg/100 ml 500 MG/100 ML BAG IVPB SCH ×3 (06:31→22:14)
[2018-01-21] MEDS: Multivitamin Vitamin B Complex (Nephro-Vite) Tab PO SCH (10:42)
--- NOTE | 2018-01-21 13:51 | CP.PCM.PN ---
Subjective - Date & Time of Evaluation Date of Evaluation: 01/21/18 Time of Evaluation: 13:50 - Subjective Subjective: CHIEF COMPLAINTS TODAY : CHILLS NO HEMATURIA ROS. HEENT : N. Resp : No cough, wheezing ,pleuritic CP ,or hemoptysis Cardio : No anginal CP, PND, orthopnea, palpitation GI : No abd.pain, n/v ,diarrhea or GI bleeding . FAMILY PRACTITIONER : No headache, vertigo, focal deficit. Musculoskel : No joint swelling , Derm : No rash Psych : Normal affect. Ext : No swelling ,calf pain PE. Pt. is alert awake in no distress. V.S As noted in the chart Head ,ear nose,throat and eyes : Normal. Neck : Supple with normal carotids. Lungs: Clear air entry. Heart : S1 & S2 normal with S4. DANIELLE IN LLSB Abd : Soft non tender with normal bowel sounds. Neuro : Moves all ext. with no localized deficit. Ext : No edema with intact pulses.Non tender calves Derm : No rashes or decubitus ulcer. LABS/RADIOLOGY: ASPIRATE GRAM -VE RODS , SEN TO CIPRO ASSESSMENT/PLAN : IV AB MONITOR HR Objective - Vital Signs/Intake and Output Vital Signs (last 24 hours): Temp Pulse Resp BP Pulse Ox 98.6 F 100 H 20 119/73 98 01/21/18 07:00 01/21/18 08:00 01/21/18 07:00 01/21/18 07:00 01/21/18 07:00 - Medications Medications: Current Medications Acetaminophen (Tylenol 325mg Tab) 650 mg PO Q4 PRN PRN Reason: Pain and temp >100.4 Last Admin: 01/18/18 17:13 Dose: 650 mg Aspirin (Ecotrin) 81 mg PO DAILY [facility] Last Admin: 01/21/18 10:42 Dose: 81 mg Cinacalcet (Sensipar) 60 mg PO DAILY [facility] Last Admin: 01/21/18 10:43 Dose: 60 mg Epoetin Ramirez (Procrit) 10,000 unit IV TTS [facility] Last Admin: 01/20/18 10:40 Dose: 10,000 unit Metronidazole (Flagyl) 500 mg in 100 mls @ 100 mls/hr IVPB Q8 [facility] PRN Reason: Protocol Last Admin: 01/21/18 06:31 Dose: 100 mls/hr Meropenem 500 mg/ Sodium (Chloride) 100 mls @ 100 mls/hr IVPB Q24H [facility] PRN Reason: Protocol Last Admin: 01/20/18 21:07 Dose: 100 mls/hr Losartan Potassium (Cozaar) 25 mg PO QPM [facility] Last Admin: 01/20/18 17:48 Dose: 25 mg Ondansetron HCl (Zofran Inj) 4 mg IVP Q6 PRN PRN Reason: Nausea/Vomiting Last Admin: 01/15/18 16:49 Dose: 4 mg Propranolol HCl (Inderal) 20 mg PO TID [facility] Last Admin: 01/21/18 10:43 Dose: 20 mg Sevelamer Carbonate (Renvela) 3,200 mg PO TIDCC [facility] Last Admin: 01/21/18 12:52 Dose: 3,200 mg Vitamin B Complex/Vit C/Folic Acid (Nephro-Kell) 1 tab PO DAILY [facility] Last Admin: 01/21/18 10:42 Dose: 1 tab - Labs Labs: 01/20/18 11:13 01/18/18 19:46 PT 16.1 SECONDS (9.7-12.2) H 01/18/18 19:46 INR 1.4 01/18/18 19:46 APTT 33 SECONDS (21-34) 01/18/18 19:46
--- NOTE | 2018-01-21 14:35 | CP.PCM.PN ---
Subjective - Date & Time of Evaluation Date of Evaluation: 01/21/18 Time of Evaluation: 14:35 - Subjective Subjective: CHIEF COMPLAINTS TODAY : TEMP. TMAX 100.1 NO HEMATURIA no NEW COMPLAINTS /RENAL F/U NOTED. s/p US GUIDED ASPIRATION LT. KIDNEY CYST BY IR. 01/19/18 ROS. HEENT : N. Resp : No cough, wheezing ,pleuritic CP ,or hemoptysis Cardio : No anginal CP, PND, orthopnea, palpitation GI : No abd.pain, n/v ,diarrhea or GI bleeding . LEAD CARE MANAGER : No headache, vertigo, focal deficit. Musculoskel : No joint swelling , Derm : No rash Psych : Normal affect. Ext : No swelling ,calf pain PE. Pt. is alert awake in no distress. V.S As noted in the chart Head ,ear nose,throat and eyes : Normal. Neck : Supple with normal carotids. Lungs: Clear air entry. Heart : S1 & S2 normal with S4. DANIELLE IN LLSB Abd : Soft non tender with normal bowel sounds. Neuro : Moves all ext. with no localized deficit. Ext : No edema with intact pulses.Non tender calves Derm : No rashes or decubitus ulcer. LABS/RADIOLOGY: WBC 16.7 HIGH ASPIRATE LT KIDNEY CYST--ENTEROBACTER AEROGENES -S CEFEPIME,ERTAPENEM, GENTAMICIN,CIPRO BLOOD CULTURES -VE TO DATE Objective - Vital Signs/Intake and Output Vital Signs (last 24 hours): Temp Pulse Resp BP Pulse Ox 98.6 F 100 H 20 119/73 98 01/21/18 07:00 01/21/18 08:00 01/21/18 07:00 01/21/18 07:00 01/21/18 07:00 - Medications Medications: Current Medications Acetaminophen (Tylenol 325mg Tab) 650 mg PO Q4 PRN PRN Reason: Pain and temp >100.4 Last Admin: 01/18/18 17:13 Dose: 650 mg Aspirin (Ecotrin) 81 mg PO DAILY [facility] Last Admin: 01/21/18 10:42 Dose: 81 mg Cinacalcet (Sensipar) 60 mg PO DAILY [facility] Last Admin: 01/21/18 10:43 Dose: 60 mg Epoetin Ramirez (Procrit) 10,000 unit IV TTS [facility] Last Admin: 01/20/18 10:40 Dose: 10,000 unit Metronidazole (Flagyl) 500 mg in 100 mls @ 100 mls/hr IVPB Q8 [facility] PRN Reason: Protocol Last Admin: 01/21/18 06:31 Dose: 100 mls/hr Meropenem 500 mg/ Sodium (Chloride) 100 mls @ 100 mls/hr IVPB Q24H [facility] PRN Reason: Protocol Last Admin: 01/20/18 21:07 Dose: 100 mls/hr Gentamicin Sulfate 140 mg/ (Sodium Chloride) 103.5 mls @ 100 mls/hr IVPB ONCE ONE PRN Reason: Protocol Stop: 01/22/18 13:02 Gentamicin Sulfate 100 mg/ (Sodium Chloride) 102.5 mls @ 100 mls/hr IVPB TTS [facility] PRN Reason: Protocol Stop: 02/03/18 11:02 Losartan Potassium (Cozaar) 25 mg PO QPM [facility] Last Admin: 01/20/18 17:48 Dose: 25 mg Ondansetron HCl (Zofran Inj) 4 mg IVP Q6 PRN PRN Reason: Nausea/Vomiting Last Admin: 01/15/18 16:49 Dose: 4 mg Propranolol HCl (Inderal) 20 mg PO TID [facility] Last Admin: 01/21/18 10:43 Dose: 20 mg Sevelamer Carbonate (Renvela) 3,200 mg PO TIDCC [facility] Last Admin: 01/21/18 12:52 Dose: 3,200 mg Vitamin B Complex/Vit C/Folic Acid (Nephro-Kell) 1 tab PO DAILY [facility] Last Admin: 01/21/18 10:42 Dose: 1 tab - Labs Labs: 01/20/18 11:13 01/18/18 19:46 PT 16.1 SECONDS (9.7-12.2) H 01/18/18 19:46 INR 1.4 01/18/18 19:46 APTT 33 SECONDS (21-34) 01/18/18 19:46 Assessment and Plan (1) Fever and chills Assessment & Plan: CONTINUE ON IV MERREM 500MG IVPB [id number] 01/15/18 ON IV FLAGYL 500MG IV Q 8HRLY 01/15/18. DISCONTINUE IV VANCOMYCIN . ADDIV GENTAMICIN 140MG LDON POST HD 01/22/18 F/U 100MG IVPB TTS POST HD X 5 DOSES. LAST DOSE 02/05/18. Status: Acute (2) Bilateral renal cysts Assessment & Plan: S/P ASPIRATION LT RENAL CYST. ASPIRATE FLUID -ENTEROBACTER AEROGENES ? INFECTED CYST/ABSCESS. CONTINUE IV ABX. CASE DISCUSSED W NEPHROLOGY. PT WILL NEED IV-PO ABX WILL DISCUSS WITH IF HE PLANS TO DO CYSTOSCPY FOR PRIOR HEMATURIA MENTIONED IN NOTE ? IF NO CYSTOSCOPY -PT CAN BE D/C ON PO CIPRO 500 MG MG OD DAILY X 21 DAYS. + GENTAMYCIN 100MG IVPB POST HD TTS. X 2WEEKS AFTER LD OF 140MG IN AM POST HD. Status: Acute (3) Chest pain Status: Acute (4) SOB (shortness of breath) Status: Acute (5) ESRD (end stage renal disease) on dialysis Status: Acute
--- NOTE | 2018-01-21 15:57 | CP.PCM.PN ---
Subjective - Date & Time of Evaluation Date of Evaluation: 01/21/18 Time of Evaluation: 15:56 - Subjective Subjective: Nephrology Consultation Note: Assessment: Stable left renal infected cyst/abscess s/p drainage 01/19/18 (10 mL) with GNR End stage renal disease (N18.6) dependence on hemodialysis (Z99.2) (TTS) via AVF Anemia (D64.9), Hyperphosphatemia (E83.39), Secondary Hyperparathyroidism (E21.1 ), HTN (I12.0) Obesity severe systolic CHF (LVEF 20-25%) with severely dilated LV Plan: Will plan for HD tomorrow as ordered. Continue with Nephrovite 1 tab/day. PRBC as needed for anemia. 1 unit PRBC 01/18/18. will resume epogen as CT with IV contrast without evidence of solid renal mass Continue with phos binders home dose Continue with sensipar BP controlled with meds as ordered. added low dose losartan considering CHF Glycemic control, Dialysis consistent diet CHF optimization as per cardiology Further work up/management as per primary team Dose meds/antibiotics (if needed) for ESRD status. Avoid fleets enema/magnesium based laxatives. ID, and IR following. work up for renal mass, cyst ongoing pt stable for d/c from renal perspective when planned Thanks for allowing me to participate in care of your patient. Will follow patient with you. Please call if any Qs. had d/w team Dr Tomas Cox Office: [phone] HPI: Pt is a 47 M with hx of ESRD on hemodialysis (TTS) via AVF, last dialysis Wednesday, chronic anemia, hyperphosphatemia, secondary hyperparathyroidism, HTN presented with complaints of chest pain, SOB and fever at home after dialysis session. renal consult for ESRD management now feels better. reports resolved SOB. denies chest pain pt on HD x 4 years, minimal urine output ROS: Cardiovascular: No chest pain now. Pulmonary: no shortness of breath Gastrointestinal: denies abdominal pain No nausea. No vomiting. Genitourinary: anuric mostly. All other negative except as mentioned in HPI. Physical Examination: General Appearance: Comfortable, in no acute respiratory distress, co-operative . obese Vitals reviewed and noted as below Head; Atraumatic, normocephalic ENT: no ulcers no thrush. Tongue is midline. Oropharynx: no rash or ulcers. EYES: Pupils are equal, round and reactive to light accommodation. Eye muscles and extraocular movement intact. Sclera is anicteric. Neck; supple no lymphadenopathy, no thyromegaly or bruit Lungs: Normal respiratory rate/effort. Breath sounds bilateral equal and clear Heart: Normal rate. s1s2 normal. No rub or gallop. Extremities: no edema. No varicose veins Neurological: Patient is alert, awake and oriented to person, place and time. No focal deficit. Strength bilateral appropriate and equal Skin: Warm and dry. Normal turgor. No rash. Palpitation: Normal elasticity for age Abdomen: Abdomen is soft. Bowel sounds +. There is no abdominal tenderness, no guarding/rigidity or organomegaly. Psych: normal insight and normal affect/mood MSK: no joint tenderness or swelling. Digits and nails normal, no deformity : kidney or bladder not palpable Access: left AVF Labs/imaging reviewed. Past medical history, past surgical history, family history, social history, allergy reviewed and noted as below Family Hx: 2 brother on dialysis rest Non contributory Objective - Vital Signs/Intake and Output Vital Signs (last 24 hours): Temp Pulse Resp BP Pulse Ox 98.6 F 81 20 119/73 98 01/21/18 07:00 01/21/18 12:00 01/21/18 07:00 01/21/18 07:00 01/21/18 07:00 Intake and Output: 01/21/18 01/21/18 06:59 18:59 Intake Total 600 Balance 600 - Medications Medications: Current Medications Acetaminophen (Tylenol 325mg Tab) 650 mg PO Q4 PRN PRN Reason: Pain and temp >100.4 Last Admin: 01/18/18 17:13 Dose: 650 mg Aspirin (Ecotrin) 81 mg PO DAILY [facility] Last Admin: 01/21/18 10:42 Dose: 81 mg Cinacalcet (Sensipar) 60 mg PO DAILY [facility] Last Admin: 01/21/18 10:43 Dose: 60 mg Epoetin Ramirez (Procrit) 10,000 unit IV TTS [facility] Last Admin: 01/20/18 10:40 Dose: 10,000 unit Metronidazole (Flagyl) 500 mg in 100 mls @ 100 mls/hr IVPB Q8 [facility] PRN Reason: Protocol Last Admin: 01/21/18 14:38 Dose: 100 mls/hr Meropenem 500 mg/ Sodium (Chloride) 100 mls @ 100 mls/hr IVPB Q24H [facility] PRN Reason: Protocol Last Admin: 01/20/18 21:07 Dose: 100 mls/hr Gentamicin Sulfate 140 mg/ (Sodium Chloride) 103.5 mls @ 100 mls/hr IVPB ONCE ONE PRN Reason: Protocol Stop: 01/22/18 13:02 Gentamicin Sulfate 100 mg/ (Sodium Chloride) 102.5 mls @ 100 mls/hr IVPB TTS [facility] PRN Reason: Protocol Stop: 02/03/18 11:02 Losartan Potassium (Cozaar) 25 mg PO QPM [facility] Last Admin: 01/20/18 17:48 Dose: 25 mg Ondansetron HCl (Zofran Inj) 4 mg IVP Q6 PRN PRN Reason: Nausea/Vomiting Last Admin: 01/15/18 16:49 Dose: 4 mg Propranolol HCl (Inderal) 20 mg PO TID [facility] Last Admin: 01/21/18 14:37 Dose: 20 mg Sevelamer Carbonate (Renvela) 3,200 mg PO TIDCC [facility] Last Admin: 01/21/18 12:52 Dose: 3,200 mg Vitamin B Complex/Vit C/Folic Acid (Nephro-Kell) 1 tab PO DAILY [facility] Last Admin: 01/21/18 10:42 Dose: 1 tab - Labs Labs: 01/20/18 11:13 01/18/18 19:46 PT 16.1 SECONDS (9.7-12.2) H 01/18/18 19:46 INR 1.4 01/18/18 19:46 APTT 33 SECONDS (21-34) 01/18/18 19:46
--- NOTE | 2018-01-21 17:30 | PCM.URO ---
Urology Progress Note - General General: No Complaints, Tolerating Diet - Subjective Abdominal Pain: No Flank Pain: No Nausea: No Vomiting: No Voiding Well: Yes (small amount, clear) Hematuria: No [place]: Yes Dsypnea: No Chest Pain: No Fever & Chills: No - Objective Intake & Output: Intake & Output 01/20/18 01/21/18 01/21/18 18:59 06:59 18:59 Intake Total 600 Balance 600 Weight 226 lb Intake: Intake, IV Amount 100 Left Wrist 100 Oral 500 Other: # Voids Urine, Voided 2 # Bowel Movements 1 Vital Signs: Vital Signs - 24 hr 01/20/18 01/21/18 01/21/18 22:15 01:00 04:40 Temperature 100.1 F H 98.8 F Pulse Rate 95 H 88 90 Respiratory 22 20 Rate Blood Pressure 117/71 98/59 L O2 Sat by Pulse 98 98 Oximetry 01/21/18 01/21/18 01/21/18 07:00 08:00 12:00 Temperature 98.6 F Pulse Rate 94 H 100 H 81 Respiratory 20 Rate Blood Pressure 119/73 O2 Sat by Pulse 98 Oximetry 01/21/18 16:00 Temperature 98.6 F Pulse Rate 81 Respiratory 20 Rate Blood Pressure 100/64 O2 Sat by Pulse 97 Oximetry - Physical Exam Abdominal Exam: Soft, Non-Tender, Non-Distended Back: No CVA Tenderness - Plan Additional Information: Imp: stable p renal aspiration. poss uti. Hx of hemtaturia. P/Rec: antibiotic as per ID. Results of fluid aspiration w/u - pending. Pt advised re need for cystoscopy re previous hematuria - Date & Time of Note Date: 01/21/18 Time: 12:20
[2018-01-21] MEDS: Meropenem 500 MG in Sodium Chloride 0.9% 100 ML IVPB SCH (20:39)
[2018-01-21] MEDS: Saccharomyces Boulardi 250 mg Cap PO SCH (22:14)
[2018-01-22] MEDS: metroNIDAZOLE IV 500 mg/100 ml 500 MG/100 ML BAG IVPB SCH (05:54)
[2018-01-22] MEDS: Saccharomyces Boulardi 250 mg Cap PO SCH (10:00)
[2018-01-22] MEDS: Epoetin Alfa 10,000 unit/ml Dialysis IV SCH (12:45)
[2018-01-22 13:51] VITALS: TEMP 98.2
[2018-01-22] MEDS: Multivitamin Vitamin B Complex (Nephro-Vite) Tab PO SCH (13:59)
--- NOTE | 2018-01-22 14:50 | CP.PCM.DIS ---
Provider - Provider Date of Admission: 01/13/18 17:56 Attending physician: Almita Ortiz MD Time Spent in preparation of Discharge (in minutes): 45 Hospital Course - Lab Results Lab Results: Micro Results 01/17/18 21:30 Blood-Venous Blood Culture - Preliminary NO GROWTH AFTER 4 DAYS 01/19/18 11:52 Other: Please Indicate Gram Stain - Final 01/19/18 11:52 Other: Please Indicate Body Fluid Culture - Final Enterobacter Aerogenes 01/14/18 00:01 Blood-Venous Blood Culture - Final NO GROWTH AFTER 5 DAYS 01/14/18 00:01 Blood-Venous Gram Stain - Final TEST NOT PERFORMED 01/14/18 00:30 Blood-Venous Blood Culture - Final NO GROWTH AFTER 5 DAYS 01/14/18 00:30 Blood-Venous Gram Stain - Final TEST NOT PERFORMED 01/11/18 18:46 Blood Blood Culture - Final NO GROWTH AFTER 5 DAYS 01/11/18 18:00 Blood Blood Culture - Final NO GROWTH AFTER 5 DAYS 01/11/18 18:00 Blood Gram Stain - Final TEST NOT PERFORMED 01/15/18 00:42 Urine,Clean Catch Urine Culture - Final No Growth (<1,000 CFU/ML) Most Recent Lab Values WBC 16.3 K/uL (4.8-10.8) H 01/20/18 11:13 RBC 2.89 Mil/uL (4.40-5.90) L 01/20/18 11:13 Hgb 9.3 g/dL (12.0-18.0) L 01/20/18 11:13 Hct 26.9 % (35.0-51.0) L 01/20/18 11:13 MCV 93.1 fL (80.0-94.0) 01/20/18 11:13 MCH 32.2 pg (27.0-31.0) H 01/20/18 11:13 MCHC 34.5 g/dL (33.0-37.0) 01/20/18 11:13 RDW 13.7 % (11.5-14.5) 01/20/18 11:13 Plt Count 531 K/uL (130-400) H 01/20/18 11:13 MPV 6.5 fL (7.2-11.7) L 01/20/18 11:13 Neut % (Auto) 77.2 % (50.0-75.0) H 01/20/18 11:13 Lymph % (Auto) 14.2 % (20.0-40.0) L 01/20/18 11:13 [place] % (Auto) 6.7 % (0.0-10.0) 01/20/18 11:13 Eos % (Auto) 1.6 % (0.0-4.0) 01/20/18 11:13 Baso % (Auto) 0.3 % (0.0-2.0) 01/20/18 11:13 Neut # (Auto) 12.6 K/uL (1.8-7.0) H 01/20/18 11:13 Lymph # (Auto) 2.3 K/uL (1.0-4.3) 01/20/18 11:13 [place] # (Auto) 1.1 K/uL (0.0-0.8) H 01/20/18 11:13 Eos # (Auto) 0.3 K/uL (0.0-0.7) 01/20/18 11:13 Baso # (Auto) 0.1 K/uL (0.0-0.2) 01/20/18 11:13 PT 16.1 SECONDS (9.7-12.2) H 01/18/18 19:46 INR 1.4 01/18/18 19:46 APTT 33 SECONDS (21-34) 01/18/18 19:46 D-Dimer, Quantitative 863 ng/mlDDU (0-243) H 01/11/18 22:28 pO2 38 mm/Hg (30-55) 01/11/18 22:15 VBG pH 7.49 (7.32-7.43) H 01/11/18 22:15 VBG pCO2 46 mmHg (40-60) 01/11/18 22:15 VBG HCO3 32.4 mmol/L 01/11/18 22:15 VBG Total CO2 36.5 mmol/L (22-28) H 01/11/18 22:15 VBG O2 Sat (Calc) 80.9 % (40-65) H 01/11/18 22:15 VBG Base Excess 10.3 mmol/L (0.0-2.0) H 01/11/18 22:15 VBG Potassium 3.5 mmol/L (3.6-5.2) L 01/11/18 22:15 Sodium 137.0 mmol/l (132-148) 01/11/18 22:15 Chloride 97.0 mmol/L (98-107) L 01/11/18 22:15 Glucose 126 mg/dl (75-110) H 01/11/18 22:15 Lactate 1.4 mmol/L (0.7-2.1) 01/11/18 22:15 FiO2 21.0 % 01/11/18 22:15 Sodium 145 mmol/L (132-148) 01/18/18 19:46 Potassium 4.0 mmol/L (3.6-5.2) 01/18/18 19:46 Chloride 96 mmol/L (98-107) L 01/18/18 19:46 Carbon Dioxide 34 mmol/L (22-30) H 01/18/18 19:46 Anion Gap 18 (10-20) 01/18/18 19:46 BUN 39 mg/dL (9-20) H 01/18/18 19:46 Creatinine 9.5 mg/dL (0.8-1.5) H* 01/18/18 19:46 Est GFR ( Amer) 7 01/18/18 19:46 Est GFR (Non-Af Amer) 6 01/18/18 19:46 Random Glucose 137 mg/dL (75-110) H 01/18/18 19:46 Lactic Acid 0.9 mmol/L (0.7-2.1) 01/18/18 09:59 Calcium 9.1 mg/dl (8.6-10.4) 01/18/18 19:46 Phosphorus 2.7 mg/dL (2.5-4.5) 01/18/18 19:46 Magnesium 2.2 mg/dL (1.6-2.3) 01/18/18 19:46 Total Bilirubin 0.4 mg/dL (0.2-1.3) 01/18/18 06:47 AST 13 U/L (17-59) L D 01/18/18 06:47 ALT 93 U/L (21-72) H D 01/18/18 06:47 Alkaline Phosphatase 46 U/L (38-126) 01/18/18 06:47 Total Creatine Kinase 37 U/L (55-170) L 01/12/18 06:58 CK-MB (Mass) < 0.22 ng/mL (0.0-3.38) 01/12/18 06:58 Troponin I 0.0660 ng/mL (0.00-0.120) 01/12/18 06:58 NT-Pro-B Natriuret Pep 6870 pg/mL (0-450) H 01/11/18 15:54 Total Protein 4.7 g/dL (6.3-8.3) L 01/18/18 06:47 Albumin 2.2 g/dL (3.5-5.0) L D 01/18/18 06:47 Globulin 2.6 gm/dL (2.2-3.9) 01/18/18 06:47 Albumin/Globulin Ratio 0.8 (1.0-2.1) L 01/18/18 06:47 Venous Blood Potassium 3.5 mmol/L (3.6-5.2) L 01/11/18 22:15 Urine Color Yellow (YELLOW) 01/15/18 00:51 Urine Clarity Hazy (Clear) 01/15/18 00:51 Urine pH 8.0 (5.0-8.0) 01/15/18 00:51 Ur Specific [place] 1.009 (1.003-1.030) 01/15/18 00:51 Urine Protein 2+ mg/dL (NEGATIVE) H 01/15/18 00:51 Urine Glucose (UA) Normal mg/dL (Normal) 01/15/18 00:51 Urine Ketones Negative mg/dL (NEGATIVE) 01/15/18 00:51 Urine Blood 1+ (NEGATIVE) H 01/15/18 00:51 Urine Nitrate Negative (NEGATIVE) 01/15/18 00:51 Urine Bilirubin Negative (NEGATIVE) 01/15/18 00:51 Urine Urobilinogen Normal mg/dL (0.2-1.0) 01/15/18 00:51 Ur Leukocyte Esterase 3+ Polly/uL (Negative) H 01/15/18 00:51 Urine WBC (Auto) 154 /hpf (0-5) H 01/15/18 00:51 Urine RBC (Auto) 16 /hpf (0-3) H 01/15/18 00:51 Ur Squamous Epith Cells < 1 /hpf (0-5) 01/15/18 00:51 Urine Bacteria Rare (<OCC) 01/15/18 00:51 Urine Yeast (Budding) Few /hpf (NEGATIVE) H 01/15/18 00:51 Urine Chloride 30 mmol/L (32-290) L 01/13/18 14:52 Random Vancomycin 13.89 ug/mL 01/12/18 06:58 Influenza Typ A,B (EIA) Negative for flu a/b (NEGATIVE) 01/11/18 21:24 Influenza Type A Ab 1:32 titer (<1:8) H 01/12/18 06:58 Influenza Type B Ab 1:16 titer (<1:8) H 01/12/18 06:58 Blood Type A POSITIVE 01/18/18 09:57 Blood Type Confirm A POSITIVE 01/18/18 09:57 Antibody Screen Negative 01/18/18 09:57 - Hospital Course Hospital Course: ADMITTED [facility] DIALYSIS FOR CHEST PAIN AND FEVER OF 101F NO COUGH/SOB PAST HIST. HTN/CRF ON HD The first CAT scan of the abdomen showed a solid mass in the right kidney. And a complex cyst on the left kidney with possible abscess. Patient was given IV antibiotics and partially improved. Patient underwent CT-guided aspiration of the left cyst and revealed gram-negative rods and after changing antibiotic patient improved. Repeat CAT scan did not show any solid lesion on the right kidney the case was discussed with ID urologist and the lead manufacturing engineer and currently patient will continue IV antibiotics during dialysis and a by mouth antibiotics patient will be followed outpatient. Echocardiogram showed patient had a moderately depressed left ventral ejection fraction with abnormal septal wall motion abnormal day. On further inquiry patient stated that he had a cardiac catheterization done a few weeks ago in [facility]. Report was obtained which showed cardiomyopathy with normal coronaries. Patient also had a IV Lexiscan which did not reveal any ischemia. Currently patient will get medication for his cardiomyopathy to control the CHF. Related date patient is scheduled for undergo ICD. Discharge Exam - Head Exam Head Exam: NORMAL INSPECTION Discharge Plan - Follow Up Plan Condition: GUARDED Disposition: HOME/ ROUTINE
[2018-01-22 16:13] VITALS: BP 130/78; PULSE 91; O2SAT 98
--- NOTE | 2018-01-22 16:22 | CP.PCM.PN ---
Subjective - Date & Time of Evaluation Date of Evaluation: 01/22/18 Time of Evaluation: 16:22 - Subjective Subjective: Nephrology Consultation Note: Assessment: Stable left renal infected cyst/abscess s/p drainage 01/19/18 (10 mL) with GNR End stage renal disease (N18.6) dependence on hemodialysis (Z99.2) (TTS) via AVF Anemia (D64.9), Hyperphosphatemia (E83.39), Secondary Hyperparathyroidism (E21.1 ), HTN (I12.0) Obesity severe systolic CHF (LVEF 20-25%) with severely dilated LV Plan: Will plan for HD today as ordered. Continue with Nephrovite 1 tab/day. PRBC as needed for anemia. 1 unit PRBC 01/18/18. will resume epogen as CT with IV contrast without evidence of solid renal mass Continue with phos binders home dose Continue with sensipar BP controlled with meds as ordered. added low dose losartan considering CHF Glycemic control, Dialysis consistent diet CHF optimization as per cardiology Further work up/management as per primary team Dose meds/antibiotics (if needed) for ESRD status. Avoid fleets enema/magnesium based laxatives. ID, and IR following. work up for renal mass, cyst ongoing pt stable for d/c from renal perspective when planned Thanks for allowing me to participate in care of your patient. Will follow patient with you. Please call if any Qs. had d/w team Dr Tomas Cox Office: [phone] HPI: Pt is a 47 M with hx of ESRD on hemodialysis (TTS) via AVF, last dialysis Wednesday, chronic anemia, hyperphosphatemia, secondary hyperparathyroidism, HTN presented with complaints of chest pain, SOB and fever at home after dialysis session. renal consult for ESRD management now feels better. reports resolved SOB. denies chest pain pt on HD x 4 years, minimal urine output ROS: Cardiovascular: No chest pain now. Pulmonary: no shortness of breath Gastrointestinal: denies abdominal pain No nausea. No vomiting. Genitourinary: anuric mostly. All other negative except as mentioned in HPI. Physical Examination: General Appearance: Comfortable, in no acute respiratory distress, co-operative . obese Vitals reviewed and noted as below Head; Atraumatic, normocephalic ENT: no ulcers no thrush. Tongue is midline. Oropharynx: no rash or ulcers. EYES: Pupils are equal, round and reactive to light accommodation. Eye muscles and extraocular movement intact. Sclera is anicteric. Neck; supple no lymphadenopathy, no thyromegaly or bruit Lungs: Normal respiratory rate/effort. Breath sounds bilateral equal and clear Heart: Normal rate. s1s2 normal. No rub or gallop. Extremities: no edema. No varicose veins Neurological: Patient is alert, awake and oriented to person, place and time. No focal deficit. Strength bilateral appropriate and equal Skin: Warm and dry. Normal turgor. No rash. Palpitation: Normal elasticity for age Abdomen: Abdomen is soft. Bowel sounds +. There is no abdominal tenderness, no guarding/rigidity or organomegaly. Psych: normal insight and normal affect/mood MSK: no joint tenderness or swelling. Digits and nails normal, no deformity : kidney or bladder not palpable Access: left AVF Labs/imaging reviewed. Past medical history, past surgical history, family history, social history, allergy reviewed and noted as below Family Hx: 2 brother on dialysis rest Non contributory Objective - Vital Signs/Intake and Output Vital Signs (last 24 hours): Temp Pulse Resp BP Pulse Ox 98.2 F 91 H 20 130/78 98 01/22/18 15:09 01/22/18 15:09 01/22/18 15:09 01/22/18 15:09 01/22/18 15:09 Intake and Output: 01/22/18 01/22/18 06:59 18:59 Intake Total 680 400 Balance 680 400 - Medications Medications: Current Medications Acetaminophen (Tylenol 325mg Tab) 650 mg PO Q4 PRN PRN Reason: Pain and temp >100.4 Last Admin: 01/18/18 17:13 Dose: 650 mg Aspirin (Ecotrin) 81 mg PO DAILY [facility] Last Admin: 01/22/18 13:59 Dose: 81 mg Cinacalcet (Sensipar) 60 mg PO DAILY [facility] Last Admin: 01/22/18 13:59 Dose: 60 mg Epoetin Ramirez (Procrit) 10,000 unit IV TTS [facility] Last Admin: 01/22/18 12:45 Dose: 10,000 unit Metronidazole (Flagyl) 500 mg in 100 mls @ 100 mls/hr IVPB Q8 [facility] PRN Reason: Protocol Last Admin: 01/22/18 05:54 Dose: 100 mls/hr Meropenem 500 mg/ Sodium (Chloride) 100 mls @ 100 mls/hr IVPB Q24H [facility] PRN Reason: Protocol Last Admin: 01/21/18 20:39 Dose: 100 mls/hr Gentamicin Sulfate 100 mg/ (Sodium Chloride) 102.5 mls @ 100 mls/hr IVPB TTS [facility] PRN Reason: Protocol Stop: 02/03/18 11:02 Losartan Potassium (Cozaar) 25 mg PO QPM [facility] Last Admin: 01/21/18 17:52 Dose: 25 mg Ondansetron HCl (Zofran Inj) 4 mg IVP Q6 PRN PRN Reason: Nausea/Vomiting Last Admin: 01/15/18 16:49 Dose: 4 mg Propranolol HCl (Inderal) 20 mg PO TID [facility] Last Admin: 01/22/18 14:00 Dose: 20 mg Saccharomyces Boulardii (Florastor) 250 mg PO Q12 [facility] Last Admin: 01/22/18 10:00 Dose: Not Given Sevelamer Carbonate (Renvela) 3,200 mg PO TIDCC [facility] Last Admin: 01/22/18 12:00 Dose: Not Given Vitamin B Complex/Vit C/Folic Acid (Nephro-Kell) 1 tab PO DAILY [facility] Last Admin: 01/22/18 13:59 Dose: 1 tab - Labs Labs: 01/20/18 11:13 01/18/18 19:46 PT 16.1 SECONDS (9.7-12.2) H 01/18/18 19:46 INR 1.4 01/18/18 19:46 APTT 33 SECONDS (21-34) 01/18/18 19:46
== END 2018-01-22 16:25 | disposition home or self-care (01) | DRG 689 ==
LOC: C.ER 15:15 → C.9E 17:33 → C.6T 18:51 → OBSVTOIN 01-13 17:56
PROVIDERS: ADMIT Internal Medicine Cardiovascular Disease; ATTEND Internal Medicine Cardiovascular Disease
PROC: 30233N1 Transfusion of Nonautologous Red Blood Cells into Peripheral Vein, Percutaneous Approach (ICD-10-PCS; 2018-01-18)
PROC: 5A1D70Z Performance of Urinary Filtration, Intermittent, Less than 6 Hours Per Day (ICD-10-PCS; 2018-01-18)
PROC: 0T913ZZ Drainage of Left Kidney, Percutaneous Approach (ICD-10-PCS; principal; 2018-01-19)
PROC: 5A1D70Z Performance of Urinary Filtration, Intermittent, Less than 6 Hours Per Day (ICD-10-PCS; 2018-01-20)
PROC: 5A1D70Z Performance of Urinary Filtration, Intermittent, Less than 6 Hours Per Day (ICD-10-PCS; 2018-01-22)
DX: N15.1 Renal and perinephric abscess (principal); I50.23 Acute on chronic systolic (congestive) heart failure; I13.2 Hypertensive heart and chronic kidney disease with heart failure and with stage 5 chronic kidney disease, or end stage renal disease; I42.9 Cardiomyopathy, unspecified; Z99.2 Dependence on renal dialysis; N18.6 End stage renal disease; I44.7 Left bundle-branch block, unspecified; N25.81 Secondary hyperparathyroidism of renal origin; E83.39 Other disorders of phosphorus metabolism; E66.9 Obesity, unspecified; D64.9 Anemia, unspecified; R07.9 Chest pain, unspecified; R06.02 Shortness of breath; Z68.35 Body mass index [BMI] 35.0-35.9, adult; N28.1 Cyst of kidney, acquired; B96.89 Other specified bacterial agents as the cause of diseases classified elsewhere